=== PATIENT | male | born 1975 | race African-American/Black ===

== ENCOUNTER 2017-12-01 20:26 | Observation (INO) | payer OTHER ==
[~2017-12-01] VITALS: Ht 180.3 cm; Wt 90.5 kg
[2017-12-01] MEDS ORDERED: SODIUM CHLORIDE 0.9% 1000ML 1,000 ML IV STA ×3 (20:57→22:52)
--- NOTE | 2017-12-01 21:04 | EMERGENCY ROOM VISIT NOTE ---
History Report prepared by Casper: Cheri Saldivar Under the Supervision of: Dr. Ray Barnhart M.D. First contact with patient: 20:49 Chief Complaint: SYNCOPE Stated Complaint: VERTIGO/ [facility] Nursing Triage Summary: syncopal episode yesterday after walking around. pt states he gets lighheaded blurry vision after walking around in the evening after he takes his medication depakote and dilatantin History of Present Illness The patient is a 42 year old male who presents to the Emergency Room with complaints of intermittent lightheadedness beginning about a week ago. The patient reports his lightheadedness worsens when he walks. He notes seeing black spots and feeling lightheaded. The patient takes Depakote and Dilantin. The patient reports he recently had his Depakote increased at [facility]. He believes his Depakote levels are too high. The patient reports he had not been eating much recently. He denies any abdominal pain or fevers. Source of History: patient Onset: lightheaded Position: other (gener) Quality: other (lightheadedness) Timing: intermittent Associated Symptoms: No fevers, No abdominal pain Review of Systems See HPI for pertinent positives & negatives. A total of 10 systems reviewed and were otherwise negative. Past Medical & Surgical Medical Problems: (1) Elevated phenytoin level (2) Schizophrenia spectrum disorder with psychotic disorder type not yet determined (3) Seizures Family History Patient reports no known family medical history. Social History Housing Status: other (fdc) Occupation Status: other (prisoner) Current/Historical Medications Scheduled Divalproex Sodium (Divalproex Sodium Dr), 500 MG PO TID Hydrochlorothiazide (Hydrochlorothiazide), 25 MG PO QAM Miscellaneous Medications Calcium Polycarbophil (Fiber Laxative) Allergies Coded Allergies: Acetaminophen (Unverified Allergy, Unknown, unknown, 12/01/17) Chlorpromazine (Unverified Allergy, Unknown, unknown, 12/01/17) Physical Exam Vital Signs Date Time Temp Pulse Resp B/P (MAP) Pulse Ox O2 Delivery O2 Flow Rate FiO2 12/02/17 01:40 76 13 98 12/02/17 01:30 175/107 12/02/17 01:10 76 22 95 12/02/17 01:00 171/110 12/02/17 00:40 74 16 96 12/02/17 00:39 76 12/02/17 00:30 158/94 12/02/17 00:10 76 22 12/02/17 00:05 76 20 12/01/17 23:35 75 17 96 12/01/17 23:30 77 23 182/101 94 12/01/17 23:00 77 13 156/102 95 12/01/17 22:45 74 20 161/104 95 Room Air 12/01/17 21:49 78 20 145/95 12/01/17 20:48 172/97 181/118 191/111 12/01/17 20:47 95 Room Air 12/01/17 20:47 77 12/01/17 20:39 37.1 73 20 172/97 95 Room Air Physical Exam GENERAL: Awake, alert, well-appearing, in no acute distress HENT: Normocephalic, atraumatic. Oropharynx unremarkable. EYES: Normal conjunctiva. Sclera non-icteric. NECK: Supple. No nuchal rigidity. FROM. No JVD. RESPIRATORY: Clear to auscultation. CARDIAC: Regular rate, normal rhythm. Extremities warm and well perfused. Pulses equal. ABDOMEN: Soft, non-distended. No tenderness to palpation. No rebound or guarding. No masses. RECTAL: Deferred. MUSCULOSKELETAL: Chest examination reveals no tenderness. The back is symmetrical on inspection without obvious abnormality. There is no CVA tenderness to palpation. No joint edema. LOWER EXTREMITIES: Calves are equal size bilaterally and non-tender. No edema. No discoloration. NEURO: Normal sensorium. No sensory or motor deficits noted. SKIN: No rash or jaundice noted. Medical Decision & Procedures Laboratory Results Test 12/01/17 20:40 12/01/17 22:08 Total Bilirubin 0.4 mg/dl (0.2-1) Direct Bilirubin < 0.1 mg/dl (0-0.2) Aspartate Amino Transf (AST/SGOT) 14 U/L (15-37) Alanine Aminotransferase (ALT/SGPT) 17 U/L (12-78) Alkaline Phosphatase 95 U/L (45-117) Total Creatine Kinase 117 U/L (39-308) Creatine Kinase MB 1.1 ng/ml (0.5-3.6) Creatine Kinase MB Ratio 0.9 (0-3.0) Total Protein 8.3 gm/dl (6.4-8.2) Albumin 4.0 gm/dl (3.4-5.0) Thyroid Stimulating Hormone (TSH) 1.090 uIu/ml (0.300-4.500) Valproic Acid (Depakene) Level 29 mcg/ml (50-100) Urine Color YELLOW Urine Appearance CLEAR (CLEAR) Urine pH 7.5 (4.5-7.5) Urine Specific [place] 1.013 (1.000-1.030) Urine Protein NEG (NEG) Urine Glucose (UA) NEG (NEG) Urine Ketones NEG (NEG) Urine Occult Blood NEG (NEG) Urine Nitrite NEG (NEG) Urine Bilirubin NEG (NEG) Urine Urobilinogen NEG (NEG) Urine Leukocyte Esterase NEG (NEG) Labs reviewed by ED physician. Medications Administered Medications (Trade) Dose Ordered Sig/Dawson Route Start Time Stop Time Status Last Admin Dose Admin Sodium Chloride 1,000 ml @ 999 mls/hr Q1H1M STAT IV 12/01/17 20:57 12/01/17 21:57 DC 12/01/17 21:08 999 MLS/HR Sodium Chloride 1,000 ml @ 999 mls/hr Q1H1M STAT IV 12/01/17 22:15 12/01/17 23:15 DC 12/01/17 22:17 999 MLS/HR Sodium Chloride 1,000 ml @ 999 mls/hr Q1H1M STAT IV 12/01/17 22:52 12/01/17 23:52 DC 12/01/17 22:56 999 MLS/HR Sodium Chloride 1,000 ml @ 150 mls/hr Q6H40M IV 12/02/17 01:39 12/02/17 15:23 DC 12/02/17 08:51 150 MLS/HR ECG Per My Interpretation Indication: syncope Rate (beats per minute): 80 Rhythm: normal sinus Findings: other (no ST elevation or depression, normal axis ) ED Course 2048: Past medical records reviewed. The patient was evaluated in room B10. A complete history and physical examination was performed. 2056: Ordered Sodium Chloride 1000 ml @ 999 mls/hr. 2214: Ordered Sodium Chloride 1000 ml @ 999 mls/hr. 2051: Ordered Sodium Chloride 1000 ml @ 999 mls/hr. 2215: I discussed the patient's case with the Poison Control Center. They said to give the patient fluids and repeat the level in four hours. Medical Decision Differential diagnosis: Etiologies such as benign positional vertigo, dehydration, hypovolemia, anemia, tumor, infection, hypoglycemia, electrolyte abnormalities, cardiac sources, intracerebral event, toxicologic, neurologic, as well as others were entertained. This is a 42-year-old male presents the emergency department over concerns he has been passing out and seeing black spots. The patient feels his epilepsy medication is too high. His Dilantin was found to be elevated. The patient was given a normal saline bolus 3. He was discussed with poison control who asked that a repeat level be obtained at the 4 hour marilee. When this was found to also be elevated they asked that the patient be admitted to the hospital. I did discuss the case with the hospitalist service who agreed to admit the patient. Patient was in agreement with the treatment plan. Medication Reconcilliation Current Medication List: was personally reviewed by me Impression Primary Impression: Elevated phenytoin level Scribe Attestation The scribe's documentation has been prepared under my direction and personally reviewed by me in its entirety. I confirm that the note above accurately reflects all work, treatment, procedures, and medical decision making performed by me. Departure Information Dispostion Home / Self-Care Prescriptions Hydrochlorothiazide (Hydrochlorothiazide) 25 Mg Tab 25 MG PO QAM for 30 Days, #30 TAB 0 Refills Prov: Josh. Hearn M.D. 12/05/17 Divalproex Sodium (Divalproex Sodium Dr) 500 Mg Tabec 500 MG PO TID for 30 Days, #90 UNIT 0 Refills Prov: Josh. Hearn M.D. 12/05/17 Referrals [facility] (PCP) Patient Instructions My [facility]
[2017-12-01 21:14] LABS: BASO % 0.3 %; BASO ABS # 0.02 K/uL (0-0.2); EOS % 3.6 %; EOS ABS # 0.24 K/uL (0-0.5); HEMATOCRIT 41.8 % (42-52); HEMOGLOBIN 15.6 g/dL (14.0-18.0); IG# 0.02 K/uL (0.00-0.02); LYMPH % 28.4 %; LYMPH ABS # 1.88 K/uL (1.2-3.4); MEAN CELL VOLUME 85.5 fL (80-100); MEAN CORPUSCULAR HEMOGLOBIN 31.9 pg (25-34); MEAN CORPUSCULAR HGB CONC 37.3 g/dl (32-36); MEAN PLATELET VOLUME 9.4 fL (7.4-10.4); MONO % 10.6 %; NEUT % 56.8 %; NEUT ABS # 3.75 K/uL (1.4-6.5); PLATELET COUNT 227 K/uL (130-400); RED CELL DISTRIBUTION WIDTH CV 12.2 % (11.5-14.5); RED CELL DISTRIBUTION WIDTH SD 37.9 fL (36.4-46.3); WHITE BLOOD COUNT 6.61 K/uL (4.8-10.8)
[2017-12-01 21:26] LABS: ALT/SGPT 17 U/L (12-78); BLOOD UREA NITROGEN 10 mg/dl (7-18); CALCIUM 8.7 mg/dl (8.5-10.1); CARBON DIOXIDE 29 mmol/L (21-32); CREATININE 0.83 mg/dl (0.60-1.40); GLUCOSE 134 mg/dl (70-99); POTASSIUM 3.4 mmol/L (3.5-5.1); SODIUM 139 mmol/L (136-145)
[2017-12-01 21:37] LABS: ALKALINE PHOSPHATASE 95 U/L (45-117); AST/SGOT 14 U/L (15-37); CKMB 1.1 ng/ml (0.5-3.6); TOTAL PROTEIN 8.3 gm/dl (6.4-8.2)
[2017-12-01 21:41] LABS: PHENYTOIN (DILANTIN) 43.8 mcg/mL (10-20)
[2017-12-01] MEDS ORDERED: HALO2TAB PO (22:03)
[2017-12-01] MEDS ORDERED: DLN100 PO (22:03)
[2017-12-01] MEDS ORDERED: LEVE250T PO (22:03)
[2017-12-01] MEDS ORDERED: CALC625T4 (22:03)
[2017-12-01] MEDS ORDERED: DIVA500T59 PO (22:03)
[2017-12-02] VITALS (7 sets, daily range): BP systolic 140–174; BP diastolic 79–100; PULSE 70–89; TEMP 36.7–37; O2SAT 96–99; Ht 180.3 cm; Wt 90.5 kg
[2017-12-02] MEDS ORDERED: POLYETHYLENE (MIRALAX) 17 GM PACK PO PRN (01:45)
[2017-12-02] MEDS ORDERED: ALUMINUM/MAGNESIUM/SIMETH (MAALOX MAX) 30 ML UDC PO PRN (01:45)
[2017-12-02] MEDS ORDERED: ONDANSETRON INJ 2 MG/ML 2 ML VIAL IV PRN (01:45)
[2017-12-02] MEDS ORDERED: MAGNESIUM HYDROXIDE SUSP 30 ML UDC PO PRN (01:45)
--- NOTE | 2017-12-02 02:00 | History and Physical ---
History & Physical Date & Time of Service: Dec 02, 2017 at 01:15 Chief Complaint: Vertigo/ Jose Primary Care Physician: Jose ESCOBAR History of Present Illness Source: patient 42M with a PMHx of seizure disorder p/w a one week history of intermittent lightheadedness that has been worsening. Pt reports seeing black spots and feeling lightheaded only when he stands. Chart from detention reviewed, patient reported feeling weak and tired. Pt was sent over for Dilantin level of 38. EKG form [facility] also reviewed and was WNL. In the ED his Phenytoin level was 43.8 and on recheck was 43.8. After consulting poison control IVF and Q6H Phynytoin level checks were recommended. Patient denies any other systemic complaints. He is upset at the detention for letting his Dilantin level go so high. Pt reports taking Haldol in the AM and states he doesn't take Keppra anymore. However [facility] show that he is getting Keppra regularly. Past Medical/Surgical History Medical Problems: (1) Seizures Family History Patient reports no known family medical history. Social History Occupational Status: other (prisoner) Allergies Coded Allergies: Acetaminophen (Unverified Allergy, Unknown, unknown, 12/01/17) Chlorpromazine (Unverified Allergy, Unknown, unknown, 12/01/17) Home Medications Scheduled Divalproex Sodium (Depakote), 1 TAB PO BID Haloperidol (Haloperidol), 1 TAB PO HS Levetiracetam (Keppra), 250 MG PO BID Phenytoin Sodium (Dilantin), 1 CAP PO TID Miscellaneous Medications Calcium Polycarbophil (Fiber Laxative) Review of Systems Constitutional: No fever, No chills Respiratory: No cough, No sputum, No shortness of breath Cardiovascular: No chest pain, No edema Abdomen: + constipation (x 4 days), No pain, No nausea Genitourinary - Male: No hematuria, No dysuria Neurologic: No memory loss, No paralysis, No numbness/tingling Psychiatric: No depression symptoms Integumentary: + problem reported (chronic dermatitis on L treadwell and Left ankle. ) Physical Exam Vital Signs Date Time Temp Pulse Resp B/P (MAP) Pulse Ox O2 Delivery O2 Flow Rate FiO2 12/02/17 00:39 76 12/02/17 00:05 76 20 12/01/17 23:35 75 17 96 12/01/17 23:30 77 23 182/101 94 12/01/17 23:00 77 13 156/102 95 12/01/17 22:45 74 20 161/104 95 Room Air 12/01/17 21:49 78 20 145/95 12/01/17 20:48 172/97 181/118 191/111 12/01/17 20:47 95 Room Air 12/01/17 20:47 77 12/01/17 20:39 37.1 73 20 172/97 95 Room Air General Appearance: WD/WN, no apparent distress Head: normocephalic, atraumatic Eyes: normal inspection, PERRL ENT: normal ENT inspection Neck: supple, no adenopathy, no JVD Respiratory/Chest: chest non-tender, lungs clear, normal breath sounds, no respiratory distress, no accessory muscle use Cardiovascular: regular rate, rhythm, no edema, no gallop, no JVD, no murmur, normal peripheral pulses Abdomen/GI: normal bowel sounds, non tender, soft, no organomegaly, no pulsatile mass Back: normal inspection, no CVA tenderness Extremities/Musculoskelatal: normal inspection, no calf tenderness, normal capillary refill, no pedal edema Neurologic/Psych: professor of english II-XII nml as tested, no motor/sensory deficits, alert, normal mood/affect, oriented x 3 Skin: normal color, warm/dry, no rash Diagnostics Laboratory Results Results Past 24 Hours Test 12/01/17 20:40 12/01/17 22:08 12/01/17 23:42 Range/Units White Blood Count 6.61 4.8-10.8 K/uL Red Blood Count 4.89 4.7-6.1 M/uL Hemoglobin 15.6 14.0-18.0 g/dL Hematocrit 41.8 42-52 % Mean Corpuscular Volume 85.5 80-100 fL Mean Corpuscular Hemoglobin 31.9 25-34 pg Mean Corpuscular Hemoglobin Concent 37.3 32-36 g/dl Platelet Count 227 130-400 K/uL Mean Platelet Volume 9.4 7.4-10.4 fL Neutrophils (%) (Auto) 56.8 % Lymphocytes (%) (Auto) 28.4 % Monocytes (%) (Auto) 10.6 % Eosinophils (%) (Auto) 3.6 % Basophils (%) (Auto) 0.3 % Neutrophils # (Auto) 3.75 1.4-6.5 K/uL Lymphocytes # (Auto) 1.88 1.2-3.4 K/uL Monocytes # (Auto) 0.70 0.11-0.59 K/uL Eosinophils # (Auto) 0.24 0-0.5 K/uL Basophils # (Auto) 0.02 0-0.2 K/uL RDW Standard Deviation 37.9 36.4-46.3 fL RDW Coefficient of Variation 12.2 11.5-14.5 % Immature Granulocyte % (Auto) 0.3 % Immature Granulocyte # (Auto) 0.02 0.00-0.02 K/uL Sodium Level 139 136-145 mmol/L Potassium Level 3.4 3.5-5.1 mmol/L Chloride Level 105 98-107 mmol/L Carbon Dioxide Level 29 21-32 mmol/L Anion Gap 5.0 3-11 mmol/L Blood Urea Nitrogen 10 7-18 mg/dl Creatinine 0.83 0.60-1.40 mg/dl Est Creatinine Clear Calc Drug Dose 123.4 ml/min Estimated GFR () 125.8 Estimated GFR (Non- 108.5 BUN/Creatinine Ratio 12.1 10-20 Random Glucose 134 70-99 mg/dl Calcium Level 8.7 8.5-10.1 mg/dl Total Bilirubin 0.4 0.2-1 mg/dl Direct Bilirubin < 0.1 0-0.2 mg/dl Aspartate Amino Transf (AST/SGOT) 14 15-37 U/L Alanine Aminotransferase (ALT/SGPT) 17 12-78 U/L Alkaline Phosphatase 95 45-117 U/L Total Creatine Kinase 117 39-308 U/L Creatine Kinase MB 1.1 0.5-3.6 ng/ml Creatine Kinase MB Ratio 0.9 0-3.0 Troponin I < 0.015 0-0.045 ng/ml Total Protein 8.3 6.4-8.2 gm/dl Albumin 4.0 3.4-5.0 gm/dl Thyroid Stimulating Hormone (TSH) 1.090 0.300-4.500 uIu/ml Phenytoin (Dilantin) Level 43.8 43.8 10-20 mcg/mL Valproic Acid (Depakene) Level 29 50-100 mcg/ml Urine Color YELLOW Urine Appearance CLEAR CLEAR Urine pH 7.5 4.5-7.5 Urine Specific [place] 1.013 1.000-1.030 Urine Protein NEG NEG Urine Glucose (UA) NEG NEG Urine Ketones NEG NEG Urine Occult Blood NEG NEG Urine Nitrite NEG NEG Urine Bilirubin NEG NEG Urine Urobilinogen NEG NEG Urine Leukocyte Esterase NEG NEG EKG Normal sinus rhythm Normal ECG No previous ECGs available Impression Assessment and Plan 42M p/w Phenytoin level of 43.8. Called poison control, they recommend checking it serially until it comes down to normal limits. Elevated Phenytoin (Dilantin) Called poison control and spoke to them directly, they recommend IVF and serial monitoring until the Phenytoin Levels come down to within normal limits. If patient is symptomatic they might need dialysis. Will check Dilantin Level Q6H. Hold Dilantin IVF NSS at 150mls/hr. Seizure Disorder Pt states that he doesn't take Keppra anymore, just depakote and Dilantin, however the detention records were reviewed by myself and it states that he does take Depakote, Keppra and Dilantin. Will continue Keppra and Depakote as stated in med rec and hold Phenytoin. Mood Disorder c/w Haldol 2mg QAM Dispo: From [facility]. Diet: Regular. Dispo: Obs to Tele. FULL CODE. Resident Involvement: Resident Care Provided Care Provided: Adult Hospital Medicine Reviewed: Pt Seen/Exam by Me History Patient seen and examined, chart reviewed, case discussed [facility] Dr. Magana and I agree with his assessement and plan. Briefly, patient is a 42yo AA male with history of seizure disorder who presents with Dilantin toxicity. Patient takes Dilantin daily, began feeling that he was unsteady on his feet and having some visual disturbances - black spots. His Dilantin level at the detention was found to be 38, in ER levels 43.8 x 2 draws. Poison control was contacted and recommended to monitor Dilantin level q 6 hours until resolution and IV hydration. Presently patient is without complaints. He states that he feels well. Denies pain, palpitations, SOB, n/v/d/c. Constitutional: acknowledges: no symptoms reported EENTM: acknowledges: no symptoms reported Respiratory: positive: no symptoms reported Cardiovascular: reports no symptoms reported Gastrointestinal/Abdominal: positive: no symptoms reported Musculoskeletal: positive: no symptoms reported General Appearance: WD/WN, no apparent distress Eye Exam: bilateral eye normal inspection, bilateral eye PERRL, bilateral eye EOMI Ears, Nose, Throat: normal ENT inspection Neck: non-tender, supple, trachea midline Respiratory: lungs clear, normal breath sounds, no respiratory distress, no accessory muscle use Cardiovascular: normal peripheral pulses, regular rate, rhythm, no edema, no gallop, no murmur Gastrointestinal: normal bowel sounds, non tender, soft Extremities: normal range of motion Neurologic/Psychiatric: no motor/sensory deficits (patient is giggling during exam), alert Skin Characteristics: normal color, warm/dry Assessment/Plan 42yo incarcerated AA male with history of seizures presents with Dilantin toxicity, level 43.8 1. Dilantin toxicity -Continue to monitor dilantin level q 6 hours -Continue IVF at 150mL/hr -Continue to monitor mental state, should patient decompensate will contact poison control -Check urine toxicology and acetaminophen level for possible coingestants 2. Seizure disorder - Continue Keppra and Depakote at prescribed doses 3. Mood disorder - Continue Haldol at prescribed dose 4. HTN - patient with elevated blood pressure this evening, 174/100. Asymptomatic. Continue to monitor for now. Will start PRN antihypertensive agent if persistently elevated 5. Remainder of plan per PGY2 note
[2017-12-02] MEDS: SODIUM CHLORIDE 0.9% 1000ML 1,000 ML IV SCH ×3 (03:00→18:08)
[2017-12-02] MEDS ORDERED: INFLUENZA VIRUS QUAD VACCINE 0.5 ML SYR IM. ONE (04:15)
[2017-12-02] MEDS ORDERED: INFLUENZA ADMINISTRATION CHARGE ONE (04:15)
[2017-12-02] MEDS ORDERED: IV FLUIDS COMPLETED PRN (04:30)
[2017-12-02 06:24] LABS: INR 1.1 (0.9-1.1)
[2017-12-02 06:39] LABS: CALCIUM 8.5 mg/dl (8.5-10.1); CREATININE 0.73 mg/dl (0.60-1.40); POTASSIUM 3.6 mmol/L (3.5-5.1)
[2017-12-02] MEDS: DIVALPROEX SODIUM 500 MG DELAY RELEASE TAB PO SCH ×2 (07:45→22:11)
[2017-12-02] MEDS: LEVETIRACETAM 250 MG TAB PO SCH ×2 (07:45→22:10)
[2017-12-02] MEDS: HEPARIN SOD 5000 UNIT/0.5 ML CARP SQ SCH ×2 (08:52→21:00)
[2017-12-02] MEDS ORDERED: HALOPERIDOL 1 MG TAB PO SCH (09:00)
--- NOTE | 2017-12-02 09:08 | Family Medicine Progress Note ---
Progress Note Date of Service Dec 02, 2017. Subjective Found patient sitting up, awake, conversing easily and lucidly. He says he's been taking the dilantin as prescribed and noted the symptoms per the HPI that resulted in his transfer here. At present, says his vision is a little blurry and that he still feels off-balance only when he is walking. Denies any focal weakness, numbness/tingling, headache, N/V, or other focal neuro concerns. He has concerns about being on haldol, saying it started about a week ago. He says he asked the medical staff at [facility] not to take it, they then said that would be a refusal of treatment, and the patient has concerns that would impact his future parole status. He denies any other acute medical concerns. Constitutional: No fever, No chills Eyes: + worsening of vision Respiratory: No cough, No shortness of breath Cardiovascular: No chest pain, No edema Abdomen: No pain, No nausea, No vomiting Neurologic: + balance problems, No weakness, No numbness/tingling Medications Current Inpatient Medications Medications (Trade) Dose Ordered Sig/Dawson Route Start Time Stop Time Status Last Admin Dose Admin Heparin Sodium (Porcine) (Heparin Sq 5000 Unit/0.5ml) 5,000 unit Q12 SQ 12/02/17 09:00 01/01/18 08:59 12/02/17 08:52 5,000 UNIT Sodium Chloride 1,000 ml @ 150 mls/hr [id number] IV 12/02/17 01:39 12/02/17 21:38 12/02/17 08:51 150 MLS/HR Al Hydrox/Mg Hydrox/Simethicone (Maalox Max Susp) 15 ml Q4H PRN PO 12/02/17 01:45 01/01/18 01:44 Magnesium Hydroxide (Milk Of Magnesia Susp) 30 ml Q12H PRN PO 12/02/17 01:45 01/01/18 01:44 Ondansetron HCl (Zofran Inj) 4 mg Q6H PRN IV 12/02/17 01:45 01/01/18 01:44 Polyethylene (Miralax Powder Packet) 17 gm DAILY PRN PO 12/02/17 01:45 01/01/18 01:44 Divalproex Sodium (Depakote Delay Rel Tab) 500 mg BID PO 12/02/17 09:00 01/01/18 08:59 12/02/17 07:45 500 MG Levetiracetam (Keppra Tab) 250 mg BID PO 12/02/17 09:00 01/01/18 08:59 12/02/17 07:45 250 MG Haloperidol (Haldol Tab) 2 mg QAM PO 12/02/17 09:00 01/01/18 08:59 12/02/17 07:45 2 MG Miscellaneous (Iv Fluids Completed) 1 ea PRN PRN N/A 12/02/17 04:30 12/02/18 04:29 Objective Vital Signs Date Time Temp Pulse Resp B/P (MAP) Pulse Ox O2 Delivery O2 Flow Rate FiO2 12/02/17 07:25 37.0 71 20 157/95 (115) 98 12/02/17 04:00 Room Air 12/02/17 02:35 36.7 73 19 174/100 97 Room Air 12/02/17 02:10 72 20 97 12/02/17 02:00 144/87 12/02/17 01:40 76 13 98 12/02/17 01:30 175/107 12/02/17 01:10 76 22 95 12/02/17 01:00 171/110 12/02/17 00:40 74 16 96 12/02/17 00:39 76 12/02/17 00:30 158/94 12/02/17 00:10 76 22 12/02/17 00:05 76 20 12/01/17 23:35 75 17 96 12/01/17 23:30 77 23 182/101 94 12/01/17 23:00 77 13 156/102 95 12/01/17 22:45 74 20 161/104 95 Room Air 12/01/17 21:49 78 20 145/95 12/01/17 20:48 172/97 181/118 191/111 12/01/17 20:47 95 Room Air 12/01/17 20:47 77 12/01/17 20:39 37.1 73 20 172/97 95 Room Air Physical Exam Notes: General Appearance: Awake, alert & oriented, conversing clearly and comfortably in general, NAD. CV: +S1S2 RRR, no murmur. No peripheral edema. Pulm: Clear to auscultation throughout. Abdomen: +BS, soft, non-tender, non-distended. Extremities: No pedal edema or calf tenderness. Moving all extremities naturally and easily. Neuro: Awake, alert x 3, in NAD. Says his vision is a little blurry. Denies any difficulty/weakness or numbness/tingling with extremity movements. [ Patient has related restraints present due to being under guard.] Later in afternoon, can walk without assistance and without any ataxia. Lines: PIV Laboratory Results 12/01/17 20:40 Red Blood Count 4.89, Mean Corpuscular Volume 85.5, Mean Corpuscular Hemoglobin 31.9, Mean Corpuscular Hemoglobin Concent 37.3, Mean Platelet Volume 9.4, Neutrophils (%) (Auto) 56.8, Lymphocytes (%) (Auto) 28.4, Monocytes (%) (Auto) 10.6, Eosinophils (%) (Auto) 3.6, Basophils (%) (Auto) 0.3, Neutrophils # (Auto ) 3.75, Lymphocytes # (Auto) 1.88, Monocytes # (Auto) 0.70, Eosinophils # (Auto ) 0.24, Basophils # (Auto) 0.02 12/02/17 06:00 Test 12/01/17 20:40 12/01/17 22:08 12/02/17 03:05 12/02/17 06:00 White Blood Count 6.61 K/uL (4.8-10.8) Red Blood Count 4.89 M/uL (4.7-6.1) Hemoglobin 15.6 g/dL (14.0-18.0) Hematocrit 41.8 % (42-52) Mean Corpuscular Volume 85.5 fL (80-100) Mean Corpuscular Hemoglobin 31.9 pg (25-34) Mean Corpuscular Hemoglobin Concent 37.3 g/dl (32-36) Platelet Count 227 K/uL (130-400) Mean Platelet Volume 9.4 fL (7.4-10.4) Neutrophils (%) (Auto) 56.8 % Lymphocytes (%) (Auto) 28.4 % Monocytes (%) (Auto) 10.6 % Eosinophils (%) (Auto) 3.6 % Basophils (%) (Auto) 0.3 % Neutrophils # (Auto) 3.75 K/uL (1.4-6.5) Lymphocytes # (Auto) 1.88 K/uL (1.2-3.4) Monocytes # (Auto) 0.70 K/uL (0.11-0.59) Eosinophils # (Auto) 0.24 K/uL (0-0.5) Basophils # (Auto) 0.02 K/uL (0-0.2) RDW Standard Deviation 37.9 fL (36.4-46.3) RDW Coefficient of Variation 12.2 % (11.5-14.5) Immature Granulocyte % (Auto) 0.3 % Immature Granulocyte # (Auto) 0.02 K/uL (0.00-0.02) Total Bilirubin 0.4 mg/dl (0.2-1) Direct Bilirubin < 0.1 mg/dl (0-0.2) Aspartate Amino Transf (AST/SGOT) 14 U/L (15-37) Alanine Aminotransferase (ALT/SGPT) 17 U/L (12-78) Alkaline Phosphatase 95 U/L (45-117) Total Creatine Kinase 117 U/L (39-308) Creatine Kinase MB 1.1 ng/ml (0.5-3.6) Creatine Kinase MB Ratio 0.9 (0-3.0) Troponin I < 0.015 ng/ml (0-0.045) Total Protein 8.3 gm/dl (6.4-8.2) Albumin 4.0 gm/dl (3.4-5.0) Thyroid Stimulating Hormone (TSH) 1.090 uIu/ml (0.300-4.500) Valproic Acid (Depakene) Level 29 mcg/ml (50-100) Urine Color YELLOW Urine Appearance CLEAR (CLEAR) Urine pH 7.5 (4.5-7.5) Urine Specific [place] 1.013 (1.000-1.030) Urine Protein NEG (NEG) Urine Glucose (UA) NEG (NEG) Urine Ketones NEG (NEG) Urine Occult Blood NEG (NEG) Urine Nitrite NEG (NEG) Urine Bilirubin NEG (NEG) Urine Urobilinogen NEG (NEG) Urine Leukocyte Esterase NEG (NEG) Urine Opiates Screen NEG (NEG) Urine Methadone, Qualitative NEG (NEG) Urine Barbiturates NEG (NEG) Urine Phencyclidine (PCP) Level NEG (NEG) Ur Amphetamine/Methamphetamine NEG (NEG) MDMA (Ecstasy) Screen NEG (NEG) Urine Benzodiazepines Screen NEG (NEG) Urine Cocaine Metabolite NEG (NEG) Urine Marijuana (THC) NEG (NEG) Prothrombin Time 11.4 SECONDS (9.0-12.0) Prothromb Time International Ratio 1.1 (0.9-1.1) Anion Gap 7.0 mmol/L (3-11) Est Creatinine Clear Calc Drug Dose 140.3 ml/min Estimated GFR () 132.6 Estimated GFR (Non- 114.4 BUN/Creatinine Ratio 10.2 (10-20) Calcium Level 8.5 mg/dl (8.5-10.1) Phenytoin (Dilantin) Level 44.9 mcg/mL (10-20) Date/Time Source Procedure Growth Status 12/02/17 03:56 Nasal MRSA DNA Surveillance Screen - Final Specimen Negative for MRSA by DNA Probe Complete Assessment and Plan 42 yo male admitted on [id number] for ataxia, visual disturbances, and supratherapeutic Dilantin level. PMH: Seizures, hemorrhoids, ? unspecified schizophrenia spectrum Dilantin toxicity: Reported initial symptoms of ataxia and visual disturbances ( black spots). Dilantin level 43. Serial measurements ongoing. Treatment is supportive. This AM, no evidence of AMS or acute seizures. Seizure disorder: Per [facility] medical records, is on keppra, depakote, and dilantin. Patient says last seizure was in May 2016. There is some concern about his being on three medications of (per patient) serially-increasing levels without reported seizure worsening. Admittedly, full records from [facility] are not acutely available. - Consulted neurology in hopes of providing updated recommendations for outpatient seizure prophylaxis management. ? Unspecified schizophrenia spectrum: Per provided [facility] medical reconciliation, started on Haldol 2 mg daily about a week prior to admission. Patient says he is unsure why he is on this medication, denying any visual or auditory hallucinations in recent years (but does admit he has had such in the past). He expresses concerns that he is being required to take the medication against his will at [facility], meaning if he does not do so it will be recorded as a treatment refusal (which reportedly can effect his parole status). - Holding haldol dosing as inpatient for now. - Consulted psychiatry in hopes of providing updated recommendations for outpatient use (or hold) of this medication. Code status: Full code Diet: Regular DVT prophy: Heparin q12h PT/OT: Deferred. Disbo: Admit to med/surg. Resident at [facility]. Resident Physician Supervision Note: I was present with Dr. Hearn during the history and exam. I discussed the case with the resident and agree with the findings and plan as documented in the note. Any exceptions or clarifications are listed here: The patient reports mild but progressive symptoms for about 10 months, which he believes started shortly after his Dilantin was increased upon his transfer from [facility] to [facility]. The patient describes a mental fog and generalized slowness. More recently, haldol was added to his medical regimen and he noted an acute worsening of symptoms, including ataxia and visual disturbances. He reports his last seizure was in 2015. He cannot recall or os not aware of his last Dilantin level prior to this admission. Continue to hold Dilantin; since he was on extended release, may take a while to normalize. Once it improves, can space out Dilantin levels. Decrease IVF to 75/hr. Will also hold Haldol for the time being; his psychiatric history and diagnosis are not clear at this point, and the Haldol was only recently started (in the setting of a supra therapeutic Dilantin level). Documented By: Juan Bustamante Resident Tracking Resident Involvement: Resident Care Provided Care Provided: Adult Hospital Medicine (inpatient)
[2017-12-03] VITALS (11 sets, daily range): BP systolic 134–157; BP diastolic 81–96; PULSE 69–85; TEMP 36.5–37.1; O2SAT 94–98
[2017-12-03] MEDS: SODIUM CHLORIDE 0.9% 1000ML 1,000 ML IV SCH ×2 (06:18→19:38)
[2017-12-03 06:32] LABS: CALCIUM 8.4 mg/dl (8.5-10.1); CREATININE 0.78 mg/dl (0.60-1.40); POTASSIUM 3.6 mmol/L (3.5-5.1)
[2017-12-03 06:42] LABS: HEMATOCRIT 41.8 % (42-52); HEMOGLOBIN 15.4 g/dL (14.0-18.0); MEAN CELL VOLUME 84.4 fL (80-100); MEAN CORPUSCULAR HEMOGLOBIN 31.1 pg (25-34); MEAN CORPUSCULAR HGB CONC 36.8 g/dl (32-36); MEAN PLATELET VOLUME 9.4 fL (7.4-10.4); PLATELET COUNT 204 K/uL (130-400); RED CELL DISTRIBUTION WIDTH CV 12.3 % (11.5-14.5); RED CELL DISTRIBUTION WIDTH SD 37.8 fL (36.4-46.3); WHITE BLOOD COUNT 6.69 K/uL (4.8-10.8)
[2017-12-03 06:47] LABS: BASO % 0.1 %; BASO ABS # 0.01 K/uL (0-0.2); EOS % 2.8 %; EOS ABS # 0.19 K/uL (0-0.5); IG# 0.01 K/uL (0.00-0.02); LYMPH % 25.3 %; LYMPH ABS # 1.69 K/uL (1.2-3.4); MONO % 14.2 %; MONO ABS # 0.95 K/uL (0.11-0.59); NEUT % 57.5 %; NEUT ABS # 3.84 K/uL (1.4-6.5)
[2017-12-03] MEDS: DIVALPROEX SODIUM 500 MG DELAY RELEASE TAB PO SCH ×3 (08:28→20:44)
[2017-12-03] MEDS: LEVETIRACETAM 250 MG TAB PO SCH (08:28)
[2017-12-03] MEDS: HEPARIN SOD 5000 UNIT/0.5 ML CARP SQ SCH ×2 (08:30→20:45)
--- NOTE | 2017-12-03 12:54 | Neurology Consultation ---
Neurology Consultation Date of Consultation: Dec 03, 2017. Attending Physician: Juan Bustamante D.O. Primary Care Physician: Jose ESCOBAR Reason for Consultation: Consult for seizure medication management History of Present Illness Source: patient, hospital records This is a 42-year-old male who presents with symptoms of lightheadedness for the past week. There are reports that his Depakote was recently increased. Reports that he has been on Dilantin for a long time but cannot tell me specifically how long. History somewhat limited from the patient the patient often does not give very exact details for his epilepsy history and management. He reports that he first started to have seizures somewhere between the age of 9 and 13 years old. He cannot tell me if there is any warning auras beforehand or what the seizure description is. He reports that he has been on Dilantin and Depakote for a long time. He reports his highest dose of Depakote was 500 mg 3 times a day. He denies any recent changes to his Dilantin. He reports that Keppra was the most recent medication added on but made him sleepy and he felt that it should have been stopped although he is not certain why it was still being given in the alf. He reports that his last seizure was May 2016. 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 He reports that he has had CT of the heads in the past but never any EEGs. He does not remember ever seen a neurologist in the past. He reports a family history of his father also having seizures. No other family members with known seizures. This morning the patient still feels dizzy when he gets up and moves around but otherwise seems slightly better than when he initially presented. Labs were reviewed. Unremarkable CBC and complete metabolic panel. Valproic acid level was 29. Phenytoin level was 44 on presentation and most recently 38 Past Medical/Surgical History Reports of some sort of schizophrenia spectrum disorder Patient reports a history of suicidal ideation Family History Family history father with seizures Social History Currently the patient is incarcerated. He denies any tobacco, alcohol, or illegal drug use Housing Status: other (alf) Occupation Status: other (prisoner) Allergies Coded Allergies: Acetaminophen (Unverified Allergy, Unknown, unknown, 12/01/17) Chlorpromazine (Unverified Allergy, Unknown, unknown, 12/01/17) Current Inpatient Medications Current Inpatient Medications Medications (Trade) Dose Ordered Sig/Dawson Route Start Time Stop Time Status Last Admin Dose Admin Heparin Sodium (Porcine) (Heparin Sq 5000 Unit/0.5ml) 5,000 unit Q12 SQ 12/02/17 09:00 01/01/18 08:59 12/03/17 08:30 5,000 UNIT Al Hydrox/Mg Hydrox/Simethicone (Maalox Max Susp) 15 ml Q4H PRN PO 12/02/17 01:45 01/01/18 01:44 Magnesium Hydroxide (Milk Of Magnesia Susp) 30 ml Q12H PRN PO 12/02/17 01:45 01/01/18 01:44 Ondansetron HCl (Zofran Inj) 4 mg Q6H PRN IV 12/02/17 01:45 01/01/18 01:44 Polyethylene (Miralax Powder Packet) 17 gm DAILY PRN PO 12/02/17 01:45 01/01/18 01:44 Divalproex Sodium (Depakote Delay Rel Tab) 500 mg BID PO 12/02/17 09:00 01/01/18 08:59 12/03/17 08:28 500 MG Levetiracetam (Keppra Tab) 250 mg BID PO 12/02/17 09:00 01/01/18 08:59 12/03/17 08:28 250 MG Miscellaneous (Iv Fluids Completed) 1 ea PRN PRN N/A 12/02/17 04:30 12/02/18 04:29 Sodium Chloride 1,000 ml @ 75 mls/hr [id number] IV 12/02/17 17:45 01/01/18 17:44 12/03/17 06:18 75 MLS/HR Review of Systems Complete review of systems otherwise negative except for the above-noted in HPI Physical Exam Vital Signs (Past 24 Hrs): Date Time Temp Pulse Resp B/P (MAP) Pulse Ox O2 Delivery O2 Flow Rate FiO2 12/03/17 11:36 36.9 85 18 148/88 (108) 98 12/03/17 08:00 95 Room Air 12/03/17 07:19 36.9 69 18 142/82 (102) 95 12/03/17 04:00 36.7 76 18 134/88 (103) 97 Room Air 12/03/17 04:00 Room Air 3/31/18 00:00 Room Air 12/03/17 00:00 36.5 81 18 153/96 (115) 94 Room Air 12/02/17 20:13 36.9 89 20 140/79 (99) 99 Room Air 12/02/17 20:00 96 Room Air 12/02/17 16:00 96 Room Air 12/02/17 14:33 37.0 78 18 160/93 (115) 96 Gen.: Patient is alert and sitting in bed, in no acute distress. HEENT: Normocephalic /atraumatic, no scleral icterus Heart: Regular rate and rhythm Extremities: No gross deformities or rashes noted Neurological examination: Mental status: Patient is alert and oriented x3. Attention and concentration normal for the situation. Poor fund of knowledge. Recent memory intact. Remote memory seems questionable, and overall the patient is a poor historian. Speech is fluent without any dysarthria or aphasia noted Cranial nerve: Funduscopic examination was unremarkable. No papilledema. Pupils equally round and reactive to light. Extraocular muscles intact without nystagmus. No facial asymmetry noted. Facial sensation intact. Tongue is midline. Good palatal elevation. Good shoulder shrug bilaterally. Hearing grossly intact to voice. Strength: 5/5 both proximal and distally in all extremities. There is no arm drift. Tone is normal. Sensation: Grossly intact to light touch in all extremities. Deep tendon reflexes: +1 in bilateral biceps, brachioradialis and patellar. Coordination: Patient had good finger to nose without dysmetria Station within the bed was normal Laboratory Results Past 24 Hours: 12/03/17 05:25 Red Blood Count 4.95, Mean Corpuscular Volume 84.4, Mean Corpuscular Hemoglobin 31.1, Mean Corpuscular Hemoglobin Concent 36.8, Mean Platelet Volume 9.4, Neutrophils (%) (Auto) 57.5, Lymphocytes (%) (Auto) 25.3, Monocytes (%) (Auto) 14.2, Eosinophils (%) (Auto) 2.8, Basophils (%) (Auto) 0.1, Neutrophils # (Auto ) 3.84, Lymphocytes # (Auto) 1.69, Monocytes # (Auto) 0.95, Eosinophils # (Auto ) 0.19, Basophils # (Auto) 0.01 12/03/17 05:25 Test 3/31/18 05:25 White Blood Count 6.69 K/uL (4.8-10.8) Red Blood Count 4.95 M/uL (4.7-6.1) Hemoglobin 15.4 g/dL (14.0-18.0) Hematocrit 41.8 % (42-52) Mean Corpuscular Volume 84.4 fL (80-100) Mean Corpuscular Hemoglobin 31.1 pg (25-34) Mean Corpuscular Hemoglobin Concent 36.8 g/dl (32-36) Platelet Count 204 K/uL (130-400) Mean Platelet Volume 9.4 fL (7.4-10.4) Neutrophils (%) (Auto) 57.5 % Lymphocytes (%) (Auto) 25.3 % Monocytes (%) (Auto) 14.2 % Eosinophils (%) (Auto) 2.8 % Basophils (%) (Auto) 0.1 % Neutrophils # (Auto) 3.84 K/uL (1.4-6.5) Lymphocytes # (Auto) 1.69 K/uL (1.2-3.4) Monocytes # (Auto) 0.95 K/uL (0.11-0.59) Eosinophils # (Auto) 0.19 K/uL (0-0.5) Basophils # (Auto) 0.01 K/uL (0-0.2) RDW Standard Deviation 37.8 fL (36.4-46.3) RDW Coefficient of Variation 12.3 % (11.5-14.5) Immature Granulocyte % (Auto) 0.1 % Immature Granulocyte # (Auto) 0.01 K/uL (0.00-0.02) Toxic Vacuolation 1+ Anion Gap 6.0 mmol/L (3-11) Est Creatinine Clear Calc Drug Dose 131.3 ml/min Estimated GFR () 129.0 Estimated GFR (Non- 111.3 BUN/Creatinine Ratio 13.3 (10-20) Calcium Level 8.4 mg/dl (8.5-10.1) Phenytoin (Dilantin) Level 38.3 mcg/mL (10-20) Impression This is a 42-year-old male who presented with Dilantin toxicity. More than likely any recent increase in Depakote could have raised his Dilantin level. Coadministration of Depakote and Dilantin tends to decrease Depakote level and increase Dilantin level. Overall it is not clear to me why the patient is on 3 seizure medications when neither of them are at maximal effective dose, and the patient is likely experiencing polypharmacy from these medications. Patient's history of epilepsy is not well-established at this time and it is unclear to me if he has ever had a complete workup such as an MRI of the brain and EEG. Plan Overall Dilantin is probably not the best medication for the patient to be on long-term due to adverse long-term side effects. In addition Keppra is probably not the best medication for the patient to be on due to risk of worsening mood and psychiatric symptoms. Trying to optimize Depakote would probably be the best option for the patient. Recommend permanently discontinuing phenytoin and Keppra. Patient has been on higher doses of Depakote in the past. When the patient is no longer toxic from Dilantin, would consider increasing Depakote back up to 500 mg 3 times daily (which the patient reports he has been on in the past without any side effects). Patient will need CBC and complete metabolic panel every 6 months while on Depakote to monitor for drug toxicity. Depakote dosing does not necessarily need to be increased if the patient is not having clinical seizures ( even if levels are low) If there is concern for additional clinical seizure in the future the patient will probably benefit from a neurology outpatient workup to try to classify and establish what type of seizures he has. Thank you for allowing me to participate in this patient's care. If there is any questions or concerns, feel free to call/page me.
--- NOTE | 2017-12-03 13:16 | Psychiatric Consultation ---
Consultation Date of Consultation Dec 03, 2017. Identifying Data The patient is a 42 year old Male, incarcerated at [facility] since October 2017 and who has a past psychiatric history of ADHD and unspecified Schizophrenia Spectrum Disorder as well as past medical history of Seizure Disorder recently admitted complaints of light headedness, feeling weak and tired a few days prior to admission in the context of an elevated Dilantin level. Prior to these symptoms, the patient reports he had been feeling well. He is awaiting parole. Chief Complaint "I was told to come here". History of Present Illness The patient is a 42 year old Male with history of Unspecified Schizophrenia Spectrum Disorder and Seizure Disorder who was admitted to the general medical floor after ED evaluation on 12/01/17 due to Dilantin toxicity in the context of new onset physical symptoms of unwitnessed syncope, light headedness, fatigue and weakness beginning a few days prior to to admission. The patient reports on 12/01/17 he received a mandatory notice to report to the intermediate medical office due to a medication related issue. He was unsure what the issue was and relates that he had no physical complaints at that time. He was told his Dilantin levels were elevated which necessitated evaluation and treatment in the ED. The patient also relates that a few days prior to his recent symptoms, he was prescribed Haldol by his intermediate psychiatrists after a routine visit. He reports being asked if he was experiencing A/V Hallucinations of which he denied.However , after speaking with [facility] AOC DIRECTOR INTELLIGENCE OFFICERPayton Ocasio, the medical record reveals that the patient did express acute onset of auditory hallucinations. The AOC DIRECTOR INTELLIGENCE OFFICER reports there is no record of the patient reporting auditory symptoms prior to this. The patient denies feeling down, depressed and hopeless. He denies SI/HI plan or intent. He admits to feeling anxious because he wants to make parole. He reports his sleep and appetite are good. Energy and motivation levels are good. Denies nicole, hypomania or psychosis symptoms. He reports feeling physically well. Past Psychiatric History Current OP Treatment: psychiatrist Prior OP Treatment: no prior treatment Prior Psych Hospitalizations: none Access to a Gun: No Suicide Attempts: No Past Medical/Surgical History History of Concussion/Seizure: Yes Allergies Allergies: Coded Allergies: Acetaminophen (Unverified Allergy, Unknown, unknown, 12/01/17) Chlorpromazine (Unverified Allergy, Unknown, unknown, 12/01/17) Home Medications Scheduled Divalproex Sodium (Divalproex Sodium Dr), 500 MG PO TID Hydrochlorothiazide (Hydrochlorothiazide), 25 MG PO QAM Miscellaneous Medications Calcium Polycarbophil (Fiber Laxative) Family History Patient reports no known family medical history. History of Suicide: No History of Substance Abuse: No Psychiatric History: No Alcohol Use Alcohol Use In Past 12 Months: No Smoking Use Smoking Status: Never Smoker Personal History Education: started high school Relationship History: never Children: 7 children: 6 boys and 1 girl Legal History: reported (multiple incarcerations) Review of Systems Psych: denies symptoms other than stated above Constitutional: denied Cardiovascular: denied GI: denied Neurologic: denied Remainder of 10 body systems also reviewed and denied other than noted above. Examination Vital Signs Vital Signs Past 12 Hours Date Time Temp Pulse Resp B/P (MAP) Pulse Ox O2 Delivery O2 Flow Rate FiO2 12/03/17 11:36 36.9 85 18 148/88 (108) 98 12/03/17 08:00 95 Room Air 12/03/17 07:19 36.9 69 18 142/82 (102) 95 12/03/17 04:00 36.7 76 18 134/88 (103) 97 Room Air 12/03/17 04:00 Room Air 12/03/17 00:00 Room Air 12/03/17 00:00 36.5 81 18 153/96 (115) 94 Room Air Laboratory Results Last 24 Hours Test 12/02/17 12:08 12/02/17 18:07 12/03/17 05:25 Phenytoin (Dilantin) Level 41.5 mcg/mL 37.9 mcg/mL 38.3 mcg/mL White Blood Count 6.69 K/uL Red Blood Count 4.95 M/uL Hemoglobin 15.4 g/dL Hematocrit 41.8 % Mean Corpuscular Volume 84.4 fL Mean Corpuscular Hemoglobin 31.1 pg Mean Corpuscular Hemoglobin Concent 36.8 g/dl Platelet Count 204 K/uL Mean Platelet Volume 9.4 fL Neutrophils (%) (Auto) 57.5 % Lymphocytes (%) (Auto) 25.3 % Monocytes (%) (Auto) 14.2 % Eosinophils (%) (Auto) 2.8 % Basophils (%) (Auto) 0.1 % Neutrophils # (Auto) 3.84 K/uL Lymphocytes # (Auto) 1.69 K/uL Monocytes # (Auto) 0.95 K/uL Eosinophils # (Auto) 0.19 K/uL Basophils # (Auto) 0.01 K/uL RDW Standard Deviation 37.8 fL RDW Coefficient of Variation 12.3 % Immature Granulocyte % (Auto) 0.1 % Immature Granulocyte # (Auto) 0.01 K/uL Toxic Vacuolation 1+ Sodium Level 138 mmol/L Potassium Level 3.6 mmol/L Chloride Level 104 mmol/L Carbon Dioxide Level 28 mmol/L Anion Gap 6.0 mmol/L Blood Urea Nitrogen 10 mg/dl Creatinine 0.78 mg/dl Est Creatinine Clear Calc Drug Dose 131.3 ml/min Estimated GFR () 129.0 Estimated GFR (Non- 111.3 BUN/Creatinine Ratio 13.3 Random Glucose 86 mg/dl Calcium Level 8.4 mg/dl Mental Examination During interview pt is: alert and oriented, cooperative Appearance: appropriately dressed, appropriately groomed Eye contact is: fair Motor behavior is: no abnormal motor movements Speech: normal in rate, rhythm & volume Affect: mood congruent Mood is: irritable Thought process: clear, coherent Thought content: reality based without delusions Suicidal thought are: denied, Plan: denied, Intent: denied Homicidal thoughts are: denied, Plan: denied, Intent: denied Hallucinations: denies auditory, denies visual Cognition: memory grossly intact, attention grossly intact Intelligence estimated to be: consistent with level of education Insight: limited Judgement: limited Impression / Recommendations Impression 42 year old Male who is incarcerated at [facility] with a history of Seizure Disorder and unspecified Schizophrenia Spectrum Disorder and ADHD admitted to [facility] via the ED on 12/01/17 after transfer from [facility] with elevated Dilantin levels and recently voiced complaints to [facility] medical staff of an unwitnessed syncopal episode, generalized weakness and fatigue. The patients last seizure was in 2016. Due to his elevated Dilantin levels the patient was admitted for monitoring of his symptoms. The Dilantin was held until levels normalize. The patient expressed irritability at recently being placed on Haldol for AH but after discussion with [facility] AOC DIRECTOR INTELLIGENCE OFFICER nurse the patient apparently did voice acute onset of AH a few days before experiencing his physical complaints. It is unclear if the Dilantin Toxicity played a part in the onset of AH. Inventory Assets Strengths: kids Needs: [place] Risk Factors Assessment Male: Yes : No /single/: Yes Higher / Fall in social status: Yes Access to guns: No Health problems: Yes Mental Health Diagnoses: Yes Substance use disorders: No Previous attempt: No Previous psychiatric stay: No Hopelessness: No Smoker: No Protective Factors Assessment : No Responsible for young children: Yes Employed: Yes Stable relationships: No Supportive family: No Good rapport with provider: No Recommendations (1) Schizophrenia spectrum disorder with psychotic disorder type not yet determined The patient appears to be stable psychiatrically at this time. The AH that he recently experienced are no longer being voiced. To continue his psychiatric care at [facility] where he is housed. Defer psychotropic medication issues back to his psychiatric provider at [facility] as we do not have background information. He currently is not in need of psychiatric medication adjustment as he is voicing no concerns.
--- NOTE | 2017-12-03 15:09 | Family Medicine Progress Note ---
Progress Note Date of Service Dec 03, 2017. Subjective Pt evaluation today including: conversation w/ patient, physical exam, chart review, lab review Pain: denies any pain this AM PO Intake: tolerating Voiding: no voiding problems This AM pt reports feeling "ok" when in bed but when moves around or walks feels "off balance". Kyle off balance after showering yesterday. Appetite has improved. Denies any seizures. Otherwise asymptomatic Constitutional: No fever Respiratory: No shortness of breath Cardiovascular: No chest pain Abdomen: No pain, No nausea, No vomiting Male : No dysuria Neurologic: + balance problems Medications Current Inpatient Medications Medications (Trade) Dose Ordered Sig/Dawson Route Start Time Stop Time Status Last Admin Dose Admin Heparin Sodium (Porcine) (Heparin Sq 5000 Unit/0.5ml) 5,000 unit Q12 SQ 12/02/17 09:00 01/01/18 08:59 12/03/17 08:30 5,000 UNIT Al Hydrox/Mg Hydrox/Simethicone (Maalox Max Susp) 15 ml Q4H PRN PO 12/02/17 01:45 01/01/18 01:44 Magnesium Hydroxide (Milk Of Magnesia Susp) 30 ml Q12H PRN PO 12/02/17 01:45 01/01/18 01:44 Ondansetron HCl (Zofran Inj) 4 mg Q6H PRN IV 12/02/17 01:45 01/01/18 01:44 Polyethylene (Miralax Powder Packet) 17 gm DAILY PRN PO 12/02/17 01:45 01/01/18 01:44 Miscellaneous (Iv Fluids Completed) 1 ea PRN PRN N/A 12/02/17 04:30 12/02/18 04:29 Sodium Chloride 1,000 ml @ 75 mls/hr [id number] IV 12/02/17 17:45 01/01/18 17:44 12/03/17 06:18 75 MLS/HR Divalproex Sodium (Depakote Delay Rel Tab) 500 mg TID PO 12/03/17 21:00 01/01/18 08:59 UNV Objective Vital Signs Date Time Temp Pulse Resp B/P (MAP) Pulse Ox O2 Delivery O2 Flow Rate FiO2 12/03/17 12:00 98 Room Air 12/03/17 11:36 36.9 85 18 148/88 (108) 98 12/03/17 08:00 95 Room Air 12/03/17 07:19 36.9 69 18 142/82 (102) 95 12/03/17 04:00 36.7 76 18 134/88 (103) 97 Room Air 12/03/17 04:00 Room Air 12/03/17 00:00 Room Air 12/03/17 00:00 36.5 81 18 153/96 (115) 94 Room Air 12/02/17 20:13 36.9 89 20 140/79 (99) 99 Room Air 12/02/17 20:00 96 Room Air 12/02/17 16:00 96 Room Air Physical Exam General Appearance: no apparent distress Eyes: normal inspection Respiratory/Chest: lungs clear, normal breath sounds Cardiovascular: regular rate, rhythm, no edema Abdomen: normal bowel sounds, non tender, soft Extremities: non-tender, no pedal edema Neurologic/Psychiatric: alert, oriented x 3 Skin: warm/dry Laboratory Results Last Resulted 12/03/17 05:25 Red Blood Count 4.95, Mean Corpuscular Volume 84.4, Mean Corpuscular Hemoglobin 31.1, Mean Corpuscular Hemoglobin Concent 36.8, Mean Platelet Volume 9.4, Neutrophils (%) (Auto) 57.5, Lymphocytes (%) (Auto) 25.3, Monocytes (%) (Auto) 14.2, Eosinophils (%) (Auto) 2.8, Basophils (%) (Auto) 0.1, Neutrophils # (Auto ) 3.84, Lymphocytes # (Auto) 1.69, Monocytes # (Auto) 0.95, Eosinophils # (Auto ) 0.19, Basophils # (Auto) 0.01 Last Resulted 12/03/17 05:25 Assessment and Plan 42 yo male admitted for ataxia, visual disturbances likely in the setting of supratherapeutic Dilantin level. PMH: Seizures, hemorrhoids, ? unspecified schizophrenia spectrum Dilantin toxicity: improved visual disturbance/MS, continues to have ataxia - This AM Dilantin level 38.3 - Continue monitoring Dilantin level BID Seizure disorder: No new seizure activity - Last seizure was in May 2016. - Neurology consulted: please refer to note - Increased Depakote to 500mg TID - check CBC and CMP [id number] for drug toxicity - DC keppra and Dilantin permanently Unspecified schizophrenia: - Holding Haldol started at [facility] - Psych consulted: concern for acute AH few days ago - stale at this point Code status: Full code Diet: Regular DVT prophy: Heparin q12h PT/OT: Deferred Disbo: Admit to med/surg. Resident at [facility] Resident Physician Supervision Note: I was present with Dr. Escalera during the history and exam. I discussed the case with the resident and agree with the findings and plan as documented in the note. Dilantin levels continue to decrease, although still supra therapeutic. Appreciate neurology and psychiatry consultations. PLAN 1) Discontinue Keppra, and continue Depakote as mono therapy. 2) Will not restart Haldol. His symptoms for which the Haldol was recently added may have been attributable to Dilantin toxicity. 3) Trend Dilantin levels; could change to daily tomorrow. Documented By: Juan Bustamante Resident Involvement: Resident Care Provided Care Provided: Adult Hospital Medicine
[2017-12-04] VITALS (7 sets, daily range): BP systolic 145–172; BP diastolic 84–116; PULSE 69–84; TEMP 36.7–37; O2SAT 95–98
[2017-12-04] MEDS: DIVALPROEX SODIUM 500 MG DELAY RELEASE TAB PO SCH ×3 (08:18→21:10)
[2017-12-04] MEDS: HEPARIN SOD 5000 UNIT/0.5 ML CARP SQ SCH ×2 (08:19→21:00)
[2017-12-04] MEDS: SODIUM CHLORIDE 0.9% 1000ML 1,000 ML IV SCH (08:21)
--- NOTE | 2017-12-04 13:12 | Family Medicine Progress Note ---
Progress Note Date of Service Dec 04, 2017. Subjective Pt evaluation today including: conversation w/ patient, physical exam, chart review, lab review Pain: denies any discomfort PO Intake: tolerating Voiding: no voiding problems This AM pt reports persistent ataxia. Also reports diarrhea x 2. Otherwise asymptomatic Concern for elevated BP on vitals persistently: pt reports chronically elevated BP and family hx of HTN. Not taken any medications. Constitutional: No fever, No chills Respiratory: No shortness of breath Cardiovascular: No chest pain Abdomen: + diarrhea, No pain, No nausea, No vomiting Male : No dysuria Medications Current Inpatient Medications Medications (Trade) Dose Ordered Sig/Dawson Route Start Time Stop Time Status Last Admin Dose Admin Heparin Sodium (Porcine) (Heparin Sq 5000 Unit/0.5ml) 5,000 unit Q12 SQ 12/02/17 09:00 01/01/18 08:59 12/03/17 08:30 5,000 UNIT Al Hydrox/Mg Hydrox/Simethicone (Maalox Max Susp) 15 ml Q4H PRN PO 12/02/17 01:45 01/01/18 01:44 Magnesium Hydroxide (Milk Of Magnesia Susp) 30 ml Q12H PRN PO 12/02/17 01:45 01/01/18 01:44 Ondansetron HCl (Zofran Inj) 4 mg Q6H PRN IV 12/02/17 01:45 01/01/18 01:44 Polyethylene (Miralax Powder Packet) 17 gm DAILY PRN PO 12/02/17 01:45 01/01/18 01:44 Miscellaneous (Iv Fluids Completed) 1 ea PRN PRN N/A 12/02/17 04:30 12/02/18 04:29 Divalproex Sodium (Depakote Delay Rel Tab) 500 mg TID PO 12/03/17 16:00 01/01/18 15:59 12/04/17 08:18 500 MG Objective Vital Signs Date Time Temp Pulse Resp B/P (MAP) Pulse Ox O2 Delivery O2 Flow Rate FiO2 12/04/17 12:00 Room Air 12/04/17 11:41 37.0 76 18 159/84 (109) 98 12/04/17 08:00 Room Air 12/04/17 07:09 37.0 69 18 159/98 (118) 95 12/04/17 04:09 36.9 70 18 145/87 (106) 97 Room Air 12/04/17 04:00 Room Air 12/04/17 00:00 Room Air 12/03/17 22:43 36.8 71 18 156/93 (114) 96 12/03/17 20:00 96 Room Air 12/03/17 18:40 37.1 79 18 151/87 (108) 97 12/03/17 16:00 96 Room Air 12/03/17 15:28 37.0 76 18 157/81 (106) 96 Room Air Physical Exam General Appearance: no apparent distress Eyes: normal inspection Respiratory/Chest: lungs clear, normal breath sounds Cardiovascular: regular rate, rhythm Abdomen: normal bowel sounds, soft, + tenderness (mild eric-umbilical TTP) Extremities: non-tender, no pedal edema Neurologic/Psychiatric: alert, oriented x 3 Skin: warm/dry Laboratory Results Test 12/04/17 05:13 Phenytoin (Dilantin) Level 28.6 mcg/mL (10-20) Assessment and Plan 42 yo male admitted for ataxia, visual disturbances likely in the setting of supratherapeutic Dilantin level. Continues to have some ataxia. Dilantin levels downtrending: this AM 28. PMH: Seizures, hemorrhoids, unspecified schizophrenia spectrum disorder Dilantin toxicity: improved visual disturbance/MS, continues to have some ataxia - This AM Dilantin level 28 - Continue monitoring Dilantin level - daily until normalizes Seizure disorder: No new seizure activity - Last seizure was in May 2016. - Neurology consulted: please refer to note - Increased Depakote to 500mg TID - check CBC and CMP [id number] for drug toxicity - Dced keppra and Dilantin permanently Unspecified schizophrenia: - Holding Haldol started at [facility] - Psych consulted: concern for acute AH few days ago - stale at this point Elevated BP during admission: likely acute on chronic - elevated SBP 130-150s and DBP 80-90s - defer treatment given acute illness - recommend PCP follow up after discharge for improved management Diarrhea: - monitor - consider C. diff testing if persists/worsens Code status: Full code Diet: Regular DVT prophy: Heparin q12h PT/OT: ordered Disbo: Admit to med/surg. Resident at [facility] Resident Physician Supervision Note: I was present with Dr. Escalera during the history and exam. I discussed the case with the resident and agree with the findings and plan as documented in the note. Any exceptions or clarifications are listed here: Overall, patient is improving in terms of his symptoms, correlating with declining Dilantin levels. Still with some ataxia, but the visual disturbances have resolved. PRIMARY IMPRESSION: 1) supra therapeutic Dilantin level, improving PLAN 1) Monotherapy with Depakote (Keppra and Dilantin discontinued). 2) Discontinued Haldol - I would not restart upon discharge unless he has symptoms not attributable to a supra therapeutic Dilantin level. 3) Monitor blood pressure. He has a noted family history and the patient notes that there may be a "white-coat" component. 4) Discontinue IVFs. Documented By: Juan Bustamante Resident Involvement: Resident Care Provided Care Provided: Adult Hospital Medicine
[2017-12-05] VITALS (8 sets, daily range): BP systolic 142–190; BP diastolic 80–98; PULSE 66–79; TEMP 36.9–37; O2SAT 94–98
--- NOTE | 2017-12-05 08:36 | Family Medicine Progress Note ---
Progress Note Date of Service Dec 04, 2017. Medications Current Inpatient Medications Medications (Trade) Dose Ordered Sig/Dawson Route Start Time Stop Time Status Last Admin Dose Admin Heparin Sodium (Porcine) (Heparin Sq 5000 Unit/0.5ml) 5,000 unit Q12 SQ 12/02/17 09:00 01/01/18 08:59 12/03/17 08:30 5,000 UNIT Al Hydrox/Mg Hydrox/Simethicone (Maalox Max Susp) 15 ml Q4H PRN PO 12/02/17 01:45 01/01/18 01:44 Magnesium Hydroxide (Milk Of Magnesia Susp) 30 ml Q12H PRN PO 12/02/17 01:45 01/01/18 01:44 Ondansetron HCl (Zofran Inj) 4 mg Q6H PRN IV 12/02/17 01:45 01/01/18 01:44 Polyethylene (Miralax Powder Packet) 17 gm DAILY PRN PO 12/02/17 01:45 01/01/18 01:44 Miscellaneous (Iv Fluids Completed) 1 ea PRN PRN N/A 12/02/17 04:30 12/02/18 04:29 Divalproex Sodium (Depakote Delay Rel Tab) 500 mg TID PO 12/03/17 16:00 01/01/18 15:59 12/04/17 21:10 500 MG Objective Vital Signs Date Time Temp Pulse Resp B/P (MAP) Pulse Ox O2 Delivery O2 Flow Rate FiO2 12/05/17 07:11 37.0 72 16 150/83 (105) 95 12/05/17 04:42 36.9 66 18 142/91 (108) 98 Room Air 12/05/17 04:00 Room Air 12/05/17 03:00 160/80 (106) 12/05/17 01:00 165/98 (120) 12/05/17 00:00 Room Air 12/04/17 23:18 165/105 (125) Room Air 12/04/17 22:42 36.7 74 18 172/116 (134) 96 Room Air 12/04/17 20:00 Room Air 12/04/17 19:23 36.9 84 18 152/96 (114) 98 Room Air 12/04/17 16:00 Room Air 12/04/17 15:11 36.8 76 18 159/97 (117) 97 12/04/17 12:00 Room Air 12/04/17 11:41 37.0 76 18 159/84 (109) 98 Laboratory Results Test 12/05/17 05:32 Phenytoin (Dilantin) Level 29.3 mcg/mL (10-20) Resident Tracking Resident Involvement: Resident Care Provided Care Provided: Adult Hospital Medicine (inpatient)
--- NOTE | 2017-12-05 08:38 | Family Medicine Progress Note ---
Progress Note Date of Service Dec 05, 2017. Medications Current Inpatient Medications Medications (Trade) Dose Ordered Sig/Dawson Route Start Time Stop Time Status Last Admin Dose Admin Heparin Sodium (Porcine) (Heparin Sq 5000 Unit/0.5ml) 5,000 unit Q12 SQ 12/02/17 09:00 01/01/18 08:59 12/03/17 08:30 5,000 UNIT Al Hydrox/Mg Hydrox/Simethicone (Maalox Max Susp) 15 ml Q4H PRN PO 12/02/17 01:45 01/01/18 01:44 Magnesium Hydroxide (Milk Of Magnesia Susp) 30 ml Q12H PRN PO 12/02/17 01:45 01/01/18 01:44 Ondansetron HCl (Zofran Inj) 4 mg Q6H PRN IV 12/02/17 01:45 01/01/18 01:44 Polyethylene (Miralax Powder Packet) 17 gm DAILY PRN PO 12/02/17 01:45 01/01/18 01:44 Miscellaneous (Iv Fluids Completed) 1 ea PRN PRN N/A 12/02/17 04:30 12/02/18 04:29 Divalproex Sodium (Depakote Delay Rel Tab) 500 mg TID PO 12/03/17 16:00 01/01/18 15:59 12/04/17 21:10 500 MG Objective Vital Signs Date Time Temp Pulse Resp B/P (MAP) Pulse Ox O2 Delivery O2 Flow Rate FiO2 12/05/17 07:11 37.0 72 16 150/83 (105) 95 12/05/17 04:42 36.9 66 18 142/91 (108) 98 Room Air 12/05/17 04:00 Room Air 12/05/17 03:00 160/80 (106) 12/05/17 01:00 165/98 (120) 12/05/17 00:00 Room Air 12/04/17 23:18 165/105 (125) Room Air 12/04/17 22:42 36.7 74 18 172/116 (134) 96 Room Air 12/04/17 20:00 Room Air 12/04/17 19:23 36.9 84 18 152/96 (114) 98 Room Air 12/04/17 16:00 Room Air 12/04/17 15:11 36.8 76 18 159/97 (117) 97 12/04/17 12:00 Room Air 12/04/17 11:41 37.0 76 18 159/84 (109) 98 Laboratory Results Test 12/05/17 05:32 Phenytoin (Dilantin) Level 29.3 mcg/mL (10-20) Assessment and Plan IN PROGRESS 42 yo male admitted on [id number] for ataxia, visual disturbances, and supratherapeutic Dilantin level. PMH: Seizures, hemorrhoids, ? unspecified schizophrenia spectrum Dilantin toxicity: Reported initial symptoms of ataxia and visual disturbances ( black spots). Dilantin level 43. Serial measurements ongoing. Treatment is supportive. Seizure disorder: Per [facility] medical records was on keppra, depakote, and dilantin. Patient says last seizure was in May 2016. Seen by neurology here, recommended to permanently discontinue the Dilantin and Keppra. Recommended optimizing Depakote. See their note. - Recommended Depakote goal of 500 mg TID. Also ongoing lab recommendations. Unspecified schizophrenia spectrum disorder: Per provided [facility] medical reconciliation, started on Haldol 2 mg daily about a week prior to admission. Patient expressed concerns about this medication, so a psychiatry consult was ordered here (see their full note). They recommended to defer back to his [facility] psychiatric provider. - Holding Haldol as inpatient here until discharge. Code status: Full code Diet: Regular DVT prophy: Heparin q12h PT/OT: Deferred. Disbo: Admit to med/surg. Resident at [facility]. Resident Tracking Resident Involvement: Resident Care Provided Care Provided: Adult Hospital Medicine (inpatient)
[2017-12-05] MEDS: DIVALPROEX SODIUM 500 MG DELAY RELEASE TAB PO SCH ×2 (08:52→13:42)
[2017-12-05] MEDS: HEPARIN SOD 5000 UNIT/0.5 ML CARP SQ SCH (08:53)
[2017-12-05] MEDS ORDERED: DPKEC500 PO (10:25)
--- NOTE | 2017-12-05 10:28 | Discharge Instructions ---
Discharge Instructions Date of Service Dec 05, 2017. Admission Reason for Admission: Elevated Phenytoin Level Discharge Discharge Diagnosis / Problem: Elevated phenytoin (dilantin) level Discharge Goals Goal(s): Improve disease control, Learn about illness Activity Recommendations Activity Limitations: resume your previous activity . Instructions / Follow-Up Instructions / Follow-Up You were admitted to the hospital for monitoring of your elevated phenytoin ( also called dilantin) level. - Please continue to follow up with the [facility] medical staff to make sure your seizure medication is properly monitored. - Here you were taken off of the haldol medication. You can discuss with them if you still need it based on your symptoms going forward. - Your blood pressure here was quite elevated at times. You may benefit from starting a medication that would keep it under control. Please talk with the [facility] medical staff about such an evaluation. - Please seek emergency medical care if you develop any new chest pains, difficulty breathing, severe headache, a return of your worsening vision or difficulty walking, or with any other emergent concerns. Current Hospital Diet Patient's current hospital diet: Regular Diet Discharge Diet Recommended Diet: Regular Diet Pending Studies Studies pending at discharge: no Medical Emergencies . Who to Call and When: Medical Emergencies: If at any time you feel your situation is an emergency, please call 911 immediately. . Non-Emergent Contact Non-Emergency issues call your: Primary Care Provider .
--- NOTE | 2017-12-05 10:33 | Discharge Summary ---
Discharge Summary Date of Service Dec 05, 2017. Discharge Summary Admission Date: Dec 02, 2017 at 01:47 Discharge Date: Dec 05, 2017 Discharge Disposition: Home (([facility] long-term)) Principal Diagnosis: Elevated dilantin level Problems/Secondary Diagnoses: - Seizure disorder - Unspecified schizophrenia spectrum disorder - Hypertension Consultations: 03Dec2017 - Neurology Consultation a/p Impression - This is a 42-year-old male who presented with Dilantin toxicity. More than likely any recent increase in Depakote could have raised his Dilantin level. Coadministration of Depakote and Dilantin tends to decrease Depakote level and increase Dilantin level. Overall it is not clear to me why the patient is on 3 seizure medications when neither of them are at maximal effective dose, and the patient is likely experiencing polypharmacy from these medications. - Patient's history of epilepsy is not well-established at this time and it is unclear to me if he has ever had a complete workup such as an MRI of the brain and EEG. Plan - Overall Dilantin is probably not the best medication for the patient to be on long-term due to adverse long-term side effects. In addition Keppra is probably not the best medication for the patient to be on due to risk of worsening mood and psychiatric symptoms. Trying to optimize Depakote would probably be the best option for the patient. - Recommend permanently discontinuing phenytoin and Keppra. Patient has been on higher doses of Depakote in the past. When the patient is no longer toxic from Dilantin, would consider increasing Depakote back up to 500 mg 3 times daily (which the patient reports he has been on in the past without any side effects). - Patient will need CBC and complete metabolic panel every 6 months while on Depakote to monitor for drug toxicity. Depakote dosing does not necessarily need to be increased if the patient is not having clinical seizures ( even if levels are low) - If there is concern for additional clinical seizure in the future the patient will probably benefit from a neurology outpatient workup to try to classify and establish what type of seizures he has. 03Dec2017 - Psychiatry Consultation a/p Impression: - 42 year old Male who is incarcerated at [facility] with a history of Seizure Disorder and unspecified Schizophrenia Spectrum Disorder and ADHD admitted to [facility] via the ED on 12/01/17 after transfer from [facility] with elevated Dilantin levels and recently voiced complaints to [facility] medical staff of an unwitnessed syncopal episode, generalized weakness and fatigue. The patients last seizure was in 2016. - Due to his elevated Dilantin levels the patient was admitted for monitoring of his symptoms. The Dilantin was held until levels normalize. The patient expressed irritability at recently being placed on Haldol for AH but after discussion with [facility] [employer] nurse the patient apparently did voice acute onset of AH a few days before experiencing his physical complaints. It is unclear if the Dilantin Toxicity played a part in the onset of AH. Recommendations: (1) Schizophrenia spectrum disorder with psychotic disorder type not yet determined - The patient appears to be stable psychiatrically at this time. - The AH that he recently experienced are no longer being voiced. - To continue his psychiatric care at [facility] where he is housed. - Defer psychotropic medication issues back to his psychiatric provider at [facility] as we do not have background information. He currently is not in need of psychiatric medication adjustment as he is voicing no concerns. Medication Reconciliation New Medications: Divalproex Sodium (Divalproex Sodium Dr) 500 Mg Tabec 500 MG PO TID for 30 Days, #90 UNIT 0 Refills Hydrochlorothiazide (Hydrochlorothiazide) 25 Mg Tab 25 MG PO QAM for 30 Days, #30 TAB 0 Refills Continued Medications: Calcium Polycarbophil (Fiber Laxative) 625 Mg Tab Discontinued Medications: Divalproex Sodium (Depakote) 500 Mg Tab 1 TAB PO BID for 30 Days, #60 TAB 1 Refill Haloperidol (Haloperidol) 2 Mg Tab 1 TAB PO HS for 30 Days, #30 TAB Levetiracetam (Keppra) 250 Mg Tab 250 MG PO BID, TAB Phenytoin Sodium (Dilantin) 100 Mg Cap 1 CAP PO TID for 30 Days, #90 CAP 3 Refills Discharge Exam General Appearance: Awake, alert & oriented, conversing clearly and comfortably in general, NAD. CV: +S1S2 RRR, no murmur. No peripheral edema. Pulm: Clear to auscultation throughout. Abdomen: +BS, soft, non-tender, non-distended. Extremities/Chest: No pedal edema or calf tenderness. Moving all extremities naturally and easily. There is a focal, approx 1-2 inch area along the left lower sternal border that is reproducibly tender to palpation. No overlying erythema, edema, or other break in the skin. Surrounding area is non-tender to palpation. Neuro: Awake, alert x 3, in NAD. Says his vision is a little blurry. Denies any difficulty/weakness or numbness/tingling with extremity movements. [ Patient has related restraints present due to being under guard.] Has previously been witnessed to walk without assistance and without any ataxia. Psych: Speaks clearly, logically, calmly without any present overt evidence of visual or auditory hallucinations. Review of Systems: Constitutional: No fever, No chills Eyes: + problem reported (mild blurry vision bilaterally) Respiratory: No cough, No shortness of breath Cardiovascular: No edema Abdomen: No pain, No nausea, No vomiting, No diarrhea Musculoskeletal: No swelling Neurologic: No paralysis, No weakness, No numbness/tingling Hospital Course HPI at time of admission on Dec 02, 2017 at 01:15 42M with a PMHx of seizure disorder p/w a one week history of intermittent lightheadedness that has been worsening. Pt reports seeing black spots and feeling lightheaded only when he stands. Chart from long-term reviewed, patient reported feeling weak and tired. Pt was sent over for Dilantin level of 38. EKG form [facility] also reviewed and was WNL. In the ED his Phenytoin level was 43.8 and on recheck was 43.8. After consulting poison control IVF and Q6H Phynytoin level checks were recommended. Patient denies any other systemic complaints. He is upset at the long-term for letting his Dilantin level go so high. Pt reports taking Haldol in the AM and states he doesn't take Keppra anymore. However [facility] records show that he is getting Keppra regularly. Discharge summary on 05Dec2017 42 yo male admitted on 02Dec2017 for ataxia, visual disturbances, and supratherapeutic Dilantin level. Transfer from [facility]. PMH: Seizures, hemorrhoids, ? unspecified schizophrenia spectrum Dilantin toxicity: Reported initial symptoms of ataxia and visual disturbances ( black spots). Max dilantin level 43, down to 29.3 at time of discharge. Therapeutic would be < 20. Provided IVF here. Symptomatically was improving but still said his vision was not 100% back to normal. - Recommend continued monitoring to insure returns to zero. - Please see "seizure disorder below". Seizure disorder: Per [facility] medical records was on keppra, depakote, and dilantin. Patient says last seizure was in May 2016. Seen by neurology here, recommended to permanently discontinue the Dilantin and Keppra. Recommended optimizing Depakote to 500 mg TID. Started on same here. - Please see their recommendations, including follow-on lab monitoring. Unspecified schizophrenia spectrum disorder: Per provided [facility] medical reconciliation, started on Haldol 2 mg daily about a week prior to admission. Patient expressed concerns about this medication, so a psychiatry consult was ordered here (see their full note). They recommended to defer back to his [facility] psychiatric provider. - Holding Haldol as inpatient here until discharge. Hypertension: BP noted as high as 191/111. Was not initially started on any medication due to polypharmacy effects. However, on morning of discharge, patient complained of very focal left parasternal, reproducible chest discomfort starting early this morning. No SOB. An EKG was NSR and TnI was negative. He appeared very comfortable throughout this time. Patient was given a single dose of HCTZ 25 mg PO as a starter antihypertensive. - Would benefit from further evaluation, close monitoring, and consideration of continuing an antihypertensive (e.g. HCTZ) in the near-term. Resident Physician Supervision Note: I interviewed and examined the patient. Discussed with Dr. Hearn and agree with findings and plan as documented in the note. Any exceptions or clarifications are listed here: None Documented By: Zuhair Sheikh feeling better excited to get out of hospital, had brief CP no concerning EKG findings d/w pt dilantin levels still up some but improving overall and more importantly he is symptomatically improved vitals noted nad breathing unlabored no pallor or icterus dilantin toxicity - stop med, manage seizures as above chest pain - no concerning findings otherwise as above stable for return to [facility] Total Time Spent: Greater than 30 minutes This includes examination of the patient, discharge planning, medication reconciliation, and communication with other providers. Discharge Instructions Please refer to the electronic Patient Visit Report (Discharge Instructions) for additional information. Additional Copies To [facility] [place] Resident Tracking Resident Involvement: Resident Care Provided Care Provided: Adult Hospital Medicine (inpatient)
[2017-12-05] MEDS ORDERED: HYDROCHLOROTHIAZIDE 25 MG TAB PO ONE (11:15)
[2017-12-05] MEDS ORDERED: HYDR25TA5 PO (11:59)
[2017-12-06] MEDS ORDERED: HYDROCHLOROTHIAZIDE 25 MG TAB PO SCH (09:00)
== END 2017-12-05 14:20 ==
LOC: C.EDB 20:31 → C.MED 12-02 01:47 → EDBEDREQ 12-02 01:52 → ENRESERV 12-02 02:02
PROVIDERS: ADMIT Internal Medicine; ATTEND Family Medicine
DX: R89.2 Abnormal level of other drugs, medicaments and biological substances in specimens from other organs, systems and tissues (principal); G40.909 Epilepsy, unspecified, not intractable, without status epilepticus; F29 Unspecified psychosis not due to a substance or known physiological condition; I10 Essential (primary) hypertension; Z79.899 Other long term (current) drug therapy; Z88.6 Allergy status to analgesic agent; Z88.8 Allergy status to other drugs, medicaments and biological substances; Z82.0 Family history of epilepsy and other diseases of the nervous system

== ENCOUNTER 2023-09-13 14:42 | Inpatient (IN) ==
[2023-09-13] MEDS ORDERED: OPTIRAY 320 125ml IV ONE (14:52)
--- NOTE | 2023-09-13 14:57 | Emergency Department Note ---
Impression & Plan Acute CVA (cerebrovascular accident), Left-sided weakness ED Provider Note NAME: SENA [id number] ARLEN AGE: 48 SEX: M : 1975 ARRIVES VIA: Ambulance INFORMANT: Patient ED PROVIDER(S): Zuhair Powers DO CHIEF COMPLAINT: left sided weakness and Headache HPI: Patient is a 48-year-old male with a past medical history of seizures and schizophrenia who presents to the ER for headache and left-sided numbness as well as weakness which started around 1245 today. He denies any change in vision. No chest pain or shortness of breath. No nausea, vomiting, or diarrhea. No dysuria, urgency, or frequency. No other exacerbating remitting factors. ADDITIONAL HISTORY OBTAINED: Per HPI Chronic Medical/Social Conditions Affecting Care: Per HPI PAST MEDICAL HISTORY:See Below PAST SURGICAL HISTORY:See Below FAMILY HISTORY:See Below SOCIAL HISTORY:See Below HOME MEDICATIONS:See Below ALLERGIES:See Below VITALS:See Below PHYSICAL EXAMINATION: GENERAL: Sitting up in bed, alert, well appearing, well nourished, no distress, non-toxic EYE EXAM: normal conjunctiva. PERRL and EOM's grossly intact. OROPHARYNX: no exudate, no erythema, lips, buccal mucosa, and tongue normal and mucous membranes are moist NECK: supple, no nuchal rigidity, no adenopathy, non-tender LUNGS: Clear to auscultation. Normal chest wall mechanics HEART: no murmurs, S1 normal and S2 normal ABDOMEN: abdomen soft, non-tender, normo-active bowel sounds, no masses, no rebound or guarding. UPPER EXTREMITIES: upper extremities are grossly normal. LOWER EXTREMITIES: No pitting edema. NEURO EXAM: Normal sensorium, cranial nerves II-XII intact, normal speech, weakness with grafts as well as subtle weakness in flexion extension left upper extremity in comparison to the right. No drift. Subtle weakness with flexion of the left hip in comparison to the right. Gross sensation intact. MEDICAL DECISION MAKING: Patient is a 48-year-old male who presents ER for above-stated complaint. IV was established blood work is obtained. Probably patient was brought in by [facility] and no stroke alert was called as they did not report any weakness on their exam. Upon my initial evaluation which was 14 minutes into patient being presented into the ER I noticed the left-sided weakness. Stroke alert was called. He was taken emergently to CT. I spoke with Sarah telestroke neurology. They evaluate the patient. Patient was unsure with his deficit as he had subtle left arm and left leg weakness if he wanted to proceed with TNK. I had several conversations with him and he got up to go to the bathroom as he wanted to wait and think about it for some time. Following this we gave several doses of labetalol. He was placed on a Cardene drip as his blood pressures were in the 240s and then trended down to less than 180/110. TNK was her offered by her she telestroke neurology. He eventually after multiple conversations requested TNK. This was then given. Patient was monitored closely while in the ER. He was admitted to the hospitalist as I discussed with them as well. I did discuss the risk and benefits of TNK with this gentleman on multiple occasions and care was delayed due to indecisiveness for the patient.. Consults/Care Managements Discussions: Per [facility] Triage Nursing notes reviewed. Limited review of prior medical records performed Vital Signs: reviewed and remarkable for HTN Differential diagnosis: Differential Diagnosis includes but is not limited to ischemic Stroke, hemorrhagic stroke, bells palsy, mass, neoplasm, migraine headache, seizure, subarachnoid hemorrhage, TIA, and transient global amnesia. ER treatment provided: See below Diagnostics interpreted by me include EKG and cardiac monitoring as listed below: -Cardiac Monitoring: An order was placed for continuous cardiac monitoring. The monitor shows a rate of 80 with sinus rhythm. -ECG: Sinus rhythm rate 78 Right axis No PVCs QTc 426 -Laboratory studies:Interpreted by me as stated above in MDM and shown below. Imaging studies: Xrays: As interpreted by me: Portable AP upright 1 view of the chest shows no focal infiltrate CTs show: CT angios of the head and neck were negative per radiology Procedures:none Critical Care:I have personally spent 75 minutes of critical care time in the direct management of this patient. This includes bedside care, interpretation of diagnostic studies, and testing, discussion with consultants, patient, and family members, and other required patient management activities. This 75 minutes is in excess of all separately billable procedures. Past Med/Surg History Social History Smoking Status: Former smoker Hx Alcohol Use: No Hx Substance Use: No Preferred Language: Yemeni Communication Ability: Effective Assembler Ping Pong Table Required: No Beliefs That Will Affect Care: None Current Living Situation: Other Current Living Situation Comment: Noman Feels Safe at Home: Yes and Hesitant to Answer Allergies Allergies Allergy/AdvReac Type Severity Reaction Status Date / Time acetaminophen Allergy Unknown ON SCI Verified 09/13/23 15:09 [facility] MED LIST aspirin Allergy Unknown ON SCI Verified 09/13/23 15:10 [From Excedrin Migraine] [facility] MED LIST caffeine Allergy Unknown ON SCI Verified 09/13/23 15:10 [From Excedrin Migraine] [facility] MED LIST chlorpromazine Allergy Unknown ON SCI Verified 09/13/23 15:09 [facility] MED LIST Home Meds Home Medications Medication Instructions Recorded Confirmed amlodipine 5 mg tablet 5 mg PO DAILY 09/13/23 09/13/23 aripiprazole 2 mg tablet (Abilify) 2 mg PO DAILY 09/13/23 09/13/23 aripiprazole 5 mg tablet (Abilify) 5 mg PO DAILY 09/13/23 09/13/23 diphenhydramine HCl 50 mg capsule 50 mg PO BID 09/13/23 09/13/23 divalproex 250 mg tablet,delayed 1,000 mg PO BID 09/13/23 09/13/23 release (Depakote) metoprolol tartrate 50 mg tablet 50 mg PO BID 09/13/23 09/13/23 Results & Data (ED) Vital Signs Vital Signs - 24 hr 09/13/23 14:50 09/13/23 14:54 09/13/23 15:18 Temperature 37.3 C Temperature Source Oral Pulse Rate 98 H 81 81 Pulse Rate [Finger] Pulse Rate from SpO2 Sensor Respiratory Rate 20 Respiratory Effort / Characteristics Non-Labored Spontaneous Respiratory Depth Normal Blood Pressure 248/71 H 200/124 H Blood Pressure [Left Arm] Blood Pressure Mean 130 Blood Pressure Mean [Left Arm] Pulse Oximetry 96 Oxygen Delivery Method Room Air Sepsis New/Unexplained Change in Mental Status N/A Sepsis Action Taken by Nursing No Action Required 09/13/23 15:36 09/13/23 15:55 09/13/23 16:10 Temperature Temperature Source Pulse Rate 97 H Pulse Rate [Finger] 72 82 Pulse Rate from SpO2 Sensor Respiratory Rate 18 18 Respiratory Effort / Characteristics Respiratory Depth Blood Pressure 205/134 H Blood Pressure [Left Arm] 179/103 H 158/98 H Blood Pressure Mean Blood Pressure Mean [Left Arm] 128 118 Pulse Oximetry 96 92 Oxygen Delivery Method Room Air Room Air Sepsis New/Unexplained Change in Mental Status Sepsis Action Taken by Nursing 09/13/23 16:10 09/13/23 16:14 09/13/23 16:14 Temperature Temperature Source Pulse Rate 81 82 Pulse Rate [Finger] Pulse Rate from SpO2 Sensor 83 81 Respiratory Rate 21 17 Respiratory Effort / Characteristics Respiratory Depth Blood Pressure 173/89 H Blood Pressure [Left Arm] Blood Pressure Mean 104 Blood Pressure Mean [Left Arm] Pulse Oximetry 94 93 Oxygen Delivery Method Sepsis New/Unexplained Change in Mental Status Sepsis Action Taken by Nursing Laboratory Data 09/13/23 13:52 09/13/23 13:52 Lab Results 09/13/23 09/13/23 Range/Units 13:52 14:55 WBC 6.24 (4.8-10.8) K/ul RBC 5.73 (4.70-6.10) M/uL Hgb 17.0 (14.0-18.0) g/dl POC Hgb 17.3 (14.0-18.0) g/dl Hct 47.4 (42.0-52.0) % POC Hct 51 (42-52) % MCV 82.7 (80.0-100.0) fL MCH 29.7 (25.0-34.0) pg MCHC 35.9 (32.0-36.0) g/dL RDW Std Deviation 38.7 (36.4-46.3) fL RDW Coeff of Alberto 12.8 (11.5-14.5) % Plt Count 166 (130-400) K/uL MPV 10.7 (9.4-12.4) fL Immature Gran % (Auto) 0.3 % Neut % (Auto) 57.6 % Lymph % (Auto) 29.2 % Preble % (Auto) 10.3 % Eos % (Auto) 2.1 % Baso % (Auto) 0.5 % Neut # (Auto) 3.60 (1.40-6.50) K/uL Lymph # (Auto) 1.82 (1.20-3.40) K/uL Preble # (Auto) 0.64 H (0.11-0.59) K/uL Eos # (Auto) 0.13 (0.00-0.50) K/uL Baso # (Auto) 0.03 (0.00-0.20) K/uL Immature Gran # (Auto) 0.02 (0.01-0.20) K/uL PT 11.2 (9.0-12.0) Seconds INR 1.0 (0.9-1.1) APTT 21 (21-31) Seconds PTT Ratio 0.7 POC Sodium 142 (135-144) mmol/L Sodium 140 (136-145) mmol/L POC Potassium 4.0 (3.3-5.0) mmol/L Potassium 3.9 (3.5-5.1) mmol/L POC Chloride 103 (101-112) mmol/L Chloride 104 (98-107) mmol/L Carbon Dioxide 27 (21-32) mmol/L POC Total CO2 26 (24-31) mmol/L Anion Gap 9 (3-11) POC Anion Gap 18.0 (16-25) mmol/L POC BUN 9 (7-18) mg/dl BUN 10 (6-23) mg/dl Creatinine 0.85 (0.6-1.4) mg/dl POC Creatinine 0.8 (0.6-1.3) mg/dl Est Cr Clr Drug Dosing 143.3 ml/min Est GFR ( Amer) 119.4 ml/min Est GFR (Non-Af Amer) 103.0 ml/min BUN/Creatinine Ratio 11.8 (10-20) Glucose 114 H (70-99(Fasting)) mg/dl POC Glucose (other) 115 H (70-99) mg/dl Calcium 9.9 (8.6-10.3) mg/dl POC Ioniz Calcium Korey 1.16 (1.12-1.32) mmol/l Magnesium 1.9 (1.7-2.4) mg/dl Total Bilirubin 1.1 H (0.2-1.0) mg/dl AST 39 (13-39) U/L ALT 52 (7-52) U/L Alkaline Phosphatase 65 (34-104) U/L Troponin I High Sens 5.8 (0-20) pg/ml Total Protein 8.7 H (6.0-8.3) gm/dl Albumin 4.9 (3.4-5.0) gm/dl Globulin 3.8 (2.5-4.0) gm/dl Albumin/Globulin Ratio 1.3 (0.9-2) Valproic Acid 11 L (50-100) mcg/ml Administered Medications Amlodipine Besylate (Amlodipine Besylate 5 Mg Tab) 10 mg PO QAM FRANCISCO Stop: 10/13/23 16:44 Last Admin: 09/13/23 18:36 Dose: 10 mg Documented By: ANIRUDH Divalproex Sodium (Divalproex Delay Release 500 Mg Tab) 1,000 mg PO BID FRANCISCO Stop: 10/13/23 20:59 Last Admin: 09/13/23 20:14 Dose: 1,000 mg Documented By: MG Hydralazine HCl (Hydralazine Hcl 20 Mg/Ml Vial) 5 mg IV Q2H PRN PRN Reason: SBP >185 and/OR DPB >105 and HR <60 Stop: 10/13/23 19:29 Last Admin: 09/13/23 20:14 Dose: 5 mg Documented By: MG Nicardipine HCl 25 mg/ Sodium (Chloride) 250 mls @ 0 mls/hr IV .Q0M ON LICENSE OF [facility]; Protocol Stop: 10/13/23 15:59 Last Titration: 09/13/23 17:10 Dose: 0 mg/hr, 0 mls/hr Documented By: Admin: 09/13/23 16:08 Dose: 5 mg/hr, 50 mls/hr Documented By: ANIRUDH Co-signed By: LEX Discontinued Medications Acetaminophen (Acetaminophen 325 Mg Tab) 650 mg PO NOW STA Stop: 09/13/23 16:36 Last Admin: 09/13/23 16:39 Dose: 650 mg Documented By: ANIRUDH Divalproex Sodium (Divalproex Delay Release 500 Mg Tab) 1,000 mg PO NOW ONE Stop: 09/13/23 16:49 Last Admin: 09/13/23 17:11 Dose: 1,000 mg Documented By: ANIRUDH Tenecteplase 25 mg/ Syringe 5 mls @ 60 mls/min IV NOW ONE; Protocol Stop: 09/13/23 15:58 Last Admin: 09/13/23 15:56 Dose: 60 mls/min Documented By: ANIRUDH Co-signed By: ZAK Acetaminophen (Ofirmev) 1,000 mg in 100 mls @ 400 mls/hr IV NOW STA Stop: 09/13/23 19:43 Last Infusion: 09/13/23 20:13 Dose: Infused Documented By: Admin: 09/13/23 19:58 Dose: 400 mls/hr Documented By: MG Ioversol (Optiray 320 125ml) 119 ml IV ONCE ONE Stop: 09/13/23 14:53 Last Admin: 09/13/23 14:57 Dose: 119 ml Documented By: KATE Labetalol HCl (Labetalol Hcl Iv 5 Mg/Ml 20ml) 10 mg IV NOW STA Stop: 09/13/23 15:13 Last Admin: 09/13/23 15:18 Dose: 10 mg Documented By: ANIRUDH Co-signed By: ADRIAN Labetalol HCl (Labetalol Hcl Iv 5 Mg/Ml 20ml) 10 mg IV NOW STA Stop: 09/13/23 15:33 Last Admin: 09/13/23 15:36 Dose: 10 mg Documented By: ANIRUDH Co-signed By: OFE Yap (Stat Iv Infusion Titration Per Protocol) 1 each N/A NOW STA Stop: 09/13/23 15:47 Last Admin: 09/13/23 16:17 Dose: Not Given Documented By: ANIRUDH Yap (Stat Iv/Im) 1 each N/A NOW STA Stop: 09/13/23 15:47 Last Admin: 09/13/23 15:56 Dose: Not Given Documented By: ANIRUDH Ondansetron HCl (Ondansetron Inj 2 Mg/Ml 2 Ml Vial) 4 mg IV NOW STA Stop: 09/13/23 18:59 Last Admin: 09/13/23 19:30 Dose: 4 mg Documented By: MG Sodium Chloride (Sodium Chloride 0.9% 10ml Flush) 20 ml IV NOW STA Stop: 09/13/23 15:47 Last Admin: 09/13/23 15:58 Dose: 20 ml Documented By: ANIRUDH Imaging Data Radiologist's Impression: Head CT 09/13/23 14:48 CT SCAN OF THE BRAIN WITHOUT IV CONTRAST CLINICAL HISTORY: Neurological deficit. Stroke like symptoms. COMPARISON STUDY: No priors. TECHNIQUE: Unenhanced axial CT scan of the brain is performed from the vertex to the skull base. A dose lowering technique was utilized adhering to the principles of ALARA. CT DOSE: 1168.41 mGy.cm FINDINGS: Brain parenchyma: The brain parenchyma is normal in appearance. There is no hemorrhage, mass effect, or evidence of acute territorial ischemia by CT criteria. Gomez-white matter differentiation is preserved. No extra-axial fluid collection is seen. Ventricles, sulci, cisterns: Normal in configuration. Intracranial vasculature: The visualized intracranial vasculature at the skull base is normal in appearance. Calvarium: Unremarkable. Sinuses and mastoids: The visualized paranasal sinuses are clear. The mastoid air cells are well pneumatized. Orbits: The bony orbits are grossly intact. IMPRESSION: There is no hemorrhage, mass effect, or evidence of acute territorial ischemia by CT criteria. ACT 112: Negative or not required by law. Electronically signed by: Sanjay Ledesma M.D. 09/13/2023 3:10 PM Head CTA 09/13/23 14:48 CT ANGIOGRAM OF THE BRAIN; CT ANGIOGRAM OF THE NECK CLINICAL HISTORY: Left-sided weakness and tingling. Stroke like symptoms. Neurological deficit. COMPARISON STUDY: Unenhanced CT of the brain performed concurrently on 09/23/2023. TECHNIQUE: Following the IV administration of 119 of Optiray 320, CT angiogram of the head and neck was performed from the aortic arch to the vertex. Images are reviewed in the axial, sagittal, and coronal planes. 3-D MIPS images are created and assessed. IV contrast was administered without complication. All measurements were calculated based on NASCET criteria. A dose lowering technique was utilized adhering to the principles of ALARA. FINDINGS: Brain parenchyma: There is no evidence of hemorrhage, mass effect, or acute territorial ischemia noting angiographic phase technique. There is no evidence of enhancing mass lesion on the angiogram phase images. The ventricles, sulci, and cisterns are normal in configuration. Gomez-white matter differentiation is preserved. No extra-axial fluid collection is seen. Thoracic aorta: Visualized portions of the thoracic aorta are normal in caliber. The aortic arch demonstrates standard 3-vessel anatomy. Right carotid arterial system: The right common carotid artery is widely patent, as are the right internal and external carotid arteries. Left carotid arterial system: The left common carotid artery is widely patent, as are the left internal and external carotid arteries. Minimal plaque is seen in the carotid bulb. Vertebral arteries: The vertebral arteries are widely patent bilaterally noting mild left-sided dominance. Subclavian arteries: Widely patent bilaterally. Intracranial vasculature: The internal carotid arteries are patent at the skull base, as are the anterior and middle cerebral arteries bilaterally. The vertebrobasilar system and posterior cerebral arteries are widely patent. The lateral vertebral artery is dominant. There is no aneurysm, high-grade stenosis, or focal vessel cut off seen throughout the intracranial circulation. Jugular veins: Patent bilaterally. Dural sinuses: Patent. Lung apices: Partially visualized upper lobe lung parenchyma appears clear. Soft tissues: The visualized pharyngeal soft tissues are normal in appearance noting angiographic phase technique. The oropharyngeal airway appears widely patent. The salivary and thyroid glands are normal in appearance. No cervical lymphadenopathy is seen. Skeletal structures: The calvarium appears intact. The cervical spine is within normal limits. Orbits: The bony orbits are intact. Orbital contents are normal as visualized. Sinuses and mastoids: The paranasal sinuses are clear. The mastoid air cells are well pneumatized. IMPRESSION: 1. There is no evidence of hemorrhage, mass effect, or acute territorial ischemia noting angiographic phase technique. 2. Unremarkable CT angiogram of the brain. 3. Unremarkable CT angiogram of the neck. ACT 112: Negative or not required by law. Electronically signed by: Sanjay Ledesma M.D. 09/13/2023 3:16 PM Neck CTA 09/13/23 14:48 CT ANGIOGRAM OF THE BRAIN; CT ANGIOGRAM OF THE NECK CLINICAL HISTORY: Left-sided weakness and tingling. Stroke like symptoms. Neurological deficit. COMPARISON STUDY: Unenhanced CT of the brain performed concurrently on 09/23/2023. TECHNIQUE: Following the IV administration of 119 of Optiray 320, CT angiogram of the head and neck was performed from the aortic arch to the vertex. Images are reviewed in the axial, sagittal, and coronal planes. 3-D MIPS images are created and assessed. IV contrast was administered without complication. All measurements were calculated based on NASCET criteria. A dose lowering technique was utilized adhering to the principles of ALARA. FINDINGS: Brain parenchyma: There is no evidence of hemorrhage, mass effect, or acute territorial ischemia noting angiographic phase technique. There is no evidence of enhancing mass lesion on the angiogram phase images. The ventricles, sulci, and cisterns are normal in configuration. Gomez-white matter differentiation is preserved. No extra-axial fluid collection is seen. Thoracic aorta: Visualized portions of the thoracic aorta are normal in caliber. The aortic arch demonstrates standard 3-vessel anatomy. Right carotid arterial system: The right common carotid artery is widely patent, as are the right internal and external carotid arteries. Left carotid arterial system: The left common carotid artery is widely patent, as are the left internal and external carotid arteries. Minimal plaque is seen in the carotid bulb. Vertebral arteries: The vertebral arteries are widely patent bilaterally noting mild left-sided dominance. Subclavian arteries: Widely patent bilaterally. Intracranial vasculature: The internal carotid arteries are patent at the skull base, as are the anterior and middle cerebral arteries bilaterally. The vertebrobasilar system and posterior cerebral arteries are widely patent. The lateral vertebral artery is dominant. There is no aneurysm, high-grade stenosis, or focal vessel cut off seen throughout the intracranial circulation. Jugular veins: Patent bilaterally. Dural sinuses: Patent. Lung apices: Partially visualized upper lobe lung parenchyma appears clear. Soft tissues: The visualized pharyngeal soft tissues are normal in appearance noting angiographic phase technique. The oropharyngeal airway appears widely patent. The salivary and thyroid glands are normal in appearance. No cervical lymphadenopathy is seen. Skeletal structures: The calvarium appears intact. The cervical spine is within normal limits. Orbits: The bony orbits are intact. Orbital contents are normal as visualized. Sinuses and mastoids: The paranasal sinuses are clear. The mastoid air cells are well pneumatized. IMPRESSION: 1. There is no evidence of hemorrhage, mass effect, or acute territorial ischemia noting angiographic phase technique. 2. Unremarkable CT angiogram of the brain. 3. Unremarkable CT angiogram of the neck. ACT 112: Negative or not required by law. Electronically signed by: Sanjay Ledesma M.D. 09/13/2023 3:16 PM Discharge Plan Visit Data Chief Complaint: Stroke Alert ED Provider: Zuhair Powers Discharge Problem: Acute CVA (cerebrovascular accident), Left-sided weakness Patient Disposition: Admitted As Inpatient Discharge Instructions Interventions: ED Discharge Assessment Last Done: 09/13/23 18:51
[2023-09-13 15:05] LABS: Basophils # (auto) 0.03 K/uL (0.00-0.20); Basophils % (auto) 0.5 %; Eosinophils # (auto) 0.13 K/uL (0.00-0.50); Eosinophils % (auto) 2.1 %; Hematocrit (blood only) 47.4 % (42.0-52.0); Immature Granulocytes # (auto) 0.02 K/uL (0.01-0.20); Immature Granulocytes % (auto) 0.3 %; Lymphocytes # (auto) 1.82 K/uL (1.20-3.40); Lymphocytes % (auto) 29.2 %; Mean Corpuscular Hemoglobin 29.7 pg (25.0-34.0); Mean Corpuscular Hgb Conc 35.9 g/dL (32.0-36.0); Mean Corpuscular Volume 82.7 fL (80.0-100.0); Mean Platelet Volume 10.7 fL (9.4-12.4); Monocytes # (auto) 0.64 K/uL (0.11-0.59); Monocytes % (auto) 10.3 %; Neutrophils % (auto) 57.6 %; Platelet Count 166 K/uL (130-400); RDW Coefficient of Variation 12.8 % (11.5-14.5); RDW Standard Deviation 38.7 fL (36.4-46.3); Red Blood Count 5.73 M/uL (4.70-6.10); White Blood Count 6.24 K/ul (4.8-10.8)
[2023-09-13 15:09] LABS: iSTAT Creatinine 0.8 mg/dl (0.6-1.3); iSTAT Hemoglobin 17.3 g/dl (14.0-18.0); iSTAT Ionized Calcium 1.16 mmol/l (1.12-1.32)
--- NOTE | 2023-09-13 15:11 | CT Scan Report ---
CT SCAN OF THE BRAIN WITHOUT IV CONTRAST CLINICAL HISTORY: Neurological deficit. Stroke like symptoms. COMPARISON STUDY: No priors. TECHNIQUE: Unenhanced axial CT scan of the brain is performed from the vertex to the skull base. A d ose lowering technique was utilized adhering to the principles of ALARA. CT DOSE: 1168.41 mGy.cm FINDINGS: Brain parenchyma: The brain parenchyma is normal in appearance. There is no hemorrhage, mass effect, or evidence of acute territorial ischemia by CT criteria. Gomez-white matter differentiation is preser gabo. No extra-axial fluid collection is seen. Ventricles, sulci, cisterns: Normal in configuration. Intracranial vasculature: The visualized intracranial vasculature at the skull base is normal in appe arance. Calvarium: Unremarkable. Sinuses and mastoids: The visualized paranasal sinuses are clear. The mastoid air cells are well pneu matized. Orbits: The bony orbits are grossly intact. IMPRESSION: There is no hemorrhage, mass effect, or evidence of acute territorial ischemia by CT lopez shaw. ACT 112: Negative or not required by law. Electronically signed by: Sanjay Ledesma M.D. 09/13/2023 3:10 PM
[2023-09-13] MEDS ORDERED: LABETALOL HCL IV 5 MG/ML 20ML IV STA ×2 (15:12→15:32)
--- NOTE | 2023-09-13 15:18 | CT Scan Report ---
CT ANGIOGRAM OF THE BRAIN; CT ANGIOGRAM OF THE NECK CLINICAL HISTORY: Left-sided weakness and tingling. Stroke like symptoms. Neurological deficit. COMPARISON STUDY: Unenhanced CT of the brain performed concurrently on 09/23/2023. TECHNIQUE: Following the IV administration of 119 of Optiray 320, CT angiogram of the head and neck w as performed from the aortic arch to the vertex. Images are reviewed in the axial, sagittal, and tone nal planes. 3-D MIPS images are created and assessed. IV contrast was administered without complicati on. All measurements were calculated based on NASCET criteria. A dose lowering technique was utilize d adhering to the principles of ALARA. FINDINGS: Brain parenchyma: There is no evidence of hemorrhage, mass effect, or acute territorial ischemia noti ng angiographic phase technique. There is no evidence of enhancing mass lesion on the angiogram phase images. The ventricles, sulci, and cisterns are normal in configuration. Gomez-white matter different iation is preserved. No extra-axial fluid collection is seen. Thoracic aorta: Visualized portions of the thoracic aorta are normal in caliber. The aortic arch demo nstrates standard 3-vessel anatomy. Right carotid arterial system: The right common carotid artery is widely patent, as are the right int ernal and external carotid arteries. Left carotid arterial system: The left common carotid artery is widely patent, as are the left r d internship al and external carotid arteries. Minimal plaque is seen in the carotid bulb. Vertebral arteries: The vertebral arteries are widely patent bilaterally noting mild left-sided domin ance. Subclavian arteries: Widely patent bilaterally. Intracranial vasculature: The internal carotid arteries are patent at the skull base, as are the ante rior and middle cerebral arteries bilaterally. The vertebrobasilar system and posterior cerebral jennifer migdalia are widely patent. The lateral vertebral artery is dominant. There is no aneurysm, high-grade st enosis, or focal vessel cut off seen throughout the intracranial circulation. Jugular veins: Patent bilaterally. Dural sinuses: Patent. Lung apices: Partially visualized upper lobe lung parenchyma appears clear. Soft tissues: The visualized pharyngeal soft tissues are normal in appearance noting angiographic pha se technique. The oropharyngeal airway appears widely patent. The salivary and thyroid glands are nor mal in appearance. No cervical lymphadenopathy is seen. Skeletal structures: The calvarium appears intact. The cervical spine is within normal limits. Orbits: The bony orbits are intact. Orbital contents are normal as visualized. Sinuses and mastoids: The paranasal sinuses are clear. The mastoid air cells are well pneumatized. IMPRESSION: 1. There is no evidence of hemorrhage, mass effect, or acute territorial ischemia noting angiographic phase technique. 2. Unremarkable CT angiogram of the brain. 3. Unremarkable CT angiogram of the neck. ACT 112: Negative or not required by law. Electronically signed by: Sanjay Ledesma M.D. 09/13/2023 3:16 PM
[2023-09-13 15:23] LABS: Albumin Globulin Ratio 1.3 (0.9-2); Albumin Level 4.9 gm/dl (3.4-5.0); BUN Creatinine Ratio 11.8 (10-20); Bilirubin,Total 1.1 mg/dl (0.2-1.0); Calcium 9.9 mg/dl (8.6-10.3); Creatinine Clr Calc Pharmacy 143.3 ml/min; Est GFR (African American) 119.4 ml/min; Globulin 3.8 gm/dl (2.5-4.0); Magnesium 1.9 mg/dl (1.7-2.4); Potassium 3.9 mmol/L (3.5-5.1); Total Protein 8.7 gm/dl (6.0-8.3)
[2023-09-13 15:28] LABS: Troponin I High Sensitivity 5.8 pg/ml (0-20)
[2023-09-13 15:38] LABS: Partial Thromboplastin Ratio 0.7; Partial Thromboplastin Time 21 Seconds (21-31); Prothrombin Time 11.2 Seconds (9.0-12.0)
[2023-09-13] MEDS ORDERED: STAT IV Infusion **Titration per Protocol STA (15:46)
[2023-09-13] MEDS ORDERED: SODIUM CHLORIDE 0.9% 10ML FLUSH IV STA (15:46)
[2023-09-13] MEDS ORDERED: STAT IV/IM STA (15:46)
[2023-09-13] MEDS ORDERED: TENECTEPLASE 25 MG in SYRINGE 0 ML IV ONE (15:57)
[2023-09-13] MEDS ORDERED: No Aspirin within 24hrs of THROMBOLYTIC-Stroke PO SCH (16:00)
[2023-09-13] MEDS ORDERED: niCARdipine 25 MG in SODIUM CHLORIDE 0.9% 240 ML IV SCH (16:00)
--- NOTE | 2023-09-13 16:11 | History & Physical Report ---
Date of Service September 13, 2023 Assessment & Plan (1) Left-sided weakness: Plan: -Admit to the ICU on Nicardipine drip for now -Spoke with [facility] who accepted the patient for ICU admission, consult placed -Patient is currently hemodynamically stable at 159/107 on Nicardipine drip at 5 mg/hr -Presented to the ED via EMS on 09/13 with acute onset of left sided weakness/numbness in the facial and left extremities -Time of last known well was approximately 1245 this afternoon -Stroke alert called in the ED, CT head and CTA head/neck negative for acute findings -Evaluated by [facility] who recommended TNK administration after BP was adequately controlled, patient was in agreement -Patient was given 2 doses of 10 mg IV labetalol and was then started on Nicardipine drip at 5 mg/HR -25 mg of Tenecteplase was administered at 1556 -Patient's symptoms are unchanged since arrival but have not progressed and he is without new symptoms -At this time the differential includes acute CVA, hypertensive emergency, focal seizure -Low suspicion for infection at this time as he is without fever or leukocytosis >Will obtain CXR for further evaluation -Continue Nicardipine drip for now to maintain systolic BP between 150-180 mmhg -Continue to monitor for signs of bleeding -Hold all anticoagulants and antiplatelets for the next 24 hours -q2h neuro checks -Will obtain stat MRI of the brain wo con for further evaluation -Will order TTE for further evaluation -Repeat CT brain wo con 24 hours S/P TNK administration is ordered -Patient passed beside dysphagia screen, will start clears, advance diet as tolerated -Seizure precautions -Neurology consult placed -BL ROBYN's for DVT PPX -AM CBC, CMP, PT/INR, A1c, fasting lipid panel, and mag level (2) HTN (hypertension): Plan: -Noted to be significantly hypertensive on arrival at 248/71 -Did receive his 5 mg Amlodipine and 50 mg Metoprolol Tartrate this am -Was given 100 mg PO labetalol at the [facility] prior to EMS arrival -Currently stable on Nicardipine drip at 5 mg/hr >Continue to titrate for goal systolic BP of 150-180 mmhg -Will increased the dose of his am Amlodipine to 10 mg daily starting tomorrow (09/14) -Continue currently dosing of BID metoprolol (3) Phenytoin level low: Plan: -Patient's Valproic acid level today is subtherapeutic at 11 mcg/mL -Confirmed with [facility] that he did have his am dose of 1000 mg Depakote -Spoke with Pharmacy, appreciate their assistance >Will given an additional 1000 mg PO Depakote on admission -Continue 1000 mg PO Depakote BID -Monitor daily valproic acid level (4) Schizophrenia spectrum disorder with psychotic disorder type not yet determined: Plan: -Currently alert, oriented, and without signs of hallucinations -Continue Abilify (5) History of seizures: Plan: -See Low Phenytoin Level Plan The patient was discussed with Dr. Martínez at the time of the admission History of Present Illness Chief Complaint: Left-sided weakness Primary Care Provider: [facility] Lopez is a 48 year old male inmate of [facility] with a PMH significant for seizure disorder, HTN, and schizophrenia who presented to the [facility] ED via EMS on 09/13/23 for acute onset of left sided weakness. Per the ED staff the patients last known well was approximately 1245 this afternoon. On arrival the patient was noted to be significantly hypertensive at 248/71 but otherwise stable. Labs were significant for a total bili of 1.1, and decreased valproic acid level of 11. CT of the head wo con and CTA of the head/neck were read as negative for acute findings. The patient was initially given 2 doses of 10 mg of IV labetalol. Per the ED staff, they spoke with the [facility] provider who recommended TNK administration after controlling the patients blood pressure. The patient was started on a Nicardipine drip at 5 mg/hr and 25 mg of IV Tenecteplase was administered at 1556. At the time of the exam the patient was sitting in bed in no acute distress. He states that he woke in his normal state of health without any complaints. He was in his cell watching TV around 1245 when he experienced an acute onset of lightheadedness with left sided facial, LUE, and LLE numbness with weakness. He opened his window and laid on his bed but symptoms persisted so he was sent to the [facility]. He states that he did have his am medications including 5 mg Amlodipine and 50 mg Metoprolol Tartrate. He states that he was given 100 mg of another PO medication but is unsure of the name. At this time he states that he is experiencing a headache and his left sided numbness with LUE and LLE weakness have not changed. He denies current tobacco use. He currently denies changes in vision, hearing, taste, smell, chest pain, SOB, cough, abd pain, nausea, vomiting, diarrhea, dysuria, hematuria, melena, LE swelling, and recent trauma. I spoke to the [facility] to obtain further information. They confirm that he had all his am medications including his amlodipine, metoprolol, Abilify, and am dose of Depakote. They also confirmed that the patient was given 100 mg PO Labetalol prior to EMS arrival. Please refer to Dr. Martínez's attestation for any changes to the treatment plan Allergies Allergy/AdvReac Type Severity Reaction Status Date / Time acetaminophen Allergy Unknown ON SCI Verified 09/13/23 15:09 LETITIA [facility] MED LIST aspirin Allergy Unknown ON SCI Verified 09/13/23 15:10 [From Excedrin Migraine] LETITIA [facility] MED LIST caffeine Allergy Unknown ON SCI Verified 09/13/23 15:10 [From Excedrin Migraine] LETITIA [facility] MED LIST chlorpromazine Allergy Unknown ON SCI Verified 09/13/23 15:09 [facility] Home Medications Medication Instructions Recorded Confirmed Type amlodipine 5 mg tablet 5 mg PO DAILY 09/13/23 09/13/23 History aripiprazole 2 mg tablet (Abilify) 2 mg PO DAILY 09/13/23 09/13/23 History aripiprazole 5 mg tablet (Abilify) 5 mg PO DAILY 09/13/23 09/13/23 History diphenhydramine HCl 50 mg capsule 50 mg PO BID 09/13/23 09/13/23 History divalproex 250 mg tablet,delayed 1,000 mg PO BID 09/13/23 09/13/23 History release (Depakote) metoprolol tartrate 50 mg tablet 50 mg PO BID 09/13/23 09/13/23 History Past Med/Surg History Social History Smoking Status: Former smoker Preferred Language: Pakistani Feels Safe at Home: Hesitant to Answer Physical Exam Physical Exam: Physical Exam: General: In no acute distress, stated age, well-nourished, good hygiene HEENT: Normocephalic, atraumatic, no scleral icterus, pupils around round, symmetrical, and reactive to light, moist mucus membranes, trachea midline, no thyromegaly Chest/Pulm: No respiratory distress, symmetrical chest expansion, clear breath sounds throughout Cardiac: RRR, no murmurs noted Abdomen: Negative for ascites and bruising, normoactive bowel sounds, soft, non-tender to palpation throughout Musculoskeletal: Symmetrical and without signs of acute trauma Extremities: Radial, dorsalis pedis, and posterior tibial pulses are intact and symmetrical, no edema noted in the BL LE's Skin: Warm, dry, no rashes , lesions, or scars noted Neuro: Alert and oriented to person, place, month, year, and president, no focal defects, CN II-XII tested with decreased sensation on the left face but otherwise intact, positive left sided cerebellar testing but negative right sided, decreased strength in the left upper/lower extremities compared to right, no tremors noted Psych: No acute distress, calm and cooperative during the exam Results & Data Results & Data Vital Signs (Past 12 Hours) Vital Signs Temp Pulse Resp BP Pulse Ox O2 Del Method 09/13/23 15:36 97 H 205/134 H 09/13/23 15:18 81 200/124 H 09/13/23 14:54 81 09/13/23 14:50 37.3 C 98 H 20 248/71 H 96 Room Air Laboratory Results Abnormal lab results 09/13/23 09/13/23 Range/Units 13:52 14:55 [place] # (Auto) 0.64 H (0.11-0.59) K/uL Glucose 114 H (70-99(Fasting)) mg/dl POC Glucose (other) 115 H (70-99) mg/dl Total Bilirubin 1.1 H (0.2-1.0) mg/dl Total Protein 8.7 H (6.0-8.3) gm/dl Valproic Acid 11 L (50-100) mcg/ml Diagnostic Findings Head CT 09/13/23 14:48 CT SCAN OF THE BRAIN WITHOUT IV CONTRAST CLINICAL HISTORY: Neurological deficit. Stroke like symptoms. COMPARISON STUDY: No priors. TECHNIQUE: Unenhanced axial CT scan of the brain is performed from the vertex to the skull base. A dose lowering technique was utilized adhering to the principles of ALARA. CT DOSE: 1168.41 mGy.cm FINDINGS: Brain parenchyma: The brain parenchyma is normal in appearance. There is no hemorrhage, mass effect, or evidence of acute territorial ischemia by CT criteria. Gomez-white matter differentiation is preserved. No extra-axial fluid collection is seen. Ventricles, sulci, cisterns: Normal in configuration. Intracranial vasculature: The visualized intracranial vasculature at the skull base is normal in appearance. Calvarium: Unremarkable. Sinuses and mastoids: The visualized paranasal sinuses are clear. The mastoid air cells are well pneumatized. Orbits: The bony orbits are grossly intact. IMPRESSION: There is no hemorrhage, mass effect, or evidence of acute territorial ischemia by CT criteria. ACT 112: Negative or not required by law. Electronically signed by: Sanjay Ledesma M.D. 09/13/2023 3:10 PM Head CTA 09/13/23 14:48 CT ANGIOGRAM OF THE BRAIN; CT ANGIOGRAM OF THE NECK CLINICAL HISTORY: Left-sided weakness and tingling. Stroke like symptoms. Neurological deficit. COMPARISON STUDY: Unenhanced CT of the brain performed concurrently on 09/23/2023. TECHNIQUE: Following the IV administration of 119 of Optiray 320, CT angiogram of the head and neck was performed from the aortic arch to the vertex. Images are reviewed in the axial, sagittal, and coronal planes. 3-D MIPS images are created and assessed. IV contrast was administered without complication. All measurements were calculated based on NASCET criteria. A dose lowering technique was utilized adhering to the principles of ALARA. FINDINGS: Brain parenchyma: There is no evidence of hemorrhage, mass effect, or acute territorial ischemia noting angiographic phase technique. There is no evidence of enhancing mass lesion on the angiogram phase images. The ventricles, sulci, and cisterns are normal in configuration. Gomez-white matter differentiation is preserved. No extra-axial fluid collection is seen. Thoracic aorta: Visualized portions of the thoracic aorta are normal in caliber. The aortic arch demonstrates standard 3-vessel anatomy. Right carotid arterial system: The right common carotid artery is widely patent, as are the right internal and external carotid arteries. Left carotid arterial system: The left common carotid artery is widely patent, as are the left internal and external carotid arteries. Minimal plaque is seen in the carotid bulb. Vertebral arteries: The vertebral arteries are widely patent bilaterally noting mild left-sided dominance. Subclavian arteries: Widely patent bilaterally. Intracranial vasculature: The internal carotid arteries are patent at the skull base, as are the anterior and middle cerebral arteries bilaterally. The vertebrobasilar system and posterior cerebral arteries are widely patent. The lateral vertebral artery is dominant. There is no aneurysm, high-grade stenosis, or focal vessel cut off seen throughout the intracranial circulation. Jugular veins: Patent bilaterally. Dural sinuses: Patent. Lung apices: Partially visualized upper lobe lung parenchyma appears clear. Soft tissues: The visualized pharyngeal soft tissues are normal in appearance noting angiographic phase technique. The oropharyngeal airway appears widely patent. The salivary and thyroid glands are normal in appearance. No cervical lymphadenopathy is seen. Skeletal structures: The calvarium appears intact. The cervical spine is within normal limits. Orbits: The bony orbits are intact. Orbital contents are normal as visualized. Sinuses and mastoids: The paranasal sinuses are clear. The mastoid air cells are well pneumatized. IMPRESSION: 1. There is no evidence of hemorrhage, mass effect, or acute territorial ischemia noting angiographic phase technique. 2. Unremarkable CT angiogram of the brain. 3. Unremarkable CT angiogram of the neck. ACT 112: Negative or not required by law. Electronically signed by: Sanjay Ledesma M.D. 09/13/2023 3:16 PM Neck CTA 09/13/23 14:48 CT ANGIOGRAM OF THE BRAIN; CT ANGIOGRAM OF THE NECK CLINICAL HISTORY: Left-sided weakness and tingling. Stroke like symptoms. Neurological deficit. COMPARISON STUDY: Unenhanced CT of the brain performed concurrently on 09/23/2023. TECHNIQUE: Following the IV administration of 119 of Optiray 320, CT angiogram of the head and neck was performed from the aortic arch to the vertex. Images are reviewed in the axial, sagittal, and coronal planes. 3-D MIPS images are created and assessed. IV contrast was administered without complication. All measurements were calculated based on NASCET criteria. A dose lowering technique was utilized adhering to the principles of ALARA. FINDINGS: Brain parenchyma: There is no evidence of hemorrhage, mass effect, or acute territorial ischemia noting angiographic phase technique. There is no evidence of enhancing mass lesion on the angiogram phase images. The ventricles, sulci, and cisterns are normal in configuration. Gomez-white matter differentiation is preserved. No extra-axial fluid collection is seen. Thoracic aorta: Visualized portions of the thoracic aorta are normal in caliber. The aortic arch demonstrates standard 3-vessel anatomy. Right carotid arterial system: The right common carotid artery is widely patent, as are the right internal and external carotid arteries. Left carotid arterial system: The left common carotid artery is widely patent, as are the left internal and external carotid arteries. Minimal plaque is seen in the carotid bulb. Vertebral arteries: The vertebral arteries are widely patent bilaterally noting mild left-sided dominance. Subclavian arteries: Widely patent bilaterally. Intracranial vasculature: The internal carotid arteries are patent at the skull base, as are the anterior and middle cerebral arteries bilaterally. The vertebrobasilar system and posterior cerebral arteries are widely patent. The lateral vertebral artery is dominant. There is no aneurysm, high-grade stenosis, or focal vessel cut off seen throughout the intracranial circulation. Jugular veins: Patent bilaterally. Dural sinuses: Patent. Lung apices: Partially visualized upper lobe lung parenchyma appears clear. Soft tissues: The visualized pharyngeal soft tissues are normal in appearance noting angiographic phase technique. The oropharyngeal airway appears widely patent. The salivary and thyroid glands are normal in appearance. No cervical lymphadenopathy is seen. Skeletal structures: The calvarium appears intact. The cervical spine is within normal limits. Orbits: The bony orbits are intact. Orbital contents are normal as visualized. Sinuses and mastoids: The paranasal sinuses are clear. The mastoid air cells are well pneumatized. IMPRESSION: 1. There is no evidence of hemorrhage, mass effect, or acute territorial ischemia noting angiographic phase technique. 2. Unremarkable CT angiogram of the brain. 3. Unremarkable CT angiogram of the neck. ACT 112: Negative or not required by law. Electronically signed by: Sanjay Ledesma M.D. 09/13/2023 3:16 PM ECG Additional Comments: Suspect arm lead reversal, interpretation assumes no reversal Normal sinus rhythm Left posterior fascicular block Possible Inferior infarct , age undetermined Abnormal ECG When compared with ECG of 05-DEC-2017 10:48, Left posterior fascicular block is now Present Borderline criteria for Inferior infarct are now Present Code Status & VTE Plan Code Status Full code VTE Prophylaxis Plan VTE Prophylaxis will be ordered: Yes Supervising Physician Co-Signing Physician Notes John Green is a 48-year-old male inmate with a past medical history of seizures and schizophrenia who presented with headache, left-sided numbness, and left-sided weakness with onset approximately 12:45 PM without vision change, dysarthria, or aphasia. Patient does have a history of seizures, did not experience loss of consciousness, tremors, incontinence preceding his weakness or on the day of admission. Patient was evaluated in the ER for potential stroke. Patient was hypertensive on arrival to the ER with BP 248/71, he was given labetalol with improvement to 200/124. CThead without acute abnormality. Angiography of the head and neck did not show any acute findings or significant stenosis/occlusion. Labetelol x2 ordered with BP improvement, case was reviewed with telestroke and TNKase offered to patient. Pt elected for TNKase treatment on risk/benefits discussion, administered at 3:56pm. Nicardipine was ordered goal 160-180/105. On bedside patient +left upper extremity asymmetric weakness, +weakness to flexion of the left hip. +L hand dysmetria. L leg testing limited by shackle. Denies chest pain, chest pressure, shortness of breath. Denies aphasia. Denies dysarthria. +facial numbness/tingling without droop. VF intact. PERLAA. 1st reassessment ~30 minutes post TNKase no change. Reassessment @ 90 minutes with BP decreased and gtt paused; pt tired but no clinical change/neurologic change. Strokelike symptoms, left sided weakness, tingling, and dysmetria - Onset of sx 12:45pm. No history of bleeding, recent CVA, or aneurysms. Patient was hypertensive on arrival TNKase was administered at 1556hrs - No improvement on reassessment ~30 minutes post TNKase - Patient received 2x labetalol 10 mg prior to nicardipine being initiated at a rate of 5. Patient did take his morning medications including metoprolol and amlodipine 5 mg. Patient was to have his amlodipine uptitrated to 10 mg and metoprolol continued to help cross titrate with nicardipine drip; prior to receiving any oral agents patient's pressure did drop to 136/109 while on gtt. Additional oral agents held due to risk of watershed and to be continued 09/14, nicardipine paused with BP reassessment q15. Goal range 361412/105, will restart drip at 2.5 if rises above/upper limit of goal. Discussed with nursing staff. Admitted to ICU for post TNKase protocol MRI pending BP q15m x2hrs, then q30m x6 hours. Repeat interval CT in 24 hours -Venipuncture restricted Lipid panel pending, start 40-80mg based on LDL - No antiplatelet for 24 hours due to TNKase, BSG 114 on admission; ICU hypoglycemia protocol; a1c pending. +history of seizure and valproic acid level was low on admission. He did not have any loss of consciousness, no tremors, no bowel/bladder dysfunction. Patient was given a double proximal 1000 mg load and then was continued as twice daily. Seizure precautions. 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 Agree with assessment and management as noted above PG Care Time/CCT Total # of Minutes Spent Total Time Spent with Patient: Total time spent is greater than 50% in coordination of care (as documented) at patient's floor/unit and/or counseling patient: [place] [address] INT INP/OBS CARE 3/75MIN Patient Type Established Medical Decision Making High Complexity Diagnoses Left-sided weakness R53.1 HTN (hypertension) I10 Phenytoin level low R78.89 Schizophrenia spectrum disorder with psychotic disorder type not yet determined F29 History of seizures Z87.898
[2023-09-13] MEDS ORDERED: PHARMACIST DISCHARGE MED REC CONSULT PRN (16:16)
[2023-09-13] MEDS ORDERED: ACETAMINOPHEN 325 MG TAB PO STA (16:35)
--- NOTE | 2023-09-13 16:39 | Electrocardiogram Report ---
Test Reason : Blood Pressure : / mmHG Vent. Rate : 078 BPM Atrial Rate : 078 BPM P-R Int : 152 ms QRS Dur : 098 ms QT Int : 374 ms P-R-T Axes : 115 120 163 degrees QTc Int : 426 ms Suspect arm lead reversal, interpretation assumes no reversal Normal sinus rhythm Left posterior fascicular block Abnormal ECG When compared with ECG of 05-DEC-2017 10:48, Left posterior fascicular block is now Present Confirmed by Jan Guthrie ([id number]) on 09/13/2023 4:38:49 PM Referred By: Confirmed By:Jan Guthrie
[2023-09-13] MEDS ORDERED: DIVALPROEX DELAY RELEASE 500 MG TAB PO ONE (16:48)
--- NOTE | 2023-09-13 16:51 | Critical Care Consultation ---
Date of Consultation September 13, 2023 History of Present Illness History of Present Illness Patient's left-sided weakness for both upper and lower extremities. Patient says jaw feels his stiff, numb and forehead, eye also feels numb. Patient said all of these symptoms started around 12:55 pm and patient felt lightheaded and he opened window to get some air. When patient sat down his feeling of weakness and loss of sensation on left side of body got worse. Patient also has Hx of seizures, grand mal seizures, and has been taking valproic acid and per pt, is compliant with that. Current episode not at all like seizure, no shaking, convulsing involved, just sudden left-sided weakness and loss of sensation. No loss of control of bladder or biting of tongue occurred. Patient says that his weakness and loss of sensation has not improved at all, post-administration of the tenecteplase at ~ 4.00 pm. Allergies Allergy/AdvReac Type Severity Reaction Status Date / Time acetaminophen Allergy Unknown ON SCI Verified 09/13/23 15:09 Depart[facility] MED LIST aspirin Allergy Unknown ON SCI Verified 09/13/23 15:10 [From Excedrin Migraine] [facility]IA [email or web address] MED LIST caffeine Allergy Unknown ON SCI Verified 09/13/23 15:10 [From Excedrin Migraine] Departing MED LIST chlorpromazine Allergy Unknown ON SCI Verified 09/13/23 15:09 [facility]IT[email or web address] MED LIST Home Medications Medication Instructions Recorded Confirmed Type amlodipine 5 mg tablet 5 mg PO DAILY 09/13/23 09/13/23 History aripiprazole 2 mg tablet (Abilify) 2 mg PO DAILY 09/13/23 09/13/23 History aripiprazole 5 mg tablet (Abilify) 5 mg PO DAILY 09/13/23 09/13/23 History diphenhydramine HCl 50 mg capsule 50 mg PO BID 09/13/23 09/13/23 History divalproex 250 mg tablet,delayed 1,000 mg PO BID 09/13/23 09/13/23 History release (Depakote) metoprolol tartrate 50 mg tablet 50 mg PO BID 09/13/23 09/13/23 History Patient History Social History Smoking Status: Former smoker Preferred Language: Latvian Feels Safe at Home: Hesitant to Answer Review of Systems Eyes: no diplopia and no worsening vision Respiratory: no cough, no chest congestion and no dyspnea Cardiovascular: no chest pain and no palpitations Gastrointestinal: no abdominal pain, no nausea, no vomiting, no constipation and no diarrhea/loose stools Neurologic: + localized weakness (left LE, left UE), + numbness (left LE, UE) and + headache(s); no seizure-like activity, no abnormal speech and no confusion Physical Exam Constitutional: WD/WN, vitals as above Eyes: PERRL and EOM intact bilaterally Respiratory: normal respiratory effort, lungs clear to auscultation Cardiovascular: RRR, no murmur, no edema Gastrointestinal (Abdomen): normal bowel sounds, soft, nontender, no hepatosplenomegaly Neurologic: normal touch/pain/proprioception, CN's II-XI intact bilaterally, moves all extremities (patient's strength, 5/5 bilaterally, ankle, knee, hip extension/flexion UE) and awake Motor/Sensory: normal movement and no sensory deficit Cranial Nerves: PERRL, normal accommodation, EOM intact bilaterally, normal facial strength, tongue midline, normal hearing, able to rotate head bilaterally and able to elevate shoulders bilaterally Psychiatric: A+Ox3, euthymic affect Eye Contact: + poor eye contact Results & Data Results & Data Vital Signs (Past 12 Hours) Vital Signs Temp Pulse Pulse Resp BP BP Pulse Ox 09/13/23 16:25 89 18 168/109 H 96 09/13/23 16:10 82 18 158/98 H 92 09/13/23 15:55 72 18 179/103 H 96 09/13/23 15:36 97 H 205/134 H 09/13/23 15:18 81 200/124 H 09/13/23 14:54 81 09/13/23 14:50 37.3 C 98 H 20 248/71 H 96 O2 Del Method 09/13/23 16:25 Room Air 09/13/23 16:10 Room Air 09/13/23 15:55 Room Air 09/13/23 15:36 09/13/23 15:18 09/13/23 14:54 09/13/23 14:50 Room Air
[2023-09-13] MEDS ORDERED: LORazepam 2 MG in SYRINGE 1 ML IV PRN (17:30)
--- NOTE | 2023-09-13 17:30 | Critical Care Consultation ---
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 He was significantly hypertensive as well requiring Cardene. Recommendations: 1. Status post systemic thrombolytics. Will observe in the ICU for 24 hours for bleeding complications. Follow-up noncontrast CT of the head to be obtained in 24 hours. If this is negative, he can be downgraded out of the ICU with ultimate disposition depending on primary admitting service. 2. Neurological consultation pending. MRI of the brain pending. Will need PT and OT evaluations. 3. Hypertension: Restart amlodipine and metoprolol. Hopefully we can wean off Cardene. Presentation may have been consistent with hypertensive urgency. 4. Schizophrenia: Continue Abilify and Benadryl. 5. History of seizure disorder: No evidence of seizures identified. Continue home Depakote medication. Will observe in the ICU for bleeding complications associated with TNK. If MRI of the brain is abnormal, may consider additional imaging studies or additional intervention. Otherwise follow-up CT scan in 24 hours. History of Present Illness History of Present Illness Patient's left-sided weakness for both upper and lower extremities. Patient says jaw feels his stiff, numb and forehead, eye also feels numb. Patient said all of these symptoms started around 12:55 pm and patient felt lightheaded and he opened window to get some air. When patient sat down his feeling of weakness and loss of sensation on left side of body got worse. Patient also has Hx of seizures, grand mal seizures, and has been taking valproic acid and per pt, is compliant with that. Current episode not at all like seizure, no shaking, convulsing involved, just sudden left-sided weakness and loss of sensation. No loss of control of bladder or biting of tongue occurred. Patient says that his weakness and loss of sensation has not improved at all, post-administration of the tenecteplase at ~ 4.00 pm. Allergies Allergy/AdvReac Type Severity Reaction Status Date / Time acetaminophen Allergy Unknown ON SCI Verified 09/13/23 15:09 [facility] [place] aspirin Allergy Unknown ON SCI Verified 09/13/23 15:10 [From Excedrin Migraine] [facility] MED LIST caffeine Allergy Unknown ON SCI Verified 09/13/23 15:10 [From Excedrin Migraine] [facility] MED LIST chlorpromazine Allergy Unknown ON SCI Verified 09/13/23 15:09 [facility] MED LIST Home Medications Medication Instructions Recorded Confirmed Type amlodipine 5 mg tablet 5 mg PO DAILY 09/13/23 09/13/23 History aripiprazole 2 mg tablet (Abilify) 2 mg PO DAILY 09/13/23 09/13/23 History aripiprazole 5 mg tablet (Abilify) 5 mg PO DAILY 09/13/23 09/13/23 History diphenhydramine HCl 50 mg capsule 50 mg PO BID 09/13/23 09/13/23 History divalproex 250 mg tablet,delayed 1,000 mg PO BID 09/13/23 09/13/23 History release (Depakote) metoprolol tartrate 50 mg tablet 50 mg PO BID 09/13/23 09/13/23 History Patient History Social History Smoking Status: Former smoker Preferred Language: Belarusian Feels Safe at Home: Hesitant to Answer Review of Systems Review of Systems: Please refer to admission H&P. No additions or deletions Physical Exam Constitutional: WD/WN, vitals as above Neck: trachea midline, no thyromegaly Respiratory: normal respiratory effort, lungs clear to auscultation Cardiovascular: RRR, no murmur, no edema Gastrointestinal (Abdomen): normal bowel sounds, soft, nontender, no hepatosplenomegaly Musculoskeletal: Extremities: extremities normal to inspection Skin: no rashes, warm and dry Neurologic: Nonfocal exam Lymphatic: no cervical lymphadenopathy Results & Data Results & Data Vital Signs (Past 12 Hours) Vital Signs Temp Pulse Pulse Resp BP BP Pulse Ox 09/13/23 17:25 80 18 146/81 H 90 09/13/23 17:10 86 16 136/109 H 93 09/13/23 16:55 89 18 150/103 H 90 09/13/23 16:40 90 22 159/107 H 90 09/13/23 16:25 89 18 168/109 H 96 09/13/23 16:10 82 18 158/98 H 92 09/13/23 15:55 72 18 179/103 H 96 09/13/23 15:36 97 H 205/134 H 09/13/23 15:18 81 200/124 H 09/13/23 14:54 81 09/13/23 14:50 37.3 C 98 H 20 248/71 H 96 O2 Del Method 09/13/23 17:25 Room Air 09/13/23 17:10 Room Air 09/13/23 16:55 Room Air 09/13/23 16:40 Room Air 09/13/23 16:25 Room Air 09/13/23 16:10 Room Air 09/13/23 15:55 Room Air 09/13/23 15:36 09/13/23 15:18 09/13/23 14:54 09/13/23 14:50 Room Air Critical Care Results & Data Vital Signs (Past 12 Hours) Vital Signs Temp Pulse Pulse Resp BP BP Pulse Ox 09/13/23 17:25 80 18 146/81 H 90 09/13/23 17:10 86 16 136/109 H 93 09/13/23 16:55 89 18 150/103 H 90 09/13/23 16:40 90 22 159/107 H 90 09/13/23 16:25 89 18 168/109 H 96 09/13/23 16:10 82 18 158/98 H 92 09/13/23 15:55 72 18 179/103 H 96 09/13/23 15:36 97 H 205/134 H 09/13/23 15:18 81 200/124 H 09/13/23 14:54 81 09/13/23 14:50 37.3 C 98 H 20 248/71 H 96 O2 Del Method 09/13/23 17:25 Room Air 09/13/23 17:10 Room Air 09/13/23 16:55 Room Air 09/13/23 16:40 Room Air 09/13/23 16:25 Room Air 09/13/23 16:10 Room Air 09/13/23 15:55 Room Air 09/13/23 15:36 09/13/23 15:18 09/13/23 14:54 09/13/23 14:50 Room Air Lab & Micro Results (Past 24 Hours) RBC 5.73 M/uL (4.70-6.10) 09/13/23 WBC 6.24 K/ul (4.8-10.8) 09/13/23 Hgb 17.0 g/dl (14.0-18.0) 09/13/23 Hct 47.4 % (42.0-52.0) 09/13/23 MCV 82.7 fL (80.0-100.0) 09/13/23 MCH 29.7 pg (25.0-34.0) 09/13/23 MCHC 35.9 g/dL (32.0-36.0) 09/13/23 RDW Standard Deviation 38.7 fL (36.4-46.3) 09/13/23 RDW Coefficient of Variation 12.8 % (11.5-14.5) 09/13/23 Plt Count 166 K/uL (130-400) 09/13/23 MPV 10.7 fL (9.4-12.4) 09/13/23 Neutrophils (%) (Auto) 57.6 % 09/13/23 Lymphocytes (%) (Auto) 29.2 % 09/13/23 Monocytes # (Auto) 0.64 K/uL (0.11-0.59) H 09/13/23 Eosinophils # (Auto) 0.13 K/uL (0.00-0.50) 09/13/23 Immature Granulocyte % (Auto) 0.3 % 09/13/23 Neutrophils # (Auto) 3.60 K/uL (1.40-6.50) 09/13/23 Lymphocytes # (Auto) 1.82 K/uL (1.20-3.40) 09/13/23 Monocytes # (Auto) 0.64 K/uL (0.11-0.59) H 09/13/23 Eosinophils # (Auto) 0.13 K/uL (0.00-0.50) 09/13/23 Basophils # (Auto) 0.03 K/uL (0.00-0.20) 09/13/23 Immature Granulocyte # (Auto) 0.02 K/uL (0.01-0.20) 4 Na 140 mmol/L (136-145) 09/13/23 K 3.9 mmol/L (3.5-5.1) 09/13/23 Cl 104 mmol/L (98-107) 09/13/23 CO2 27 mmol/L (21-32) 09/13/23 Anion Gap 9 (3-11) 09/13/23 BUN 10 mg/dl (6-23) 09/13/23 Creatinine 0.85 mg/dl (0.6-1.4) 09/13/23 Estimated GFR ( Amer) 119.4 ml/min 09/13/23 Estimated GFR (Non-Af Amer) 103.0 ml/min 09/13/23 BUN/Creatinine Ratio 11.8 (10-20) 09/13/23 Glu 114 mg/dl (70-99(Fasting)) H 09/13/23 Ca 9.9 mg/dl (8.6-10.3) 09/13/23 Total Bilirubin 1.1 mg/dl (0.2-1.0) H 09/13/23 AST 39 U/L (13-39) 09/13/23 ALT 52 U/L (7-52) 09/13/23 Alkaline Phosphatase 65 U/L (34-104) 09/13/23 TP 8.7 gm/dl (6.0-8.3) H 09/13/23 Albumin 4.9 gm/dl (3.4-5.0) 09/13/23 Globulin 3.8 gm/dl (2.5-4.0) 09/13/23 Albumin/Globulin Ratio 1.3 (0.9-2) 09/13/23 Mg 1.9 mg/dl (1.7-2.4) 09/13/23 13:52 Calcium Level 9.9 mg/dl (8.6-10.3) 09/13/23 13:52 Prothromb Time International Ratio 1.0 (0.9-1.1) 09/13/23 13:5 2 Diagnostic Findings (Past 24 Hours) Head CT 09/13/23 14:48 CT SCAN OF THE BRAIN WITHOUT IV CONTRAST CLINICAL HISTORY: Neurological deficit. Stroke like symptoms. COMPARISON STUDY: No priors. TECHNIQUE: Unenhanced axial CT scan of the brain is performed from the vertex to the skull base. A dose lowering technique was utilized adhering to the principles of ALARA. CT DOSE: 1168.41 mGy.cm FINDINGS: Brain parenchyma: The brain parenchyma is normal in appearance. There is no hemorrhage, mass effect, or evidence of acute territorial ischemia by CT criteria. Gomez-white matter differentiation is preserved. No extra-axial fluid collection is seen. Ventricles, sulci, cisterns: Normal in configuration. Intracranial vasculature: The visualized intracranial vasculature at the skull base is normal in appearance. Calvarium: Unremarkable. Sinuses and mastoids: The visualized paranasal sinuses are clear. The mastoid air cells are well pneumatized. Orbits: The bony orbits are grossly intact. IMPRESSION: There is no hemorrhage, mass effect, or evidence of acute territorial ischemia by CT criteria. ACT 112: Negative or not required by law. Electronically signed by: Sanjay Ledesma M.D. 09/13/2023 3:10 PM Head CTA 09/13/23 14:48 CT ANGIOGRAM OF THE BRAIN; CT ANGIOGRAM OF THE NECK CLINICAL HISTORY: Left-sided weakness and tingling. Stroke like symptoms. Neurological deficit. COMPARISON STUDY: Unenhanced CT of the brain performed concurrently on 09/23/2023. TECHNIQUE: Following the IV administration of 119 of Optiray 320, CT angiogram of the head and neck was performed from the aortic arch to the vertex. Images are reviewed in the axial, sagittal, and coronal planes. 3-D MIPS images are created and assessed. IV contrast was administered without complication. All measurements were calculated based on NASCET criteria. A dose lowering technique was utilized adhering to the principles of ALARA. FINDINGS: Brain parenchyma: There is no evidence of hemorrhage, mass effect, or acute territorial ischemia noting angiographic phase technique. There is no evidence of enhancing mass lesion on the angiogram phase images. The ventricles, sulci, and cisterns are normal in configuration. Gomez-white matter differentiation is preserved. No extra-axial fluid collection is seen. Thoracic aorta: Visualized portions of the thoracic aorta are normal in caliber. The aortic arch demonstrates standard 3-vessel anatomy. Right carotid arterial system: The right common carotid artery is widely patent, as are the right internal and external carotid arteries. Left carotid arterial system: The left common carotid artery is widely patent, as are the left internal and external carotid arteries. Minimal plaque is seen in the carotid bulb. Vertebral arteries: The vertebral arteries are widely patent bilaterally noting mild left-sided dominance. Subclavian arteries: Widely patent bilaterally. Intracranial vasculature: The internal carotid arteries are patent at the skull base, as are the anterior and middle cerebral arteries bilaterally. The vertebrobasilar system and posterior cerebral arteries are widely patent. The lateral vertebral artery is dominant. There is no aneurysm, high-grade stenosis, or focal vessel cut off seen throughout the intracranial circulation. Jugular veins: Patent bilaterally. Dural sinuses: Patent. Lung apices: Partially visualized upper lobe lung parenchyma appears clear. Soft tissues: The visualized pharyngeal soft tissues are normal in appearance noting angiographic phase technique. The oropharyngeal airway appears widely patent. The salivary and thyroid glands are normal in appearance. No cervical lymphadenopathy is seen. Skeletal structures: The calvarium appears intact. The cervical spine is within normal limits. Orbits: The bony orbits are intact. Orbital contents are normal as visualized. Sinuses and mastoids: The paranasal sinuses are clear. The mastoid air cells are well pneumatized. IMPRESSION: 1. There is no evidence of hemorrhage, mass effect, or acute territorial ischemia noting angiographic phase technique. 2. Unremarkable CT angiogram of the brain. 3. Unremarkable CT angiogram of the neck. ACT 112: Negative or not required by law. Electronically signed by: Sanjay Ledesma M.D. 09/13/2023 3:16 PM Neck CTA 09/13/23 14:48 CT ANGIOGRAM OF THE BRAIN; CT ANGIOGRAM OF THE NECK CLINICAL HISTORY: Left-sided weakness and tingling. Stroke like symptoms. Neurological deficit. COMPARISON STUDY: Unenhanced CT of the brain performed concurrently on 09/23/2023. TECHNIQUE: Following the IV administration of 119 of Optiray 320, CT angiogram of the head and neck was performed from the aortic arch to the vertex. Images are reviewed in the axial, sagittal, and coronal planes. 3-D MIPS images are created and assessed. IV contrast was administered without complication. All measurements were calculated based on NASCET criteria. A dose lowering technique was utilized adhering to the principles of ALARA. FINDINGS: Brain parenchyma: There is no evidence of hemorrhage, mass effect, or acute territorial ischemia noting angiographic phase technique. There is no evidence of enhancing mass lesion on the angiogram phase images. The ventricles, sulci, and cisterns are normal in configuration. Gomez-white matter differentiation is preserved. No extra-axial fluid collection is seen. Thoracic aorta: Visualized portions of the thoracic aorta are normal in caliber. The aortic arch demonstrates standard 3-vessel anatomy. Right carotid arterial system: The right common carotid artery is widely patent, as are the right internal and external carotid arteries. Left carotid arterial system: The left common carotid artery is widely patent, as are the left internal and external carotid arteries. Minimal plaque is seen in the carotid bulb. Vertebral arteries: The vertebral arteries are widely patent bilaterally noting mild left-sided dominance. Subclavian arteries: Widely patent bilaterally. Intracranial vasculature: The internal carotid arteries are patent at the skull base, as are the anterior and middle cerebral arteries bilaterally. The vertebrobasilar system and posterior cerebral arteries are widely patent. The lateral vertebral artery is dominant. There is no aneurysm, high-grade stenosis, or focal vessel cut off seen throughout the intracranial circulation. Jugular veins: Patent bilaterally. Dural sinuses: Patent. Lung apices: Partially visualized upper lobe lung parenchyma appears clear. Soft tissues: The visualized pharyngeal soft tissues are normal in appearance noting angiographic phase technique. The oropharyngeal airway appears widely patent. The salivary and thyroid glands are normal in appearance. No cervical lymphadenopathy is seen. Skeletal structures: The calvarium appears intact. The cervical spine is within normal limits. Orbits: The bony orbits are intact. Orbital contents are normal as visualized. Sinuses and mastoids: The paranasal sinuses are clear. The mastoid air cells are well pneumatized. IMPRESSION: 1. There is no evidence of hemorrhage, mass effect, or acute territorial ischemia noting angiographic phase technique. 2. Unremarkable CT angiogram of the brain. 3. Unremarkable CT angiogram of the neck. ACT 112: Negative or not required by law. Electronically signed by: Sanjay Ledesma M.D. 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
[2023-09-13] MEDS: amLODIPine BESYLATE 5 MG TAB PO SCH (18:36)
[2023-09-13] MEDS ORDERED: ONDANSETRON INJ 2 MG/ML 2 ML VIAL IV STA (18:58)
--- NOTE | 2023-09-13 19:03 | Magnetic Resonance Report ---
MR brain wo con CLINICAL HISTORY: stroke alert TECHNIQUE: Multiplanar and multisequence MR images of the brain were obtained without intravenous con trast. Comparison: Comparison is made to CT head 09/13/2023 FINDINGS: Tiny focus of restricted diffusion is seen in the right thalamus. The white matter is unremarkable. T he ventricular system is normal in appearance. No mass is seen. There is no mass effect or midline sh ift. There is no evidence of acute intraparenchymal hemorrhage. No extra axial fluid collections are seen. The corpus callosum, pituitary gland, and cerebellar tonsils appear grossly unremarkable. Flow voids of the major intracranial arterial vessels are identified. The imaged portions of the para nasal sinuses, mastoid air cells, and orbits are unremarkable. IMPRESSION: Focal infarct in the right thalamus. No evidence of hemorrhage. ACT 112: Negative or not required by law. Electronically signed by: Sunny Ray M.D. 09/13/2023 7:02 PM
--- NOTE | 2023-09-13 19:07 | XRay Report ---
XR chest 1V portable CLINICAL HISTORY: left-sided chest numness TECHNIQUE: Single frontal radiograph of the chest was obtained. Comparison: None available at the time of this dictation. FINDINGS: No lines and tubes are seen. The cardiomediastinal silhouette is normal. The lungs are clear. No evid ence of pleural effusion or pneumothorax. IMPRESSION: No acute chest disease. ACT 112: Negative or not required by law. Electronically signed by: Sunny Ray M.D. 09/13/2023 7:05 PM
[2023-09-13] MEDS ORDERED: hydrALAZINE HCL 20 MG/ML VIAL IV ONE (19:19)
--- NOTE | 2023-09-13 19:19 | Communication Note ---
Date of Service: September 13, 2023 48 YOM presents with stroke like symptoms and post TNK administration earlier today. On arrival to the ICU patient complaining of 10/10 bifrontal headache that he states has been getting progressively worse since arrival. This was followed by emesis and is associated with photophobia and nausea. He is left sided weakness and with photophobia, and decreased sensation on the left upper and lower legs, pupils are brisk 3/2 without vision changes. - Stat non-con head CT obtained- interpreted by [facility] as follows- Brain: Unremarkable. No hemorrhage. No significant white matter IMPRESSION: Normal head/brain CT Electronically signed by: Néstor Pichardo MD 09/13/23 20:00 PM - Will continue with BP control currently 190s/110 - SPo2 90 % room air - place supplemental oxygen keep SPo2 >95% - MRI is with right thalamic stroke - BP Control with <185/105 - HR 60s currently - 5mg Hydralazine IV and if needed restart Cardene infusion (currently on hold) [facility] ([facility]
[2023-09-13] MEDS ORDERED: LABETALOL HCL IV 5 MG/ML 20ML IV PRN (19:24)
[2023-09-13] MEDS ORDERED: ACETAMINOPHEN 325 MG TAB PO PRN (19:26)
[2023-09-13] MEDS ORDERED: ACETAMINOPHEN 1,000 MG/100 ML VIAL IV STA (19:29)
--- NOTE | 2023-09-13 20:01 | CT Scan Report ---
Exam(s): CT HEAD Without Contrast EXAM: CT Head Without Intravenous Contrast CLINICAL HISTORY: Reason for exam: eval for hemorrhage post TNK. TECHNIQUE: Axial computed tomography images of the head/brain without intravenous contrast. CTDI is 52.31 mGy and DLP is 873.18 mGy-cm. Automated exposure control was utilized for the study. A dose lowering technique was utilized adhering to the principles of ALARA. COMPARISON: September 13, 2023 at 1455 hrs. FINDINGS: Brain: Unremarkable. No hemorrhage. No significant white matter disease. No edema. Ventricles: Unremarkable. No ventriculomegaly. Bones/joints: Unremarkable. No acute fracture. Soft tissues: Unremarkable. Sinuses: Unremarkable as visualized. No acute sinusitis. Mastoid air cells: Unremarkable as visualized. No mastoid effusion. IMPRESSION: Normal head/brain CT. Electronically signed by: Néstor Pichardo MD 09/13/23 20:00 PM
[2023-09-13] MEDS: hydrALAZINE HCL 20 MG/ML VIAL IV PRN ×2 (20:14→23:44)
[2023-09-13] MEDS: DIVALPROEX DELAY RELEASE 500 MG TAB PO SCH (20:14)
[2023-09-13] MEDS ORDERED: METOPROLOL TARTRATE 50 MG TAB PO SCH (21:00)
[2023-09-13] MEDS: METOPROLOL TARTRATE 25 MG TAB PO SCH (21:08)
[2023-09-13] MEDS: ICU Protocol for HYPERglycemia SCH (21:38)
[2023-09-14 05:03] LABS: Basophils # (auto) 0.02 K/uL (0.00-0.20); Basophils % (auto) 0.2 %; Hematocrit (blood only) 46.4 % (42.0-52.0); Hemoglobin 16.5 g/dl (14.0-18.0); Immature Granulocytes # (auto) 0.02 K/uL (0.01-0.20); Immature Granulocytes % (auto) 0.2 %; Lymphocytes # (auto) 0.99 K/uL (1.20-3.40); Lymphocytes % (auto) 11.6 %; Mean Corpuscular Hemoglobin 29.8 pg (25.0-34.0); Mean Corpuscular Hgb Conc 35.6 g/dL (32.0-36.0); Mean Corpuscular Volume 83.8 fL (80.0-100.0); Mean Platelet Volume 10.2 fL (9.4-12.4); Monocytes # (auto) 0.53 K/uL (0.11-0.59); Monocytes % (auto) 6.2 %; Neutrophils # (auto) 6.95 K/uL (1.40-6.50); Neutrophils % (auto) 81.8 %; Platelet Count 260 K/uL (130-400); RDW Coefficient of Variation 13.2 % (11.5-14.5); RDW Standard Deviation 39.9 fL (36.4-46.3); Red Blood Count 5.54 M/uL (4.70-6.10); White Blood Count 8.51 K/ul (4.8-10.8)
[2023-09-14 05:21] LABS: Albumin Globulin Ratio 1.2 (0.9-2); Albumin Level 4.5 gm/dl (3.4-5.0); BUN Creatinine Ratio 16.1 (10-20); Bilirubin,Total 1.1 mg/dl (0.2-1.0); Calcium 9.7 mg/dl (8.6-10.3); Chol HDL Ratio 3.9 (0-5); Est GFR (African American) 112.1 ml/min; Est GFR (Non-African American) 96.7 ml/min; Globulin 3.9 gm/dl (2.5-4.0); Magnesium 1.7 mg/dl (1.7-2.4); Potassium 3.9 mmol/L (3.5-5.1); Total Protein 8.4 gm/dl (6.0-8.3)
[2023-09-14 05:43] LABS: INR 1.1 (0.9-1.1); Prothrombin Time 11.7 Seconds (9.0-12.0)
[2023-09-14] MEDS: ICU Protocol for HYPERglycemia SCH ×4 (06:50→20:50)
[2023-09-14 07:35] LABS: Estimated Average Glucose 117 mg/dl; Hemoglobin A1C 5.7 % (4.5-5.6)
--- NOTE | 2023-09-14 07:57 | Critical Care Progress Note ---
Date of Service September 14, 2023 Assessment & Plan (1) tPA adm status 24 hr [facility] [employer]: (2) Acute CVA (cerebrovascular accident): (3) HTN (hypertension): (4) Seizures: (5) Schizophrenia spectrum disorder with psychotic disorder type not yet determined: Plan Impression: 48-year-old male inmate with schizophrenia admitted with neurological complaints concerning enough to receive systemic thrombolytics in the emergency room. MRI demonstrated thalamic stroke. Patient's been weaned off Cardene. Recommendations: 1. Status post systemic thrombolytics. Follow-up CT scan at 4:00 today. If negative, can transfer to the telemetry floor 2. Neurology consulted and recommendations given. MRI-brain showed small infarct in r. thalamus. Will need PT and OT evaluations. Advancing diet. Out of bed to chair as tolerated. 3. Hypertension: Restarted amlodipine and metoprolol; metoprolol tartrate dose increased to 50 mg, PO, BID this morning. Off Cardene. 4. Schizophrenia: Continue Abilify and Benadryl. 5. History of seizure disorder: No evidence of seizures identified. Continue home Depakote medication. Will observe in the ICU for bleeding complications associated with TNK. If MRI of the brain is abnormal, may consider additional imaging studies or additional intervention. Otherwise follow-up CT scan in 24 hours. Admission and Anticipated Discharge Date Admission Date: September 13, 2023 Supervising Physician Co-Signing Physician Notes Patient seen and examined. EMR reviewed. Discussed with overnight critical care OSKAR as well as with bedside critical care nurse and on multidisciplinary rounds and with family practice resident. Agree with assessment plan as noted. Follow-up CT scan scheduled at 4:00 today. If no evidence of bleeding, will initiate dual antiplatelet therapy with Plavix and aspirin. PT and OT evaluations pending. Continue metoprolol and amlodipine. Target blood pressure as noted by neurology. Continuing his outpatient schizophrenia medications. No evidence of seizure. Anticipate if the patient CT scan at 4:00 shows no evidence of hemorrhage, he can transfer to the floor under the care of the hospitalist and critical care services will sign off. Feel free to contact us with questions or concerns Subjective Patient is feeling better this morning in general: noticeably less weak on left side, less of a feeling of numbness on left side, headache had resolved before returning upon administration of Abilify this morning. Patient is not confused/doesn't demonstrate altered mental status, denies any vision changes/disturbances, shortness of breath, chest pain. Review of Systems Eyes: no diplopia, not seeing flashes and no worsening vision Respiratory: no cough, no chest congestion and no dyspnea Cardiovascular: no chest pain and no palpitations Gastrointestinal: no abdominal pain, no nausea, no vomiting, no constipation and no diarrhea/loose stools Neurologic: + localized weakness (left LE, left UE; improved this morning compared to yesterday), + numbness (left LE, UE; improved this morning compared to yesterday) and + headache(s) (GARCIA had resolved but returned w/ Abilify this morning); no seizure-like activity, no abnormal speech and no confusion Physical Exam Constitutional: WD/WN, vitals as above Eyes: PERRL and EOM intact bilaterally Neck: no bruits heard on auscultation Respiratory: normal respiratory effort, lungs clear to auscultation Cardiovascular: RRR, no murmur, no edema Gastrointestinal (Abdomen): normal bowel sounds, soft, nontender, no hepatosplenomegaly Neurologic: normal touch/pain/proprioception, CN's II-XI intact bilaterally, moves all extremities (patient's strength, 5/5 bilaterally, ankle, knee, hip extension/flexion UE) and awake Motor/Sensory: normal movement and no sensory deficit Cranial Nerves: PERRL, normal accommodation, EOM intact bilaterally, normal facial strength, tongue midline, normal hearing, able to rotate head bilaterally and able to elevate shoulders bilaterally Psychiatric: A+Ox3, euthymic affect Eye Contact: + poor eye contact Results & Data Results & Data Vital Signs (Past 12 Hours) Vital Signs Temp Pulse Pulse Resp BP BP BP 09/14/23 07:10 37.3 C 91 H 20 149/80 H 09/14/23 06:10 36.9 C 98 H 24 147/89 H 09/14/23 05:40 99 H 5 L 09/14/23 05:30 96 H 0 L 09/14/23 05:20 95 H 0 L 09/14/23 05:10 97 H 0 L 09/14/23 05:00 98 H 0 L 09/14/23 04:59 36.9 C 98 H 24 168/73 H 09/14/23 04:50 100 H 0 L 09/14/23 04:45 98 H 0 L 09/14/23 04:45 168/73 H 09/14/23 04:40 100 H 0 L 09/14/23 04:30 102 H 0 L 09/14/23 04:30 138/91 09/14/23 04:20 109 H 09/14/23 04:15 147/88 H 09/14/23 04:15 101 H 09/14/23 04:10 99 H 09/14/23 04:00 145/90 H 09/14/23 04:00 100 H 0 L 09/14/23 03:59 36.8 C 100 H 25 H 145/90 H 09/14/23 03:50 101 H 0 L 09/14/23 03:45 149/86 H 09/14/23 03:45 103 H 0 L 09/14/23 03:40 103 H 0 L 09/14/23 03:30 176/97 H 09/14/23 03:30 102 H 20 176/97 H 09/14/23 03:20 101 H 0 L 09/14/23 03:15 169/84 H 09/14/23 03:15 103 H 0 L 09/14/23 03:10 102 H 0 L 09/14/23 03:00 146/82 H 09/14/23 03:00 101 H 0 L 09/14/23 02:59 36.9 C 102 H 22 146/82 H 09/14/23 02:50 102 H 0 L 09/14/23 02:45 138/87 09/14/23 02:45 103 H 0 L 09/14/23 02:40 101 H 0 L 09/14/23 02:30 145/88 H 09/14/23 02:30 98 H 0 L 09/14/23 02:20 104 H 0 L 09/14/23 02:15 155/85 H 09/14/23 02:15 105 H 09/14/23 02:10 103 H 09/14/23 02:00 106 H 09/14/23 02:00 151/81 H 09/14/23 01:59 36.8 C 106 H 21 151/81 H 09/14/23 01:50 103 H 0 L 09/14/23 01:45 163/83 H 09/14/23 01:45 103 H 0 L 09/14/23 01:40 102 H 0 L 09/14/23 01:30 189/89 H 09/14/23 01:30 100 H 0 L 09/14/23 01:20 99 H 0 L 09/14/23 01:15 98 H 0 L 09/14/23 01:15 177/92 H 09/14/23 01:10 94 H 0 L 09/14/23 01:01 178/97 H 09/14/23 01:01 98 H 0 L 09/14/23 01:00 99 H 0 L 09/14/23 00:59 36.9 C 98 H 26 H 178/97 H 09/14/23 00:55 92 H 09/14/23 00:50 98 H 0 L 09/14/23 00:45 162/97 H 09/14/23 00:45 98 H 0 L 09/14/23 00:40 96 H 0 L 09/14/23 00:30 96 H 0 L 09/14/23 00:30 178/97 H 09/14/23 00:20 94 H 23 09/14/23 00:10 90 09/14/23 00:00 36.8 C 209/97 H 09/14/23 00:00 87 09/13/23 23:59 36.8 C 89 18 209/97 H 09/13/23 23:50 83 09/13/23 23:40 36.8 C 81 0 L 09/13/23 23:36 188/97 H 09/13/23 23:36 85 1 L 09/13/23 23:35 206/93 H 09/13/23 23:35 75 0 L 09/13/23 23:30 79 0 L 09/13/23 23:29 85 24 188/97 H 09/13/23 23:20 90 3 L 09/13/23 23:10 80 0 L 09/13/23 23:00 159/106 H 09/13/23 23:00 87 0 L 09/13/23 22:59 80 24 159/106 H 09/13/23 22:50 76 0 L 09/13/23 22:40 78 0 L 09/13/23 22:30 173/99 H 09/13/23 22:30 80 0 L 09/13/23 22:29 36.8 C 78 22 173/99 H 09/13/23 22:20 72 09/13/23 22:10 75 09/13/23 22:00 166/106 H 09/13/23 22:00 75 6 L 09/13/23 21:59 09/13/23 21:50 72 12 09/13/23 21:45 76 20 09/13/23 21:45 169/99 H 09/13/23 21:40 67 18 09/13/23 21:30 170/105 H 09/13/23 21:30 36.8 C 73 22 09/13/23 21:20 68 26 H 09/13/23 21:15 180/101 H 09/13/23 21:15 77 22 09/13/23 21:10 74 20 09/13/23 21:00 72 09/13/23 21:00 36.8 C 169/99 H 09/13/23 21:00 72 27 H 09/13/23 20:59 36.8 C 72 27 H 169/99 H 09/13/23 20:50 74 10 L 09/13/23 20:45 158/99 H 09/13/23 20:45 75 27 H 09/13/23 20:40 72 28 H 09/13/23 20:30 36.8 C 170/102 H 09/13/23 20:30 73 25 H 09/13/23 20:29 36.8 C 72 28 H 170/102 H 09/13/23 20:20 72 25 H 09/13/23 20:15 173/104 H 09/13/23 20:15 70 17 09/13/23 20:10 67 24 09/13/23 20:00 172/108 H 09/13/23 20:00 74 29 H 09/13/23 20:00 22 09/13/23 19:59 37.0 C 74 28 H 172/108 H Pulse Ox O2 Del Method O2 Flow Rate 09/14/23 07:10 96 Nasal Cannula 3 09/14/23 06:10 95 Nasal Cannula 3 09/14/23 05:40 95 09/14/23 05:30 94 09/14/23 05:20 94 09/14/23 05:10 95 09/14/23 05:00 94 09/14/23 04:59 95 Nasal Cannula 3 09/14/23 04:50 94 09/14/23 04:45 93 09/14/23 04:45 09/14/23 04:40 93 09/14/23 04:30 94 09/14/23 04:30 09/14/23 04:20 95 09/14/23 04:15 09/14/23 04:15 94 09/14/23 04:10 93 09/14/23 04:00 09/14/23 04:00 94 09/14/23 03:59 94 Nasal Cannula 2 09/14/23 03:50 93 09/14/23 03:45 09/14/23 03:45 93 09/14/23 03:40 93 09/14/23 03:30 09/14/23 03:30 95 09/14/23 03:20 94 09/14/23 03:15 09/14/23 03:15 94 09/14/23 03:10 93 09/14/23 03:00 09/14/23 03:00 93 09/14/23 02:59 95 Nasal Cannula 2 09/14/23 02:50 93 09/14/23 02:45 09/14/23 02:45 93 09/14/23 02:40 92 09/14/23 02:30 09/14/23 02:30 93 09/14/23 02:20 93 09/14/23 02:15 09/14/23 02:15 92 09/14/23 02:10 92 09/14/23 02:00 93 09/14/23 02:00 09/14/23 01:59 93 Nasal Cannula 2 09/14/23 01:50 93 09/14/23 01:45 09/14/23 01:45 94 09/14/23 01:40 93 09/14/23 01:30 09/14/23 01:30 93 09/14/23 01:20 94 09/14/23 01:15 94 09/14/23 01:15 09/14/23 01:10 93 09/14/23 01:01 09/14/23 01:01 93 09/14/23 01:00 93 09/14/23 00:59 94 Nasal Cannula 2 09/14/23 00:55 09/14/23 00:50 94 09/14/23 00:45 09/14/23 00:45 94 09/14/23 00:40 94 09/14/23 00:30 94 09/14/23 00:30 09/14/23 00:20 94 09/14/23 00:10 95 09/14/23 00:00 09/14/23 00:00 94 09/13/23 23:59 95 Nasal Cannula 2 09/13/23 23:50 94 09/13/23 23:40 94 09/13/23 23:36 09/13/23 23:36 95 09/13/23 23:35 09/13/23 23:35 94 09/13/23 23:30 95 09/13/23 23:29 95 Nasal Cannula 2 09/13/23 23:20 92 09/13/23 23:10 94 09/13/23 23:00 09/13/23 23:00 92 09/13/23 22:59 95 Nasal Cannula 2 09/13/23 22:50 94 09/13/23 22:40 94 09/13/23 22:30 09/13/23 22:30 94 09/13/23 22:29 95 Nasal Cannula 2 09/13/23 22:20 93 09/13/23 22:10 94 09/13/23 22:00 09/13/23 22:00 93 09/13/23 21:59 Nasal Cannula 2 09/13/23 21:50 94 09/13/23 21:45 94 09/13/23 21:45 09/13/23 21:40 97 09/13/23 21:30 09/13/23 21:30 93 09/13/23 21:20 95 09/13/23 21:15 09/13/23 21:15 94 09/13/23 21:10 95 09/13/23 21:00 09/13/23 21:00 09/13/23 21:00 93 09/13/23 20:59 93 Nasal Cannula 2 09/13/23 20:50 94 09/13/23 20:45 09/13/23 20:45 93 09/13/23 20:40 94 09/13/23 20:30 09/13/23 20:30 93 09/13/23 20:29 94 Nasal Cannula 2 09/13/23 20:20 94 09/13/23 20:15 09/13/23 20:15 94 09/13/23 20:10 94 09/13/23 20:00 09/13/23 20:00 91 09/13/23 20:00 09/13/23 19:59 95 Nasal Cannula 2
[2023-09-14] MEDS: METOPROLOL TARTRATE 25 MG TAB PO SCH ×2 (08:17→21:23)
[2023-09-14] MEDS: amLODIPine BESYLATE 5 MG TAB PO SCH (08:17)
[2023-09-14] MEDS: DIVALPROEX DELAY RELEASE 500 MG TAB PO SCH ×2 (08:17→21:24)
[2023-09-14] MEDS: ARIPIprazole 1 MG/ML ORAL SOLN 150 ML BTL PO SCH (08:17)
[2023-09-14] MEDS ORDERED: ARIPiprazole 5 MG TAB PO SCH (09:00)
[2023-09-14] MEDS ORDERED: amLODIPine BESYLATE 5 MG TAB PO SCH (09:00)
--- NOTE | 2023-09-14 09:50 | Neurology Consultation ---
Date of Consultation September 14, 2023 Assessment & Plan (1) Acute CVA (cerebrovascular accident): History of Present Illness Attending Physician: Rosy Newman MD History of Present Illness HPI:pt with acute left side weakness yesterday. [facility] he had TNKase after discussion with teleneurology care transitions manager yesterday at 1556. pt is ICU currently and stable and mri brain showing acute small rt thalamic ischemic stroke. pt currently only having left side numbness and no weakness. his BP now stable from initial SBP in 200s. no suggestion of bleed. admission HPI: John is a 48 year old male inmate of [employer] [facility] [place] with a PMH significant for seizure disorder, HTN, and schizophrenia who presented to the [facility] ED via EMS on 09/13/23 for acute onset of left sided weakness. Per the ED staff the patients last known well was approximately 1245 this afternoon. On arrival the patient was noted to be significantly hypertensive at 248/71 but otherwise stable. Labs were significant for a total bili of 1.1, and decreased valproic acid level of 11. CT of the head wo con and CTA of the head/neck were read as negative for acute findings. The patient was initially given 2 doses of 10 mg of IV labetalol. Per the ED staff, they spoke with the [facility] Telestroke provider who recommended TNK administration after controlling the patients blood pressure. The patient was started on a Nicardipine drip at 5 mg/hr and 25 mg of IV Tenecteplase was administered at 1556. At the time of the exam the patient was sitting in bed in no acute distress. He states that he woke in his normal state of health without any complaints. He was in his cell watching TV around 1245 when he experienced an acute onset of lightheadedness with left sided facial, LUE, and LLE numbness with weakness. He opened his window and laid on his bed but symptoms persisted so he was sent to the [facility]. He states that he did have his am medications including 5 mg Amlodipine and 50 mg Metoprolol Tartrate. He states that he was given 100 mg of another PO medication but is unsure of the name. At this time he states that he is experiencing a headache and his left sided numbness with LUE and LLE weakness have not changed. He denies current tobacco use. He currently denies changes in vision, hearing, taste, smell, chest pain, SOB, cough, abd pain, nausea, vomiting, diarrhea, dysuria, hematuria, melena, LE swelling, and recent trauma. [facility] to obtain further information. They confirm that he had all his am medications including his amlodipine, metoprolol, Abilify, and am dose of Depakote. They also confirmed that the patient was given 100 mg PO Labetalol prior to EMS arrival. Allergies Allergy/AdvReac Type Severity Reaction Status Date / Time acetaminophen Allergy Unknown ON SCI Verified 09/13/23 15:09 [facility] MED LIST aspirin Allergy Unknown ON SCI Verified 09/13/23 15:10 [From Excedrin Migraine] [facility] MED LIST caffeine Allergy Unknown ON SCI Verified 09/13/23 15:10 [From Excedrin Migraine] LETITIA [facility] MED LIST chlorpromazine Allergy Unknown ON SCI Verified 09/13/23 15:09 [facility] [employer] MED L[facility] Home Medications Medication Instructions Recorded Confirmed Type amlodipine 5 mg tablet 5 mg PO DAILY 09/13/23 09/13/23 History aripiprazole 2 mg tablet (Abilify) 2 mg PO DAILY 09/13/23 09/13/23 History aripiprazole 5 mg tablet (Abilify) 5 mg PO DAILY 09/13/23 09/13/23 History diphenhydramine HCl 50 mg capsule 50 mg PO BID 09/13/23 09/13/23 History divalproex 250 mg tablet,delayed 1,000 mg PO BID 09/13/23 09/13/23 History release (Depakote) metoprolol tartrate 50 mg tablet 50 mg PO BID 09/13/23 09/13/23 History Patient History Social History Smoking Status: Former smoker Hx Alcohol Use: No Hx Substance Use: No Preferred Language: Kyrgyz Communication Ability: Effective Insole Stiffener Required: No Beliefs That Will Affect Care: None Current Living Situation: Other Current Living Situation Comment: [place] Feels Safe at Home: Yes and Hesitant to Answer Review of Systems Review of Systems: All systems reviewed & are unremarkable except as noted in Subjective Constitutional: as per Subjective / HPI Eyes: as per Subjective / HPI Ear, Nose, Mouth, Throat: as per Subjective / HPI Respiratory: as per Subjective / HPI Cardiovascular: as per Subjective / HPI Gastrointestinal: as per Subjective / HPI Musculoskeletal: as per Subjective / HPI Integumentary: as per Subjective / HPI Neurologic: as per Subjective / HPI Psychiatric: as per Subjective / HPI Endocrine: as per Subjective / HPI Hematologic / Lymphatic: as per Subjective / HPI Allergy / Immunological: as per Subjective / HPI Exam (Neuro) Physical Exam: HEENT: normocephalic Neuro: Mental: AOx4, fluent speech, normal comprehension, no apraxia, no L/R confusion, no neglect CN: PERRL, Full EOM, symmetric face, , midline T/U/P, 5/5 SCM/traps. Motor: No abnormal movements, normal tone and bulk, 5/5 t/o bilaterally Sens:decrease to touch left face, arm ,leg Coord: intact DTR: 2+ sym b/l, toes down b/l Gait: deferred. Impression: 48 yo male s/p TNKase, with acute left hemiparesthesia in setting of HTN urgency and small ischemic rt thalamic stroke. Pt overall stable. pt with hx of seizure on depakote, his level today is WNL. Recommendations: 1. Standard stroke work up as planned an d post TNKase monitoring. 2. antiplatelet therapy: after 24 hrs fr om TNKase and negative CT head * DAPT (dual antiplatelet therapy): start for pts with ABCD2 score 4 or higher. Initial loading dose with ASA 325mg and Plavix 300mg (if pt has not been started), then ASA 81mg daily and Plavix 75mg daily. Continue DAPT for 21 days if found small vessel disease only or continue for 90 days if found to have intracranial large artery atherosclerosis. After that, can continue single antiplatelet therapy (either ASA or Plavix). 3. Images: TTE with bubble, noncon CT h ead as planned for post TNKase. 4. Permissive Hypertension for next 24-4 8 hrs. Keep SBP goal range less than 180. Avoid hypotension. Do not stop beta-diomedes if on it. 5. If noted for large intracranial vesse l stenosis, slow reduction of BP and allowing permissive HTN next 5-7 days. 6. Long-term SBP goal less than 130. 7. Plenty of hydration including IV flui d if possible (use isotonic solution) next 1-2 days. Avoid hypovolemia and hypotension. 8. Initiate DVT prevention therapy. 9. Avoid hypoglycemia, serum glucose goa l during hospitalization: 140-180. 10. Long-term HgA1c goal less than 7. 11. Start statin if not on it and no abs olute contraindication, long-term LDL goal less than 70. 12. Head of bed up 30 degrees if possibl e. 13. Stroke education by nursing and appr opriate staff. 14. Telemetry monitoring. Consider long-term cardiac monitoring, i.e. MCOT (mobile cardiac outpatient telemetry) or ICM (insertable youth accommodation support worker, e.g. LINQ), if never had truck terminal manager cardiac monitoring done previously. And if found to have atrial flutter or fibrillation, should consider anticoagulation therapy if no contraindication. 15. Fall precaution and aspiration preca ution. 16. Consult physical and occupational th erapy no need to change his seizure meds at this point. seizure precaution. Chart reviewed I have spent more than 50% educating patient about potential diagnosis and neurological evaluation and coordinating care with patient's treatment team. Total time spent (including chart review and coordination of care): 80 min (this includes chart review). Results & Data Vital Signs (Past 12 Hours) Vital Signs Temp Pulse Pulse Resp BP BP BP 09/14/23 09:36 66 163/106 H 09/14/23 09:30 61 09/14/23 09:20 67 09/14/23 09:19 64 09/14/23 09:19 163/106 H 09/14/23 09:16 64 09/14/23 09:16 171/123 H 09/14/23 09:10 67 09/14/23 09:01 78 11 L 09/14/23 09:01 197/143 H 09/14/23 09:00 78 4 L 09/14/23 09:00 37 C 69 18 163/106 H 09/14/23 08:50 65 09/14/23 08:40 77 9 L 09/14/23 08:37 09/14/23 08:35 09/14/23 08:30 88 09/14/23 08:20 94 H 09/14/23 08:10 93 H 09/14/23 08:00 160/91 H 09/14/23 08:00 94 H 09/14/23 08:00 92 H 09/14/23 07:59 77 20 160/91 H 09/14/23 07:50 94 H 09/14/23 07:40 95 H 16 09/14/23 07:30 96 H 09/14/23 07:20 90 09/14/23 07:14 20 149/80 H 09/14/23 07:14 89 09/14/23 07:10 93 H 09/14/23 07:10 37.3 C 91 H 20 149/80 H 09/14/23 07:00 96 H 09/14/23 06:10 36.9 C 98 H 24 147/89 H 09/14/23 05:40 99 H 5 L 09/14/23 05:30 96 H 0 L 09/14/23 05:20 95 H 0 L 09/14/23 05:10 97 H 0 L 09/14/23 05:00 98 H 0 L 09/14/23 04:59 36.9 C 98 H 24 168/73 H 09/14/23 04:50 100 H 0 L 09/14/23 04:45 98 H 0 L 09/14/23 04:45 168/73 H 09/14/23 04:40 100 H 0 L 09/14/23 04:30 102 H 0 L 09/14/23 04:30 138/91 09/14/23 04:20 109 H 09/14/23 04:15 147/88 H 09/14/23 04:15 101 H 09/14/23 04:10 99 H 09/14/23 04:00 145/90 H 09/14/23 04:00 100 H 0 L 09/14/23 03:59 36.8 C 100 H 25 H 145/90 H 09/14/23 03:50 101 H 0 L 09/14/23 03:45 149/86 H 09/14/23 03:45 103 H 0 L 09/14/23 03:40 103 H 0 L 09/14/23 03:30 176/97 H 09/14/23 03:30 102 H 20 176/97 H 09/14/23 03:20 101 H 0 L 09/14/23 03:15 169/84 H 09/14/23 03:15 103 H 0 L 09/14/23 03:10 102 H 0 L 09/14/23 03:00 146/82 H 09/14/23 03:00 101 H 0 L 09/14/23 02:59 36.9 C 102 H 22 146/82 H 09/14/23 02:50 102 H 0 L 09/14/23 02:45 138/87 09/14/23 02:45 103 H 0 L 09/14/23 02:40 101 H 0 L 09/14/23 02:30 145/88 H 09/14/23 02:30 98 H 0 L 09/14/23 02:20 104 H 0 L 09/14/23 02:15 155/85 H 09/14/23 02:15 105 H 09/14/23 02:10 103 H 09/14/23 02:00 106 H 09/14/23 02:00 151/81 H 09/14/23 01:59 36.8 C 106 H 21 151/81 H 09/14/23 01:50 103 H 0 L 09/14/23 01:45 163/83 H 09/14/23 01:45 103 H 0 L 09/14/23 01:40 102 H 0 L 09/14/23 01:30 189/89 H 09/14/23 01:30 100 H 0 L 09/14/23 01:20 99 H 0 L 09/14/23 01:15 98 H 0 L 09/14/23 01:15 177/92 H 09/14/23 01:10 94 H 0 L 09/14/23 01:01 178/97 H 09/14/23 01:01 98 H 0 L 09/14/23 01:00 99 H 0 L 09/14/23 00:59 36.9 C 98 H 26 H 178/97 H 09/14/23 00:55 92 H 09/14/23 00:50 98 H 0 L 09/14/23 00:45 162/97 H 09/14/23 00:45 98 H 0 L 09/14/23 00:40 96 H 0 L 09/14/23 00:30 96 H 0 L 09/14/23 00:30 178/97 H 09/14/23 00:20 94 H 23 09/14/23 00:10 90 09/14/23 00:00 36.8 C 209/97 H 09/14/23 00:00 87 09/13/23 23:59 36.8 C 89 18 209/97 H 09/13/23 23:50 83 09/13/23 23:40 36.8 C 81 0 L 09/13/23 23:36 188/97 H 09/13/23 23:36 85 1 L 09/13/23 23:35 206/93 H 09/13/23 23:35 75 0 L 09/13/23 23:30 79 0 L 09/13/23 23:29 85 24 188/97 H 09/13/23 23:20 90 3 L 09/13/23 23:10 80 0 L 09/13/23 23:00 159/106 H 09/13/23 23:00 87 0 L 09/13/23 22:59 80 24 159/106 H 09/13/23 22:50 76 0 L 09/13/23 22:40 78 0 L 09/13/23 22:30 173/99 H 09/13/23 22:30 80 0 L 09/13/23 22:29 36.8 C 78 22 173/99 H 09/13/23 22:20 72 09/13/23 22:10 75 09/13/23 22:00 166/106 H 09/13/23 22:00 75 6 L 09/13/23 21:59 09/13/23 21:50 72 12 Pulse Ox O2 Del Method O2 Flow Rate 09/14/23 09:36 09/14/23 09:30 91 09/14/23 09:20 09/14/23 09:19 91 09/14/23 09:19 09/14/23 09:16 91 09/14/23 09:16 09/14/23 09:10 91 Nasal Cannula 3 09/14/23 09:01 94 09/14/23 09:01 09/14/23 09:00 94 09/14/23 09:00 94 Nasal Cannula 3 09/14/23 08:50 93 09/14/23 08:40 94 09/14/23 08:37 Nasal Cannula 09/14/23 08:35 Nasal Cannula 3 09/14/23 08:30 94 09/14/23 08:20 94 09/14/23 08:10 92 09/14/23 08:00 09/14/23 08:00 93 Nasal Cannula 3 09/14/23 08:00 09/14/23 07:59 95 Nasal Cannula 3 09/14/23 07:50 92 09/14/23 07:40 94 09/14/23 07:30 95 09/14/23 07:20 93 09/14/23 07:14 09/14/23 07:14 94 09/14/23 07:10 93 09/14/23 07:10 96 Nasal Cannula 3 09/14/23 07:00 93 09/14/23 06:10 95 Nasal Cannula 3 09/14/23 05:40 95 09/14/23 05:30 94 09/14/23 05:20 94 09/14/23 05:10 95 09/14/23 05:00 94 09/14/23 04:59 95 Nasal Cannula 3 09/14/23 04:50 94 09/14/23 04:45 93 09/14/23 04:45 09/14/23 04:40 93 09/14/23 04:30 94 09/14/23 04:30 09/14/23 04:20 95 09/14/23 04:15 09/14/23 04:15 94 09/14/23 04:10 93 09/14/23 04:00 09/14/23 04:00 94 09/14/23 03:59 94 Nasal Cannula 2 09/14/23 03:50 93 09/14/23 03:45 09/14/23 03:45 93 09/14/23 03:40 93 09/14/23 03:30 09/14/23 03:30 95 09/14/23 03:20 94 09/14/23 03:15 09/14/23 03:15 94 09/14/23 03:10 93 09/14/23 03:00 09/14/23 03:00 93 09/14/23 02:59 95 Nasal Cannula 2 09/14/23 02:50 93 09/14/23 02:45 09/14/23 02:45 93 09/14/23 02:40 92 09/14/23 02:30 09/14/23 02:30 93 09/14/23 02:20 93 09/14/23 02:15 09/14/23 02:15 92 09/14/23 02:10 92 09/14/23 02:00 93 09/14/23 02:00 09/14/23 01:59 93 Nasal Cannula 2 09/14/23 01:50 93 09/14/23 01:45 09/14/23 01:45 94 09/14/23 01:40 93 09/14/23 01:30 09/14/23 01:30 93 09/14/23 01:20 94 09/14/23 01:15 94 09/14/23 01:15 09/14/23 01:10 93 09/14/23 01:01 09/14/23 01:01 93 09/14/23 01:00 93 09/14/23 00:59 94 Nasal Cannula 2 09/14/23 00:55 09/14/23 00:50 94 09/14/23 00:45 09/14/23 00:45 94 09/14/23 00:40 94 09/14/23 00:30 94 09/14/23 00:30 09/14/23 00:20 94 09/14/23 00:10 95 09/14/23 00:00 09/14/23 00:00 94 09/13/23 23:59 95 Nasal Cannula 2 09/13/23 23:50 94 09/13/23 23:40 94 09/13/23 23:36 09/13/23 23:36 95 09/13/23 23:35 09/13/23 23:35 94 09/13/23 23:30 95 09/13/23 23:29 95 Nasal Cannula 2 09/13/23 23:20 92 09/13/23 23:10 94 09/13/23 23:00 09/13/23 23:00 92 09/13/23 22:59 95 Nasal Cannula 2 09/13/23 22:50 94 09/13/23 22:40 94 09/13/23 22:30 09/13/23 22:30 94 09/13/23 22:29 95 Nasal Cannula 2 09/13/23 22:20 93 09/13/23 22:10 94 09/13/23 22:00 09/13/23 22:00 93 09/13/23 21:59 Nasal Cannula 2 09/13/23 21:50 94 PG Care Time/CCT Total # of Minutes Spent Total Time Spent with Patient: Total time spent is greater than 50% in coordination of care (as documented) at patient's floor/unit and/or counseling patient: Coding Level of Care Code 68927 IN/OBS CONSULT LVL 5,80M Diagnoses Acute CVA (cerebrovascular accident) I63.9
[2023-09-14] MEDS ORDERED: METOPROLOL TARTRATE 25 MG TAB PO STA (09:53)
--- NOTE | 2023-09-14 10:54 | XCELERA ---
[id number] [id number]
--- NOTE | 2023-09-14 11:49 | Billing Data ---
Date of Service September 14, 2023 Coding Level of Care Code 76364 SUB INP/OBS CARE MIN
--- NOTE | 2023-09-14 11:59 | Medical Student Progress Note ---
Date of Service September 14, 2023 Assessment & Plan (1) Left-sided weakness: Plan: -Due to CVA -Presented to the ED via EMS on 09/13 with acute onset of left sided weakness/numbness in the facial and left extremities -Stroke alert called in the ED, CT head and CTA head/neck negative for acute findings -Evaluated by Sarah Telestroke who recommended TNK administration after BP was adequately controlled, patient was in agreement -Patient was given 2 doses of 10 mg IV labetalol and was then started on Nicardipine drip at 5 mg/HR -25 mg of Tenecteplase was administered at 09/13 -Continue Nicardipine drip for now to maintain systolic BP between 150-180 mmhg -Continue to monitor for signs of bleeding -Hold all anticoagulants and antiplatelets for the until 09/14 -q2h neuro checks -Will order TTE for further evaluation -Repeat CT brain wo con 24 hours S/P TNK administration is ordered -Patient passed beside dysphagia screen, will start clears, advance diet as tolerated -Seizure precautions -BL ROBYN's for DVT PPX Per neuro: start DAPT, statin, allow for permissive hypertension (2) Acute CVA (cerebrovascular accident): Plan: small ischemic rt thalamic stroke, same plan as brendon (3) HTN (hypertension): Plan: -Noted to be significantly hypertensive on arrival 09/13 at 248/71 -Currently stable on Nicardipine drip at 5 mg/hr >Continue to titrate for goal systolic BP of 150-180 mmhg -Increased the dose of his am Amlodipine to 10 mg daily starting 09/14 -Continue currently dosing of BID metoprolol (4) History of seizures: Plan: -Patient's Valproic acid level on admission is subtherapeutic at 11 mcg/mL -Confirmed with [facility] that he did have his am dose of 1000 mg Depakote >Given an additional 1000 mg PO Depakote on admission -Continue 1000 mg PO Depakote BID -Recheck level at 73. 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 Acute right thalamic CVA with hypertensive emergency - following post TNK protocol. new addition of statin. will need DAPT. Aggressive BP control as outp atient. Uncontrolled HTN - amlodipine dose increased to 10mgs on admission. unclear of the reason why he is on metoprolol - likely not for BP. consider adding GHAZALA/ARB/HCTZ as second agent if BP stays high. -should also consider sleep study as outpatient considering HTN/high BMI/snoring. sleep apnea increases risk of stroke. SCD Subjective This morning Mr. Green was awake and in bed holding his head. He described a headache localized to frontal, vertex, and occipital. He says he slept well overnight and woke without a headache, but his headache returned after his medications (Abilify) were administered. Review of Systems Review of Systems: As per hpi Physical Exam Physical Exam: Physical Exam: General: Mild Discomfort HEENT: Normocephalic, atraumatic Chest/Pulm: No respiratory distress, symmetrical chest expansion, clear to ascultation bilaterally Cardiac: RRR, no murmurs noted Skin: Warm, dry, no rashes , lesions, or scars noted Neuro: Alert and oriented, no focal defects, CN II-XII tested with decreased sensation on the left face but otherwise intact, strength in the left upper extremity compared to right, no tremors noted Psych: Calm and cooperative during the exam Results & Data Vital Signs (Past 12 Hours) Vital Signs Temp Pulse Pulse Resp BP BP BP 09/14/23 08:10 93 H 09/14/23 08:00 160/91 H 09/14/23 08:00 94 H 09/14/23 07:50 94 H 09/14/23 07:40 95 H 16 09/14/23 07:30 96 H 09/14/23 07:20 90 09/14/23 07:14 20 149/80 H 09/14/23 07:14 89 09/14/23 07:10 93 H 09/14/23 07:10 37.3 C 91 H 20 149/80 H 09/14/23 07:00 96 H 09/14/23 06:10 36.9 C 98 H 24 147/89 H 09/14/23 05:40 99 H 5 L 09/14/23 05:30 96 H 0 L 09/14/23 05:20 95 H 0 L 09/14/23 05:10 97 H 0 L 09/14/23 05:00 98 H 0 L 09/14/23 04:59 36.9 C 98 H 24 168/73 H 09/14/23 04:50 100 H 0 L 09/14/23 04:45 98 H 0 L 09/14/23 04:45 168/73 H 09/14/23 04:40 100 H 0 L 09/14/23 04:30 102 H 0 L 09/14/23 04:30 138/91 09/14/23 04:20 109 H 09/14/23 04:15 147/88 H 09/14/23 04:15 101 H 09/14/23 04:10 99 H 09/14/23 04:00 145/90 H 09/14/23 04:00 100 H 0 L 09/14/23 03:59 36.8 C 100 H 25 H 145/90 H 09/14/23 03:50 101 H 0 L 09/14/23 03:45 149/86 H 09/14/23 03:45 103 H 0 L 09/14/23 03:40 103 H 0 L 09/14/23 03:30 176/97 H 09/14/23 03:30 102 H 20 176/97 H 09/14/23 03:20 101 H 0 L 09/14/23 03:15 169/84 H 09/14/23 03:15 103 H 0 L 09/14/23 03:10 102 H 0 L 09/14/23 03:00 146/82 H 09/14/23 03:00 101 H 0 L 09/14/23 02:59 36.9 C 102 H 22 146/82 H 09/14/23 02:50 102 H 0 L 09/14/23 02:45 138/87 09/14/23 02:45 103 H 0 L 09/14/23 02:40 101 H 0 L 09/14/23 02:30 145/88 H 09/14/23 02:30 98 H 0 L 09/14/23 02:20 104 H 0 L 09/14/23 02:15 155/85 H 09/14/23 02:15 105 H 09/14/23 02:10 103 H 09/14/23 02:00 106 H 09/14/23 02:00 151/81 H 09/14/23 01:59 36.8 C 106 H 21 151/81 H 09/14/23 01:50 103 H 0 L 09/14/23 01:45 163/83 H 09/14/23 01:45 103 H 0 L 09/14/23 01:40 102 H 0 L 09/14/23 01:30 189/89 H 09/14/23 01:30 100 H 0 L 09/14/23 01:20 99 H 0 L 09/14/23 01:15 98 H 0 L 09/14/23 01:15 177/92 H 09/14/23 01:10 94 H 0 L 09/14/23 01:01 178/97 H 09/14/23 01:01 98 H 0 L 09/14/23 01:00 99 H 0 L 09/14/23 00:59 36.9 C 98 H 26 H 178/97 H 09/14/23 00:55 92 H 09/14/23 00:50 98 H 0 L 09/14/23 00:45 162/97 H 09/14/23 00:45 98 H 0 L 09/14/23 00:40 96 H 0 L 09/14/23 00:30 96 H 0 L 09/14/23 00:30 178/97 H 09/14/23 00:20 94 H 23 09/14/23 00:10 90 09/14/23 00:00 36.8 C 209/97 H 09/14/23 00:00 87 09/13/23 23:59 36.8 C 89 18 209/97 H 09/13/23 23:50 83 09/13/23 23:40 36.8 C 81 0 L 09/13/23 23:36 188/97 H 09/13/23 23:36 85 1 L 09/13/23 23:35 206/93 H 09/13/23 23:35 75 0 L 09/13/23 23:30 79 0 L 09/13/23 23:29 85 24 188/97 H 09/13/23 23:20 90 3 L 09/13/23 23:10 80 0 L 09/13/23 23:00 159/106 H 09/13/23 23:00 87 0 L 09/13/23 22:59 80 24 159/106 H 09/13/23 22:50 76 0 L 09/13/23 22:40 78 0 L 09/13/23 22:30 173/99 H 09/13/23 22:30 80 0 L 09/13/23 22:29 36.8 C 78 22 173/99 H 09/13/23 22:20 72 09/13/23 22:10 75 09/13/23 22:00 166/106 H 09/13/23 22:00 75 6 L 09/13/23 21:59 09/13/23 21:50 72 12 09/13/23 21:45 76 20 09/13/23 21:45 169/99 H 09/13/23 21:40 67 18 09/13/23 21:30 170/105 H 09/13/23 21:30 36.8 C 73 22 09/13/23 21:20 68 26 H 09/13/23 21:15 180/101 H 09/13/23 21:15 77 22 09/13/23 21:10 74 20 09/13/23 21:00 72 09/13/23 21:00 36.8 C 169/99 H 09/13/23 21:00 72 27 H 09/13/23 20:59 36.8 C 72 27 H 169/99 H 09/13/23 20:50 74 10 L 09/13/23 20:45 158/99 H 09/13/23 20:45 75 27 H 09/13/23 20:40 72 28 H 09/13/23 20:30 36.8 C 170/102 H 09/13/23 20:30 73 25 H 09/13/23 20:29 36.8 C 72 28 H 170/102 H Pulse Ox O2 Del Method O2 Flow Rate 09/14/23 08:10 92 09/14/23 08:00 09/14/23 08:00 93 Nasal Cannula 3 09/14/23 07:50 92 09/14/23 07:40 94 09/14/23 07:30 95 09/14/23 07:20 93 09/14/23 07:14 09/14/23 07:14 94 09/14/23 07:10 93 09/14/23 07:10 96 Nasal Cannula 3 09/14/23 07:00 93 09/14/23 06:10 95 Nasal Cannula 3 09/14/23 05:40 95 09/14/23 05:30 94 09/14/23 05:20 94 09/14/23 05:10 95 09/14/23 05:00 94 09/14/23 04:59 95 Nasal Cannula 3 09/14/23 04:50 94 09/14/23 04:45 93 09/14/23 04:45 09/14/23 04:40 93 09/14/23 04:30 94 09/14/23 04:30 09/14/23 04:20 95 09/14/23 04:15 09/14/23 04:15 94 09/14/23 04:10 93 09/14/23 04:00 09/14/23 04:00 94 09/14/23 03:59 94 Nasal Cannula 2 09/14/23 03:50 93 09/14/23 03:45 09/14/23 03:45 93 09/14/23 03:40 93 09/14/23 03:30 09/14/23 03:30 95 09/14/23 03:20 94 09/14/23 03:15 09/14/23 03:15 94 09/14/23 03:10 93 09/14/23 03:00 09/14/23 03:00 93 09/14/23 02:59 95 Nasal Cannula 2 09/14/23 02:50 93 09/14/23 02:45 09/14/23 02:45 93 09/14/23 02:40 92 09/14/23 02:30 09/14/23 02:30 93 09/14/23 02:20 93 09/14/23 02:15 09/14/23 02:15 92 09/14/23 02:10 92 09/14/23 02:00 93 09/14/23 02:00 09/14/23 01:59 93 Nasal Cannula 2 09/14/23 01:50 93 09/14/23 01:45 09/14/23 01:45 94 09/14/23 01:40 93 09/14/23 01:30 09/14/23 01:30 93 09/14/23 01:20 94 09/14/23 01:15 94 09/14/23 01:15 09/14/23 01:10 93 09/14/23 01:01 09/14/23 01:01 93 09/14/23 01:00 93 09/14/23 00:59 94 Nasal Cannula 2 09/14/23 00:55 09/14/23 00:50 94 09/14/23 00:45 09/14/23 00:45 94 09/14/23 00:40 94 09/14/23 00:30 94 09/14/23 00:30 09/14/23 00:20 94 09/14/23 00:10 95 09/14/23 00:00 09/14/23 00:00 94 09/13/23 23:59 95 Nasal Cannula 2 09/13/23 23:50 94 09/13/23 23:40 94 09/13/23 23:36 09/13/23 23:36 95 09/13/23 23:35 09/13/23 23:35 94 09/13/23 23:30 95 09/13/23 23:29 95 Nasal Cannula 2 09/13/23 23:20 92 09/13/23 23:10 94 09/13/23 23:00 09/13/23 23:00 92 09/13/23 22:59 95 Nasal Cannula 2 09/13/23 22:50 94 09/13/23 22:40 94 09/13/23 22:30 09/13/23 22:30 94 09/13/23 22:29 95 Nasal Cannula 2 09/13/23 22:20 93 09/13/23 22:10 94 09/13/23 22:00 09/13/23 22:00 93 09/13/23 21:59 Nasal Cannula 2 09/13/23 21:50 94 09/13/23 21:45 94 09/13/23 21:45 09/13/23 21:40 97 09/13/23 21:30 09/13/23 21:30 93 09/13/23 21:20 95 09/13/23 21:15 09/13/23 21:15 94 09/13/23 21:10 95 09/13/23 21:00 09/13/23 21:00 09/13/23 21:00 93 09/13/23 20:59 93 Nasal Cannula 2 09/13/23 20:50 94 09/13/23 20:45 09/13/23 20:45 93 09/13/23 20:40 94 09/13/23 20:30 09/13/23 20:30 93 09/13/23 20:29 94 Nasal Cannula 2
--- NOTE | 2023-09-14 17:18 | CT Scan Report ---
CT OF THE HEAD WITHOUT CONTRAST CLINICAL HISTORY: 24 hour repeat S/P TNK on 09/13/22 COMPARISON STUDY: Head CT, CTA of the head and MRI the brain September 13, 2023. CT DOSE: 625.8 mGy.cm TECHNIQUE: Helical axial images of the head were obtained without IV contrast. Automated exposure con trol was utilized for the study. A dose lowering technique was utilized adhering to the principles o f ALARA. FINDINGS: No acute intracranial hemorrhage, midline shift or mass effect is present. Small 1 cm acute infarct within the lateral right thalamus is better depicted on MRI of September 13, 2023. There is no evidence for hemorrhagic conversion. There is no mass effect. The ventricular system is unremarkable. The basal cisterns are patent. No extra-axial collections are present. There are no findings to sugg est acute dural sinus thrombosis or acute territorial infarct. No significant calvarial abnormalities are present. Visualized portions of the sinuses and mastoid air cells are clear. IMPRESSION: 1. No acute intracranial hemorrhage. No mass effect. 2. Small 1 cm acute infarct within the lateral right thalamus better depicted on MRI of September 13. ACT 112: Negative or not required by law. Electronically signed by: Hasmukh Tompkins M.D. 09/14/2023 5:16 PM
[2023-09-15 06:33] LABS: Basophils # (auto) 0.02 K/uL (0.00-0.20); Basophils % (auto) 0.3 %; Eosinophils # (auto) 0.02 K/uL (0.00-0.50); Eosinophils % (auto) 0.3 %; Hematocrit (blood only) 46.3 % (42.0-52.0); Hemoglobin 16.4 g/dl (14.0-18.0); Immature Granulocytes # (auto) 0.03 K/uL (0.01-0.20); Immature Granulocytes % (auto) 0.4 %; Lymphocytes # (auto) 1.78 K/uL (1.20-3.40); Lymphocytes % (auto) 24.2 %; Mean Corpuscular Hemoglobin 29.4 pg (25.0-34.0); Mean Corpuscular Hgb Conc 35.4 g/dL (32.0-36.0); Mean Corpuscular Volume 83.1 fL (80.0-100.0); Mean Platelet Volume 10.4 fL (9.4-12.4); Monocytes # (auto) 0.74 K/uL (0.11-0.59); Monocytes % (auto) 10.1 %; Neutrophils # (auto) 4.76 K/uL (1.40-6.50); Neutrophils % (auto) 64.7 %; Platelet Count 249 K/uL (130-400); RDW Coefficient of Variation 13.4 % (11.5-14.5); RDW Standard Deviation 40.6 fL (36.4-46.3); Red Blood Count 5.57 M/uL (4.70-6.10); White Blood Count 7.35 K/ul (4.8-10.8)
[2023-09-15 07:01] LABS: INR 1.1 (0.9-1.1); Prothrombin Time 11.7 Seconds (9.0-12.0)
[2023-09-15 07:08] LABS: Albumin Globulin Ratio 1.2 (0.9-2); Albumin Level 4.3 gm/dl (3.4-5.0); BUN Creatinine Ratio 18.7 (10-20); Bilirubin,Total 1.5 mg/dl (0.2-1.0); Calcium 9.6 mg/dl (8.6-10.3); Creatinine Clr Calc Pharmacy 133.1 ml/min; Est GFR (African American) 115.1 ml/min; Est GFR (Non-African American) 99.3 ml/min; Globulin 3.7 gm/dl (2.5-4.0); Magnesium 2.2 mg/dl (1.7-2.4); Potassium 3.6 mmol/L (3.5-5.1)
[2023-09-15] MEDS ORDERED: CLOPIDOGREL BISULFATE 300 MG TAB PO STA (07:38)
[2023-09-15] MEDS: ICU Protocol for HYPERglycemia SCH (07:40)
[2023-09-15] MEDS: amLODIPine BESYLATE 5 MG TAB PO SCH (09:23)
[2023-09-15] MEDS: DIVALPROEX DELAY RELEASE 500 MG TAB PO SCH ×2 (09:23→20:07)
[2023-09-15] MEDS: METOPROLOL TARTRATE 25 MG TAB PO SCH ×2 (09:23→20:07)
[2023-09-15] MEDS: ARIPIprazole 1 MG/ML ORAL SOLN 150 ML BTL PO SCH (09:24)
--- NOTE | 2023-09-15 09:36 | Hospitalist Progress Note ---
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 Acute Infarct in Lateral Right Thalamus | Left-sided Weakness -Presented to the ED via EMS on 09/13 with acute onset of left sided weakness/numbness in the facial and left extremities -Evaluated by Sarah Telestroke who recommended TNK: 25 mg of Tenecteplase was administered at 1556 09/13 -Neurology consulted, recommendations as below: -Started DAPT, statin (LDL goal <70), maintain BP within parameters -Repeat CT head completed, now will start DVT chemoprophylaxis -Avoid hypoglycemia, HgA1C goal <7 -TTE w/ bubble completed. Consider MCOT or ICM for chcf cardiac monitoring to rule out a. fib/flutter -PT/OT consulted: recommended continuing PT for decreased balance/safety -Continue fall precautions and aspiration precautions Note: patient had previously documented allergy to aspirin, but discussed this with patient who states he regularly takes aspirin without issue HTN (hypertension) emergency -Noted to be significantly hypertensive on arrival 09/13 at 248/71 -Increased the dose of his home Amlodipine to 10 mg daily -Continue current dosing of BID metoprolol History of seizures -Patient's Valproic acid level on admission is subtherapeutic at 11 mcg/mL -Was given an additional dose on admission -Monitor daily valproic acid level -Continue 1000 mg PO Depakote BID Schizophrenia spectrum disorder with psychotic disorder type not yet determined -Currently alert, oriented, and without signs of hallucinations -Continue Abilify Admission and Anticipated Discharge Date Admission Date: September 13, 2023 Supervising Physician Co-Signing Physician Notes Attending Physician Supervision Note: I independently interviewed and examined the patient and verified the rodriguez history and physical, reviewed labs and image studies and agree with findings and care plan noted above. Subjective Patient seen and examined at bedside. He notes that his left sided sensation is improved but not entirely resolved. States that his headache has gone away. Denies any pain or current concerns. 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
--- NOTE | 2023-09-15 10:29 | Neurology Progress Note ---
Date of Service September 15, 2023 Assessment & Plan (1) Acute CVA (cerebrovascular accident): Admission and Anticipated Discharge Date Admission Date: September 13, 2023 Subjective pt doing well. repeat CT head negative. no new issues today. some mild numbness on left side Results & Data Vital Signs (Past 12 Hours) Vital Signs Temp Pulse Pulse Resp BP BP Pulse Ox 09/15/23 03:35 37.2 C 62 20 139/70 96 09/15/23 02:07 09/15/23 00:00 73 09/14/23 23:57 37.0 C 66 20 141/75 H 93 O2 Del Method O2 Flow Rate 09/15/23 03:35 Nasal Cannula 2 09/15/23 02:07 Nasal Cannula 1 09/15/23 00:00 09/14/23 23:57 Nasal Cannula 2 Exam (Neuro) Physical Exam: Neuro: Mental: AOx4, fluent speech, normal comprehension, no apraxia, no L/R confusion, no neglect CN: PERRL, Full EOM, symmetric face, intact sensation t/o face, Motor: No abnormal movements, normal tone and bulk, 5/5 t/o bilaterally Sens: mild numbness to touch left arm/leg/face. Coord: intact FNT b/l DTR: 2+ sym b/l Impression: 48 yo male s/p TNKase, and left hemiparesthesia from rt thalamic ischemic stroke. doing well. Recommendations: do start DAPT and continue for 21 days and can do monotherapy after that as i recommended. finish up strok work up as now. Physical therapy for balance and walking eval. no new recommendations. stroke risk modifications as recommended on my initial note. call again if new question. can have routine f/u with his PCP or medical provider once discharged to care home. Chart reviewed I have spent more than 50% educating patient about potential diagnosis and neurological evaluation and coordinating care with patient's treatment team. Total time spent (including chart review and coordination of care): 50 min (this includes chart review). PG Care Time/CCT Total # of Minutes Spent Total Time Spent with Patient: Total time spent is greater than 50% in coordination of care (as documented) at patient's floor/unit and/or counseling patient: Coding Level of Care Code 36054 SUB INP/OBS CARE 3/50MIN Diagnoses Acute CVA (cerebrovascular accident) I63.9
[2023-09-15] MEDS ORDERED: ASPIRIN 325 MG ECTAB PO ONE (10:52)
[2023-09-15] MEDS ORDERED: ASPIRIN 81 MG ECTAB PO SCH (11:00)
[2023-09-15] MEDS: ROSUVASTATIN CALCIUM 20 MG TAB PO SCH (17:13)
[2023-09-15] MEDS: ENOXAPARIN INJ 40 MG/0.4 ML SYR SQ SCH (17:14)
[2023-09-16 07:09] LABS: Basophils # (auto) 0.03 K/uL (0.00-0.20); Basophils % (auto) 0.5 %; Eosinophils # (auto) 0.09 K/uL (0.00-0.50); Eosinophils % (auto) 1.6 %; Hematocrit (blood only) 47.4 % (42.0-52.0); Hemoglobin 16.3 g/dl (14.0-18.0); Immature Granulocytes # (auto) 0.03 K/uL (0.01-0.20); Immature Granulocytes % (auto) 0.5 %; Lymphocytes # (auto) 2.31 K/uL (1.20-3.40); Mean Corpuscular Hgb Conc 34.4 g/dL (32.0-36.0); Mean Corpuscular Volume 84.3 fL (80.0-100.0); Monocytes # (auto) 0.75 K/uL (0.11-0.59); Monocytes % (auto) 13.3 %; Neutrophils # (auto) 2.42 K/uL (1.40-6.50); Neutrophils % (auto) 43.1 %; Platelet Count 240 K/uL (130-400); RDW Standard Deviation 39.8 fL (36.4-46.3); Red Blood Count 5.62 M/uL (4.70-6.10); White Blood Count 5.63 K/ul (4.8-10.8)
[2023-09-16 07:30] LABS: Bilirubin,Total 1.2 mg/dl (0.2-1.0); Calcium 9.2 mg/dl (8.6-10.3); Magnesium 2.2 mg/dl (1.7-2.4); Potassium 3.4 mmol/L (3.5-5.1)
[2023-09-16 07:36] LABS: Albumin Globulin Ratio 1.1 (0.9-2); BUN Creatinine Ratio 22.6 (10-20); Creatinine Clr Calc Pharmacy 130.7 ml/min; Est GFR (African American) 112.1 ml/min; Est GFR (Non-African American) 96.7 ml/min; Globulin 3.6 gm/dl (2.5-4.0); Total Protein 7.6 gm/dl (6.0-8.3)
[2023-09-16] MEDS: METOPROLOL TARTRATE 25 MG TAB PO SCH ×2 (07:39→20:52)
[2023-09-16] MEDS: amLODIPine BESYLATE 5 MG TAB PO SCH (07:40)
[2023-09-16] MEDS: ARIPIprazole 1 MG/ML ORAL SOLN 150 ML BTL PO SCH ×2 (07:40→07:44)
[2023-09-16] MEDS: ROSUVASTATIN CALCIUM 20 MG TAB PO SCH (07:40)
[2023-09-16] MEDS: DIVALPROEX DELAY RELEASE 500 MG TAB PO SCH ×2 (07:40→20:51)
[2023-09-16 07:43] LABS: INR 1.1 (0.9-1.1); Prothrombin Time 11.6 Seconds (9.0-12.0)
--- NOTE | 2023-09-16 08:50 | Hospitalist Progress Note ---
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 Acute Infarct in Lateral Right Thalamus | Left-sided Weakness -Presented to the ED via EMS on 09/13 with acute onset of left sided weakness/numbness in the facial and left extremities -Evaluated by Sarah Telestroke who recommended TNK: 25 mg of Tenecteplase was administered at 1556 09/13 -Neurology consulted, recommendations as below: -Started DAPT, statin (LDL goal <70), maintain BP within parameters -Repeat CT head completed, now will start DVT chemoprophylaxis -Avoid hypoglycemia, HgA1C goal <7 -TTE w/ bubble completed. Consider MCOT or ICM for long-term cardiac monitoring to rule out a. fib/flutter -PT/OT consulted: recommended continuing PT for decreased balance/safety -Per discussions with case management, patient will return to [facility] on discharge -Continue fall precautions and aspiration precautions Note: patient had previously documented allergy to aspirin, but discussed this with patient who states he regularly takes aspirin without issue HTN (hypertension) -Noted to be significantly hypertensive on arrival 09/13 at 248/71 -Increased the dose of his home Amlodipine to 10 mg daily -Continue current dosing of BID metoprolol History of seizures -Patient's Valproic acid level on admission is subtherapeutic at 11 mcg/mL -Was given an additional dose on admission -Monitor daily valproic acid level -Continue 1000 mg PO Depakote BID Schizophrenia spectrum disorder with psychotic disorder type not yet determined -Currently alert, oriented, and without signs of hallucinations -Continue Abilify Admission and Anticipated Discharge Date Admission Date: September 13, 2023 Supervising Physician Co-Signing Physician Notes Attending Physician Supervision Note: I independently interviewed and examined the patient and verified the rodriguez history and physical, reviewed labs and image studies and agree with findings and care plan noted above. Subjective Patient seen and examined at bedside. In no acute distress, resting comfortably. States that his sensation at his left side is improving slightly. He worked with PT yesterday, states he is concerned about going back to the custodial because he will have to climb 10+ stairs at least twice per day. He denies any headache or pain today. Review of Systems Review of Systems: As per above Physical Exam Constitutional: WD/WN, vitals as above Eyes: + anicteric sclerae; no conjunctival abn ormality ENMT: Ears: no external ear abnormality Nose: no external nose abnormality Respiratory: normal respiratory effort; no respiratory distress and does not use accessory muscles Cardiovascular: Rate/Rhythm: regular rate and regular rhythm Extremities: no edema Musculoskeletal: Moves all limbs independently Skin: no rashes, warm and dry Psychiatric: A+Ox3, euthymic affect Results & Data Results & Data Vital Signs (Past 12 Hours) Vital Signs Temp Pulse Pulse Resp BP Pulse Ox O2 Del Method 09/16/23 07:41 36.6 C 71 20 134/79 92 Room Air 09/16/23 03:36 36.8 C 70 20 135/87 93 Room Air 09/16/23 00:00 74 09/15/23 23:39 37.0 C 71 20 114/70 91 Room Air Resident Activity Tracking Resident Involvement: Resident Care Provided Care Provided: Adult Hospital Medicine"
[2023-09-16] MEDS: ASPIRIN 81 MG ECTAB PO SCH (09:10)
[2023-09-16] MEDS: ENOXAPARIN INJ 40 MG/0.4 ML SYR SQ SCH (17:19)
[2023-09-16] MEDS ORDERED: CLOPIDOGREL BISULFATE 75 MG TAB PO ONE (18:30)
--- NOTE | 2023-09-17 07:03 | Discharge Summary ---
"Date of Service September 17, 2023 Admission HPI Per Admitting Provider John is a 48 year old male inmate of [facility] with a PMH significant for seizure disorder, HTN, and schizophrenia who presented to the [facility] ED via EMS on 09/13/23 for acute onset of left sided weakness. Per the ED staff the patients last known well was approximately 1245 this afternoon. On arrival the patient was noted to be significantly hypertensive at 248/71 but otherwise stable. Labs were significant for a total bili of 1.1, and decreased valproic acid level of 11. CT of the head wo con and CTA of the head/neck were read as negative for acute findings. The patient was initially given 2 doses of 10 mg of IV labetalol. Per the ED staff, they spoke with the Louise Telestroke provider who recommended TNK administration after controlling the patients blood pressure. The patient was started on a Nicardipine drip at 5 mg/hr and 25 mg of IV Tenecteplase was administered at 1556. At the time of the exam the patient was sitting in bed in no acute distress. He states that he woke in his normal state of health without any complaints. He was in his cell watching TV around 1245 when he experienced an acute onset of lightheadedness with left sided facial, LUE, and LLE numbness with weakness. He opened his window and laid on his bed but symptoms persisted so he was sent to the [facility]. He states that he did have his am medications including 5 mg Amlodipine and 50 mg Metoprolol Tartrate. He states that he was given 100 mg of another PO medication but is unsure of the name. At this time he states that he is experiencing a headache and his left sided numbness with LUE and LLE weakness have not changed. He denies current tobacco use. He currently denies changes in vision, hearing, taste, smell, chest pain, SOB, cough, abd pain, nausea, vomiting, diarrhea, dysuria, hematuria, melena, LE swelling, and recent trauma. I spoke to the [facility] to obtain further information. They confirm that he had all his am medications including his amlodipine, metoprolol, Abilify, and am dose of Depakote. They also confirmed that the patient was given 100 mg PO Labetalol prior to EMS arrival. Please refer to Dr. Martínez's attestation for any changes to the treatment plan Admission Exam Per Admitting Provider Physical Exam: General: In no acute distress, stated age, well-nourished, good hygiene HEENT: Normocephalic, atraumatic, no scleral icterus, pupils around round, symmetrical, and reactive to light, moist mucus membranes, trachea midline, no thyromegaly Chest/Pulm: No respiratory distress, symmetrical chest expansion, clear breath sounds throughout Cardiac: RRR, no murmurs noted Abdomen: Negative for ascites and bruising, normoactive bowel sounds, soft, non- tender to palpation throughout Musculoskeletal: Symmetrical and without signs of acute trauma Extremities: Radial, dorsalis pedis, and posterior tibial pulses are intact and symmetrical, no edema noted in the BL LE's Skin: Warm, dry, no rashes , lesions, or scars noted Neuro: Alert and oriented to person, place, month, year, and president, no focal defects, CN II-XII tested with decreased sensation on the left face but otherwise intact, positive left sided cerebellar testing but negative right sided, decreased strength in the left upper/lower extremities compared to right, no tremors noted Psych: No acute distress, calm and cooperative during the exam Principal Diagnosis CVA s/p TNK Discharge Exam Gen: NAD, alert, interactive HEENT: NCAT, full ROM Resp:Non-labored, no wheezing/rhonchi/rales, CTAB CV:RRR, normal S1/S2, no M/R/G Abd: Soft, non-distended, no TTP, normoactive bowels, no masses Extr: 2+ dp bilaterally, no edema, UE strength 5/5 right & 4/5 L, LE strength 5/5 bilaterally, sensation intact bilaterally w/ hypersensitivity to LUE Skin: No rashes lesions or erythema Discharge Data Allergies Allergy/AdvReac Type Severity Reaction Status Date / Time acetaminophen Allergy Unknown ON SCI Verified 09/13/23 15:09 [facility] L[facility] caffeine Allergy Unknown ON SCI Verified 09/13/23 15:10 [From Excedrin Migraine] [facility] L[facility] chlorpromazine Allergy Unknown ON SCI Verified 09/13/23 15:09 [facility] MED LIST Consultations 09/13/23 16:03 ED Decision to Admit Stat 09/13/23 16:16 Consult Neurology Routine 09/13/23 19:26 Consult Chemistry Research Assistant Routine Ordered Studies 09/13/23 14:48 CT angio head w con Stat CT angio neck with con Stat CT head/brain wo con Stat 09/13/23 16:32 MRI Brain [MR brain wo con] Urgent 09/13/23 18:58 CT head/brain wo con Stat 09/14/23 15:50 CT head/brain wo con Routine Hospital Course (1) Acute CVA (cerebrovascular accident): (2) 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 Acute Infarct in Lateral Right Thalamus | Left-sided Weakness -Presented to the ED via EMS on 09/13 with acute onset of left sided weakness/num bness in the facial and left extremities -Evaluated by Louise Telestroke who recommended TNK: 25 mg of Tenecteplase was administered at 1556 09/13 -Neurology consulted, recommendations as below: -Started DAPT, statin (LDL goal <70), maintain BP within parameters -Repeat CT head completed -HgA1C <6 -TTE w/ bubble completed. Consider MCOT or ICM for long-term cardiac monitoring to rule out a. fib/flutter -PT/OT consulted: recommended continuing PT for decreased balance/safety Note: patient had previously documented allergy to aspirin, but discussed this with patient who states he regularly takes aspirin without issue HTN (hypertension) -Noted to be significantly hypertensive on arrival 09/13 at 248/71 -Increased the dose of his home Amlodipine to 10 mg daily -Continue current dosing of BID metoprolol - BP stable (140s/70s) at discharge History of seizures -Patient's Valproic acid level on admission is subtherapeutic at 11 mcg/mL -Was given an additional dose on admission -Valproate level before discharge 93. -Continue 1000 mg PO Depakote BID Schizophrenia spectrum disorder with psychotic disorder type not yet determined -Currently alert, oriented, and without signs of hallucinations -Continue Abilify Diet: Hearth Healthy Code: Full DVT Ppx: Lovenox (inpatient) Dispo: [facility] Total Time Total Time Spent Total Time Spent (In Minutes): See attending attestation Discharge Plan Discharge Items [facility] Disposition[facility] Reason For Visit: STROKE ALERT Discharge Diagnosis: CVA Activity: Per Instructions section Non-emergency contact: Primary Care Provider Call non-emergency contact if: you have any medication questions and your symptoms worsen Follow-up/Referrals: Jose ESCOBAR [Primary Care Provider] - Diet: Heart Healthy Addtl Attending Provider Instructions: John Green is a 48 year old male inmate of [facility] with a PMH significant for seizure disorder, HTN, and schizophrenia who presented to the [facility] ED via EMS on 09/13/23 for acute onset of left sided weakness. Acute Infarct in Lateral Right Thalamus | Left-sided Weakness Presented to the ED via EMS on 09/13 with acute onset of left sided weakness/numbness in the facial and left extremities. Evaluated by Louise Telestroke who recommended TNK: 25 mg of Tenecteplase was administered at 15:56 on 09/13 -MRI brain, and two CT head obtained: rt thalamic ischemic stroke. TTE completed with negative bubble study. -Fortunately, over the course of the admission the patient's sensation/weakness has made some improvement -Neurology consulted, recommendations as below: * Started DAPT: Plavix 75mg daily and Aspirin 81mg daily. After 21 days of DAPT, switch to monotherapy of aspirin or Plavix. * Started statin (LDL goal <70): Rosuvastatin 20mg daily * Long-term systolic BP goal of <130. HgA1C goal <7 * Upon discharge, patient should be set up with long-term cardiac monitoring (i.e. MCOT or ICM) to rule out a.fib/flutter, anticoagulate if identified. -PT/OT consulted, patient received therapy during admission, deemed patient safe for discharge to [facility]. Note: patient had previously documented allergy to aspirin, but discussed this with patient who states he regularly takes aspirin without issue HTN (hypertension) -Noted to be significantly hypertensive on arrival 09/13 at 248/71 -Increased the dose of his home Amlodipine to 10 mg daily -Continue current dosing of BID metoprolol * Goal systolic BP <130 per neurology as above History of seizures -Patient's Valproic acid level on admission is subtherapeutic at 11 mcg/mL -Was given an additional dose on admission, subsequent valproic acid levels have been 73 (09/14), 93 (09/15), and 93 (09/16) * Continue 1000 mg PO Depakote BID * Consider repeating interval valproic acid level after discharge Schizophrenia spectrum disorder with psychotic disorder type not yet determined -Currently alert, oriented, and without signs of hallucinations -Continue Abilify Pending Studies at Discharge: No Stand-Alone Forms: My [facility] Skilled Items Patient informed of condition?: Yes Discharge Level of Care: Other Communicable Disease: No Discharge Prognosis: Stable Lines: None Urinary Catheter: No Medications and DC Order Prescriptions: New clopidogrel 75 mg Tablet 75 mg PO QAM Qty: 0 0RF amlodipine [Norvasc] 5 mg Tablet 10 mg PO QAM Qty: 0 0RF aspirin 81 mg Tablet,Delayed Release (Dr/Ec) 81 mg PO QAM Qty: 0 0RF rosuvastatin [Crestor] 20 mg Tablet 20 mg PO QAM Qty: 0 0RF Continued diphenhydramine HCl 50 mg Capsule 50 mg PO BID divalproex [Depakote] 250 mg Tablet,Delayed Release (Dr/Ec) 1,000 mg PO BID metoprolol tartrate 50 mg Tablet 50 mg PO BID aripiprazole [Abilify] 5 mg Tablet 5 mg PO DAILY Rx Instructions: TOTAL DOSE 7 MG--TAKES WITH 2 MG TAB. aripiprazole [Abilify] 2 mg Tablet 2 mg PO DAILY Rx Instructions: TOTAL DOSE 7 MG--TAKES WITH 5 MG TAB. Discontinued amlodipine 5 mg Tablet 5 mg PO DAILY Discharge Orders: Discharge Order (Routine); Ordered 09/17/23 Ordered By: Yumiko Jhaveri Admission Data Admit Date/Time: 09/13/23 16:15 Attending Provider: Rosy Newman Admit Provider: Leonard Martínez Primary Care Provider: Jose ESCOBAR Other Providers: Leonard Martínez; Aiden Curiel; Maximus Bourgeois Other Interventions: Discharge Summary Assessment (RN) Last Done: 09/17/23 10:48 Supervising Physician Co-Signing Physician Notes Attending Physician Supervision Note: I independently interviewed and examined the patient and verified the rodriguez his tory and physical, reviewed labs and image studies and agree with findings and care plan noted above. Resident Activity Tracking Resident Involvement: Resident Care Provided Care Provided: Adult [facility] Medicine"
[2023-09-17] MEDS ORDERED: CLOPIDOGREL BISULFATE 75 MG TAB PO SCH (09:00)
[2023-09-17] MEDS: METOPROLOL TARTRATE 25 MG TAB PO SCH (09:04)
[2023-09-17] MEDS: DIVALPROEX DELAY RELEASE 500 MG TAB PO SCH (09:05)
[2023-09-17] MEDS: ASPIRIN 81 MG ECTAB PO SCH (09:05)
[2023-09-17] MEDS: ARIPIprazole 1 MG/ML ORAL SOLN 150 ML BTL PO SCH ×2 (09:05→09:20)
[2023-09-17] MEDS: ROSUVASTATIN CALCIUM 20 MG TAB PO SCH (09:05)
[2023-09-17] MEDS: amLODIPine BESYLATE 5 MG TAB PO SCH (09:05)
== END 2023-09-17 12:36 | DRG 62 ==
LOC: ED 14:42 → SUATTDRO 16:15 → 1E 16:15 → 4W 09-14 18:55